=== PATIENT | female | born 1950 | race Caucasian/White ===

== ENCOUNTER → 2016-09-14 | Outpatient (CLI) | payer MEDICARE, OTHER ==
--- NOTE | 2016-09-14 15:10 | MR ---
EXAMINATION TYPE: MR angio neck wo/w con DATE OF EXAM: 09/14/2016 2:10 PM COMPARISON: 12/31/2014 HISTORY: Carotid stenosis, Visual disturbance, BP fluctuation Three-dimensional [id number] cervical carotid MRA was performed with multiple intensity projectio n images submitted and source data reviewed at the workstation. Right carotid system: There is mild plaque seen about the common carotid artery. Mild plaque is also seen at the origin and proximal aspect of the right internal carotid artery. Stenosis is estimated at approximately 50%. Unchanged from prior study. Right external carotid artery right vertebral art gayathri are patent. Left carotid system: Mild plaque involving the left common carotid artery. Minimal plaque origin le ft ICA. No hemodynamically significant stenosis is appreciated. External carotid artery and the lef t vertebral artery are patent. Mild atheromatous change left external carotid artery. IMPRESSION: 1. Stable 50% stenosis origin right ICA. 2. No significant stenosis left ICA.
== END | disposition home or self-care (01) ==
LOC: RADMRIMAIN 12:52
PROVIDERS: ATTEND Family Medicine
DX: I65.21 Occlusion and stenosis of right carotid artery (principal)
CPT/HCPCS: 70549; A9577

== ENCOUNTER 2017-02-27 01:55 | Emergency (ER) | payer MEDICARE, OTHER ==
[2017-02-27 02:10] VITALS: RESP 20; TEMP 98.5
[2017-02-27] MEDS ORDERED: LEVALBUTEROL NEB 1.25 MG/3 ML AMP INHALATION STA (02:27)
[2017-02-27] MEDS ORDERED: IPRATROPIUM 0.5 MG/2.5 ML NEBU INHALATION STA (02:27)
--- NOTE | 2017-02-27 02:30 | ED ---
General Adult HPI - General Chief complaint: Shortness of Breath Stated complaint: SOB Time Seen by Provider: 02/27/17 02:21 Source: patient, RN notes reviewed Mode of arrival: wheelchair Limitations: no limitations - History of Present Illness Initial comments: Patient is a pleasant 66-year-old female presenting to the emergency Department with cough and difficulty breathing. Onset of symptoms was just a couple of days ago. Patient tried to call her doctor yesterday however he was not in the office. Patient complains of thick yellow-green sputum. Symptoms have worsened since yesterday. Patient is unclear if she is having fevers or not. No chest pain. No leg pain or leg swelling. Symptoms are similar to previous COPD however she is concerned she could be developing pneumonia. - Related Data Home Medications Medication Instructions Recorded Confirmed Hydrochlorothiazide [Hydrodiuril] 25 mg PO DAILY 03/23/14 06/04/16 Levothyroxine Sodium [Synthroid] 75 mcg PO Q48H 03/23/14 06/04/16 Levothyroxine Sodium [Synthroid] 150 mcg PO Q48H 03/23/14 06/04/16 Lisinopril [Prinivil] 20 mg PO BID 03/23/14 06/04/16 Mometasone Furoate [Asmanex] 1 puff INHALATION BID 03/23/14 06/04/16 traMADol HCL [Ultram] 75 - 100 mg PO Q6HR PRN 03/23/14 06/04/16 ALPRAZolam [Xanax] 0.25 mg PO BID PRN 08/05/15 06/04/16 Metoprolol Tartrate [Lopressor] 25 mg PO BID 09/17/15 06/04/16 Aspirin 650 mg PO DAILY PRN 11/29/15 06/04/16 Cholecalciferol [Vitamin D3] 4,000 unit PO DAILY 11/29/15 06/04/16 Pantoprazole Sodium 40 mg PO DAILY 11/29/15 06/04/16 amLODIPine BESYLATE [Norvasc] 5 mg PO BID 11/29/15 06/04/16 Mometasone Furoate [Asmanex] 1 puff INHALATION BID 12/07/15 06/04/16 Previous Rx's Medication Instructions Recorded Ciprofloxacin HCl [Cipro] 500 mg PO Q12HR #14 tablet 12/07/15 Doxycycline Monohydrate [Monodox] 100 mg PO Q12HR #14 cap 06/04/16 predniSONE 50 mg PO DAILY #5 tab 06/04/16 Azithromycin [Zithromax Z-pack] 250 mg PO DIRECTED #6 tab 02/27/17 predniSONE 20 mg PO BID #8 tab 02/27/17 Allergies Allergy/AdvReac Type Severity Reaction Status Date / Time adhesive tape Allergy Severe bruises Verified 02/27/17 02:10 albuterol Allergy Rapid Verified 02/27/17 02:10 Heart Rate clindamycin Allergy Rash/Hives Verified 02/27/17 02:10 Iodinated Contrast- Oral and Allergy Rash/Hives Verified 02/27/17 02:10 IV Dye diphenhydramine HCl AdvReac Unknown KEEPS HER Verified 02/27/17 02:10 [From Benadryl] AWAKE. bandaid Allergy Severe bruise Uncoded 02/27/17 02:10 Review of Systems ROS Statement: Those systems with pertinent positive or pertinent negative responses have been documented in the HPI. ROS Other: All systems not noted in ROS Statement are negative. Constitutional: Denies: weakness Eyes: Denies: eye pain ENT: Denies: ear pain Respiratory: Reports: cough, dyspnea Cardiovascular: Denies: chest pain Endocrine: Denies: fatigue Gastrointestinal: Denies: abdominal pain Genitourinary: Denies: dysuria Musculoskeletal: Denies: back pain Skin: Denies: rash Neurological: Denies: weakness Past Medical History Past Medical History: COPD, GERD/Reflux, Hypertension, Osteoarthritis (OA), Thyroid Disorder Additional Past Medical History / Comment(s): Osteopenia, carotid stenosis, back pain, hypothyroid., STATES BRUISE ON FACE FROM TEETH EXTRACTION., PTS MOTHER LIVES WITH HER (90 YRS OLD). History of Any Multi-Drug Resistant Organisms: None Reported Past Surgical History: No Surgical Hx Reported Additional Past Anesthesia/Blood Transfusion Reaction / Comment(s): PT HAS NEVER RECEIVED ANESTHESIA Past Psychological History: Anxiety, Panic Disorder Smoking Status: Heavy tobacco smoker Past Alcohol Use History: None Reported Past Drug Use History: None Reported - Past Family History Mother Family Medical History: Thyroid Disorder Additional Family Medical History / Comment(s): hypothyroid Father Additional Family Medical History / Comment(s): unknown cardiac issues Brother(s) Additional Family Medical History / Comment(s): Chrons General Exam Limitations: no limitations General appearance: alert, in no apparent distress Head exam: Present: atraumatic Eye exam: Present: normal appearance, PERRL ENT exam: Present: normal oropharynx Neck exam: Present: normal inspection Respiratory exam: Present: wheezes Cardiovascular Exam: Present: regular rate, normal rhythm GI/Abdominal exam: Present: soft. Absent: tenderness Extremities exam: Present: normal inspection. Absent: pedal edema, calf tenderness Neurological exam: Present: alert Psychiatric exam: Present: normal affect, normal mood Skin exam: Present: normal color Course Vital Signs 02/27/17 02/27/17 02/27/17 02:02 02:57 03:07 Temperature 98.5 F Pulse Rate 93 92 92 Respiratory 20 Rate Blood Pressure 180/79 O2 Sat by Pulse 95 Oximetry Medical Decision Making - Medical Decision Making Patient reevaluated and improved. Patient requesting discharge. Patient requests antibiotics and steroids. Patient updated on results and need for close follow-up. - Radiology Data Radiology results: image reviewed (Chest x-ray shows chronic interstitial changes without acute process.) Disposition Clinical Impression: Acute bronchitis Disposition: HOME SELF-CARE Instructions: Acute Bronchitis (ED) Additional Instructions: Please follow-up to primary care physician in the next day or 2 for recheck. Return for fevers, difficult to breathing, pain, worsening symptoms or other concerns. Prescriptions: Azithromycin [Zithromax Z-pack] 250 mg PO DIRECTED #6 tab predniSONE 20 mg PO BID #8 tab Referrals: Martin Coe MD [Primary Care Provider] - 1-2 days Time of Disposition: 03:09
[2017-02-27] MEDS ORDERED: LEVALBUTEROL NEB (CONC) 1.25 MG/0.5 ML AMP INHALATION STA ×2 (02:49→02:54)
--- NOTE | 2017-02-27 03:02 | XR ---
EXAM: XR Chest, 2 Views CLINICAL HISTORY: Cough TECHNIQUE: Frontal and lateral views of the chest. COMPARISON: No relevant prior studies available. FINDINGS: Lungs: Coarsening of interstitial markings is again seen, likely representing chronic interstitial lung changes. Flattening of both hemidiaphragms is noted consistent with COPD. Pleural space: Unremarkable. No pneumothorax. Heart: Unremarkable. No cardiomegaly. Mediastinum: Unremarkable. Bones/joints: Unchanged osseous structures. Osteopenia suggested. IMPRESSION: Chronic interstitial lung changes with evidence of COPD. No radiographic evidence of acute cardiopulmonary process.
[2017-02-27] MEDS ORDERED: predniSONE 20 MG TAB PO STA (03:10)
[2017-02-27] MEDS ORDERED: AZITHROMYCIN 500 MG TAB PO STA (03:10)
[2017-02-27 03:25] VITALS: BP 123/60; PULSE 84
== END 2017-02-27 03:25 | disposition home or self-care (01) ==
LOC: EC 01:55
DX: J20.9 Acute bronchitis, unspecified (principal); I10 Essential (primary) hypertension; J44.9 Chronic obstructive pulmonary disease, unspecified; K21.9 Gastro-esophageal reflux disease without esophagitis; E03.9 Hypothyroidism, unspecified; F17.200 Nicotine dependence, unspecified, uncomplicated; Z79.51 Long term (current) use of inhaled steroids; Z79.899 Other long term (current) drug therapy; Z88.1 Allergy status to other antibiotic agents; Z88.8 Allergy status to other drugs, medicaments and biological substances; Z91.041 Radiographic dye allergy status; Z91.048 Other nonmedicinal substance allergy status
CPT/HCPCS: 99285; 94640; 71020; J7512

== ENCOUNTER → 2017-12-11 | Outpatient (CLI) | payer MEDICARE, OTHER ==
--- NOTE | 2017-12-11 10:19 | BD ---
EXAMINATION TYPE: Axial Bone Density DATE OF EXAM: 12/11/2017 CLINICAL HISTORY: Height: 60 inches Weight: 159 FRAX RISK QUESTIONS: Alcohol (3 or more units per day): no Family History (Parent hip fracture): no Glucocorticoids (More than 3mos): Arnuity about one year & Asmanex before that (Ex: prednisone, prednisolone, methylprednisolone, dexamethasone, and hydrocortisone). History of Fracture in Adulthood: no Secondary Osteoporosis: 1. Type 1 Diabetes: no 2. Hyperthyroidism: NO 3. Menopause before 45: NO 4. Malnutrition: NO 5. Chronic liver disease: no Rheumatoid Arthritis: no Current Tobacco Use: yes RISK FACTORS HISTORY OF: Family History of Osteoporosis: yes, mother Active: yes Diet low in dairy products/other sources of calcium: no Postmenopausal woman: YES Take estrogen and/or progesterone medications: no Lost more than 2 inches in height since high school: no Frequent falls: no Poor Health: "pretty lousy" Hyperparathyroidism: no Adrenal Insufficiency: no MEDICATIONS: Prednisone or other steroids: yes, inhaler How Long: several years Thyroid Medications: YES Which medication: Levothyroxine How Long: OVER 5 YEARS Osteoporosis Medications: no Additional Medications: Vitamin D3 , blood pressure meds, diaretic, statin, tranadol Additional History: carotid stenosis EXAM MEASUREMENTS: Bone mineral densitometry was performed using the [employer] System. Bone mineral density as measured about the Lumbar spine is: ----- L1-L4(G/cm2): 0.871 T Score Values are as follows: ----- L2: -2.8 ----- L3: -2.7 ----- L4: -2.7 ----- L1-L4: -2.5 Bone mineral density has: Decreased -8.3% since study of: 10/29/2014 Bone mineral density about the R hip (g/cm2): 0.702 Bone mineral density about the L hip (g/cm2): 0.680 T Score values are as follows: -----R Neck: -2.4 -----L Neck: -2.6 -----R Total: -1.8 -----L Total: -2.0 Bone mineral density has: Decreased -10.2% since study of: 10/29/2014 IMPRESSION: 1. Osteoporosis lumbar spine. 2. Osteopenia bilateral femora. NOTE: T-SCORE=SD OF THE YOUNG ADULT MEAN.
--- NOTE | 2017-12-12 08:56 | MM ---
Reason for exam: screening (asymptomatic). Last mammogram was performed 2 years and 1 month ago. History: Patient is postmenopausal. Took unspecified hormones for 2 years beginning at age 55. Physical Findings: A clinical breast exam by your physician is recommended on an annual basis and results should be correlated with mammographic findings. MG Screening Mammo w CAD Bilateral CC and MLO view(s) were taken. Prior study comparison: November 24, 2015, bilateral MG screening mammo w CAD. October 29, 2014, bilateral MG screening mammo w CAD. There are scattered fibroglandular densities. There is no discrete abnormality. No significant changes when compared with prior studies. ASSESSMENT: Negative, BI-RAD 1 RECOMMENDATION: Routine screening mammogram of both breasts in 1 year.
== END | disposition home or self-care (01) ==
LOC: RADMAMWWP 08:48
PROVIDERS: ATTEND Family Medicine
DX: Z12.31 Encounter for screening mammogram for malignant neoplasm of breast (principal); M81.0 Age-related osteoporosis without current pathological fracture; M85.851 Other specified disorders of bone density and structure, right thigh; M85.852 Other specified disorders of bone density and structure, left thigh; Z78.0 Asymptomatic menopausal state
CPT/HCPCS: 77067; 77080

== ENCOUNTER → 2018-09-18 | Outpatient (CLI) | payer MEDICARE, OTHER ==
[2018-09-18 18:28] LABS: ALT 14 U/L (8-44); AST 20 U/L (13-35); Albumin/Globulin Ratio 2.44 (1.60-3.17); Alkaline Phosphatase 80 U/L (41-126); Bilirubin, Conjugated <0.20 mg/dL (0.20-0.40); Calcium 9.9 mg/dL (8.7-10.3); Carbon Dioxide 23.5 mmol/L (21.6-31.8); Chloride 111 mmol/L (96-109); Globulin 1.8 g/dL (1.6-3.3); Glucose 89 mg/dL (70-110); Potassium 4.5 mmol/L (3.5-5.5); Sodium 142 mmol/L (135-145); Total Bilirubin 0.3 mg/dL (0.2-1.2); Total Protein 6.2 g/dL (6.2-8.2)
== END | disposition home or self-care (01) ==
LOC: LABWHC1 08:31
PROVIDERS: ATTEND Nurse Practitioner Women's Health
DX: R94.4 Abnormal results of kidney function studies (principal)
CPT/HCPCS: 36415; 80048; 80076

== ENCOUNTER → 2018-10-18 | Outpatient (CLI) | payer MEDICARE, OTHER ==
[2018-10-18 23:42] LABS: Hemoglobin A1C 6.5 % (4.0-6.0)
== END ==
LOC: LABWHC1 14:43
PROVIDERS: ATTEND Family Medicine
DX: Z00.00 Encounter for general adult medical examination without abnormal findings (principal); E11.9 Type 2 diabetes mellitus without complications; I10 Essential (primary) hypertension; Z79.899 Other long term (current) drug therapy
CPT/HCPCS: 36415; 83036; 86803

== ENCOUNTER → 2018-11-20 | Outpatient (CLI) | payer MEDICARE, OTHER ==
[2018-11-20 18:40] LABS: Rheumatoid Factor 7 IU/mL (0-15)
[2018-11-20 18:59] LABS: C Reactive Protein <0.4 mg/dL (0.0-0.8); Uric Acid 4.6 mg/dL (2.9-7.7)
== END | disposition home or self-care (01) ==
LOC: LABWHC1 12:24
PROVIDERS: ATTEND Family Medicine
DX: J44.9 Chronic obstructive pulmonary disease, unspecified (principal); E11.9 Type 2 diabetes mellitus without complications; E78.5 Hyperlipidemia, unspecified; I10 Essential (primary) hypertension; E03.9 Hypothyroidism, unspecified; R94.4 Abnormal results of kidney function studies
CPT/HCPCS: 36415; 84550; 85652; 86038; 86140; 86431; 86780

== ENCOUNTER → 2019-03-04 | Outpatient (CLI) | payer MEDICARE, OTHER ==
[2019-03-04 11:10] LABS: Anisocytosis Slight; Basophils # (A) 0.1 k/uL (0-0.2); Basophils % (A) 1 %; Eosinophils # (A) 0.2 k/uL (0-0.7); Eosinophils % (A) 2 %; HCT 41.6 % (34.0-46.0); HGB 13.5 gm/dL (11.4-16.0); Lymphocytes # (A) 2.4 k/uL (1.0-4.8); Lymphocytes % (A) 29 %; MCH 27.6 pg (25.0-35.0); MCHC 32.4 g/dL (31.0-37.0); MCV 85.1 fL (80.0-100.0); Mean Platelet Volume 7.1; Monocytes # (A) 0.5 k/uL (0-1.0); Monocytes % (A) 6 %; Neutrophils # (A) 4.9 k/uL (1.3-7.7); Neutrophils % (A) 60 %; Platelet Count 287 k/uL (150-450); RBC 4.89 m/uL (3.80-5.40); RDW 16.6 % (11.5-15.5); WBC 8.2 k/uL (3.8-10.6)
[2019-03-04 17:38] LABS: African American GFR (CKD) 76.1 (60.0-200.0); Albumin 4.5 g/dL (3.80-4.90); Albumin/Globulin Ratio 2.37 (1.60-3.17); BUN/Creat Ratio 24.44 Ratio (12.00-20.00); Calcium 10.1 mg/dL (8.7-10.3); Chol/HDL Ratio 2.38; Globulin 1.9 g/dL (1.6-3.3); LDL Cholesterol,Calculated 61.8 mg/dL (0.0-131.0); Total Bilirubin 0.3 mg/dL (0.2-1.2); Total Protein 6.4 g/dL (6.2-8.2); VLDL Calculation 15.2 mg/dL (5.00-40.00)
[2019-03-04 20:36] LABS: Hemoglobin A1C 6.2 % (4.0-6.0)
== END | disposition home or self-care (01) ==
LOC: LABWHC1 09:40
PROVIDERS: ATTEND Family Medicine
DX: I10 Essential (primary) hypertension (principal); E11.9 Type 2 diabetes mellitus without complications; F41.1 Generalized anxiety disorder; E78.49 Other hyperlipidemia
CPT/HCPCS: 36415; 80053; 80061; 83036; 84443; 85025

== ENCOUNTER 2019-06-07 10:18 | Emergency (ER) | payer MEDICARE, OTHER ==
[2019-06-07 10:44] VITALS: RESP 16
--- NOTE | 2019-06-07 11:01 | ED ---
SOB HPI - General Chief Complaint: Shortness of Breath Stated Complaint: STAR Time Seen by Provider: 06/07/19 10:25 Source: patient Mode of arrival: ambulatory Limitations: no limitations - History of Present Illness Initial Comments: Patient is a 68-year-old female, past medical history of COPD, presenting to emergency Department with complaints of shortness of breath and cough that started this morning. Patient noticed mild symptoms yesterday but they increased today. Patient is also producing yellow phlegm mixed with small amount of blood. Patient states she has shortness of breath when walking around her house. Patient states she has tried her inhalers at home with only minimal relief. Patient states that she knows her diagnosis is pneumonia and just wants updated medication. Patient states she has amoxicillin and steroids at home. Patient is refusing breathing treatment already. Patient denies fever, chills, chest pain, nausea, vomiting. Patient has no other complaints at this time. Upon arrival to the ER, her BP is slightly elevated at 176/83, 93% on room air, rest of vitals normal. - Related Data Home Medications Medication Instructions Recorded Confirmed Levothyroxine Sodium [Synthroid] 75 mcg PO Q48H 03/23/14 06/07/19 Levothyroxine Sodium [Synthroid] 150 mcg PO Q48H 03/23/14 06/07/19 traMADol HCL [Ultram] 75 - 100 mg PO Q6HR PRN 03/23/14 06/07/19 ALPRAZolam [Xanax] 0.25 mg PO BID PRN 08/05/15 06/07/19 Metoprolol Tartrate [Lopressor] 25 mg PO BID 09/17/15 06/07/19 Aspirin 325 mg PO BID 11/29/15 06/07/19 Pantoprazole Sodium 40 mg PO DAILY 11/29/15 06/07/19 amLODIPine BESYLATE [Norvasc] 5 mg PO BID 11/29/15 06/07/19 metFORMIN HCL ER [Glucophage Xr] 1,000 mg PO DAILY 04/22/19 06/07/19 Atorvastatin [Lipitor] 40 mg PO HS 06/07/19 06/07/19 Calcium Carbonate [Calcium] 600 mg PO DAILY 06/07/19 06/07/19 Cyanocobalamin (Vitamin B-12) 1,000 mcg PO DAILY 06/07/19 06/07/19 [Vitamin B-12] Fluticasone Furoate [Arnuity 1 puff INHALATION RT-DAILY 06/07/19 06/07/19 Ellipta] L.acidoph,Paracasei, B.lactis 1 cap PO DAILY 06/07/19 06/07/19 [Probiotic] Lisinopril [Zestril] 20 mg PO BID 06/07/19 06/07/19 Previous Rx's Medication Instructions Recorded Azithromycin [Zithromax Z-pack] 0 mg PO DIRECTED #1 pack 06/07/19 predniSONE 20 mg PO BID 5 Days #10 tab 06/07/19 Allergies Allergy/AdvReac Type Severity Reaction Status Date / Time adhesive tape Allergy Severe bruises Verified 06/07/19 11:12 albuterol Allergy Rapid Verified 06/07/19 11:12 Heart Rate clindamycin Allergy Rash/Hives Verified 06/07/19 11:12 Iodinated Contrast Media Allergy Rash/Hives Verified 06/07/19 11:12 diphenhydramine HCl AdvReac Unknown KEEPS HER Verified 06/07/19 11:12 [From Benadryl] AWAKE. bandaid Allergy Severe bruise Uncoded 06/07/19 10:24 Review of Systems ROS Statement: Those systems with pertinent positive or pertinent negative responses have been documented in the HPI. ROS Other: All systems not noted in ROS Statement are negative. Past Medical History Past Medical History: COPD, Diabetes Mellitus, GERD/Reflux, Hypertension, Osteoarthritis (OA), Thyroid Disorder Additional Past Medical History / Comment(s): Osteopenia, carotid stenosis, back pain, hypothyroid., STATES BRUISE ON FACE FROM TEETH EXTRACTION., PTS MOTHER LIVES WITH HER (90 YRS OLD). History of Any Multi-Drug Resistant Organisms: None Reported Past Surgical History: No Surgical Hx Reported Additional Past Anesthesia/Blood Transfusion Reaction / Comment(s): PT HAS NEVER RECEIVED ANESTHESIA Past Psychological History: Anxiety, Panic Disorder Smoking Status: Heavy tobacco smoker Past Alcohol Use History: None Reported Past Drug Use History: None Reported - Past Family History Mother Family Medical History: Thyroid Disorder Additional Family Medical History / Comment(s): hypothyroid Father Additional Family Medical History / Comment(s): unknown cardiac issues Brother(s) Additional Family Medical History / Comment(s): Chrons General Exam - General Exam Comments Initial Comments: GENERAL: Well-appearing, well-nourished and in no acute distress. HEAD: Atraumatic, normocephalic. EYES: Pupils equal round and reactive to light, extraocular movements intact, sclera anicteric, conjunctiva are normal. ENT: TMs normal, nares patent, oropharynx clear without exudates. Moist mucous membranes. NECK: Normal range of motion, supple without lymphadenopathy or JVD. LUNGS: Mild scattered wheezes throughout, no rales or rhonchi. HEART: Regular rate and rhythm without murmurs, rubs or gallops. ABDOMEN: Soft, nontender, normoactive bowel sounds. No guarding, no rebound. No masses appreciated. : Deferred EXTREMITIES: Normal range of motion, no pitting or edema. No clubbing or cyanosis. NEUROLOGICAL: Normal speech, normal gait. SKIN: Warm, Dry, normal turgor, no rashes or lesions noted. Limitations: no limitations Course Vital Signs 06/07/19 06/07/19 06/07/19 10:22 10:41 11:33 Temperature 97.6 F 98.1 F 98 F Pulse Rate 79 78 81 Respiratory 22 16 16 Rate Blood Pressure 176/83 155/86 135/84 O2 Sat by Pulse 93 L 97 95 Oximetry Medical Decision Making - Medical Decision Making Patient is a 68-year-old female presenting with a cough and shortness of breath since this morning. Patient has history of COPD. Patient refusing breathing treatment. Chest x-ray shows no acute abnormalities. Patient is only requesting updated antibiotic and steroids as the ones she has at home is . Patient is refusing all other lab workup. Patient will be given prescription for azithromycin as well as steroids and will follow up with PCP on Sunday. Patient stable for discharge at this time and she is in agreement with this plan of care. Return parameters were discussed with the patient she verbalized understanding. Case discussed with Dr. Martin. Disposition Clinical Impression: Bronchitis Disposition: HOME SELF-CARE Condition: Stable Instructions (If sedation given, give patient instructions): Acute Bronchitis (ED) Additional Instructions: Please return to the Emergency Department if symptoms worsen or any other concerns. Take antibiotics and steroids as prescribed. Follow-up with PCP as discussed. Prescriptions: predniSONE 20 mg PO BID 5 Days #10 tab Azithromycin [Zithromax Z-pack] 0 mg PO DIRECTED #1 pack Is patient prescribed a controlled substance at d/c from ED?: No Referrals: Zach Ramirez MD [Primary Care Provider] - 1-2 days
--- NOTE | 2019-06-07 11:02 | XR ---
EXAMINATION TYPE: XR chest 2V DATE OF EXAM: 06/07/2019 HISTORY: cough, hx copd. REFERENCE: Previous study dated 02/27/2017. FINDINGS: Lung volumes are prominent. The lungs are clear. Pleural spaces are clear. Heart size upper limits of normal. IMPRESSION: PLEASE CORRELATE FOR COPD.
[2019-06-07 11:34] VITALS: BP 135/84; PULSE 81; TEMP 98
== END 2019-06-07 11:34 | disposition home or self-care (01) ==
LOC: EC 10:18
DX: J40 Bronchitis, not specified as acute or chronic (principal); J44.9 Chronic obstructive pulmonary disease, unspecified; E11.9 Type 2 diabetes mellitus without complications; K21.9 Gastro-esophageal reflux disease without esophagitis; I10 Essential (primary) hypertension; M19.90 Unspecified osteoarthritis, unspecified site; E03.9 Hypothyroidism, unspecified; F17.200 Nicotine dependence, unspecified, uncomplicated; Z88.1 Allergy status to other antibiotic agents; Z88.8 Allergy status to other drugs, medicaments and biological substances; Z91.041 Radiographic dye allergy status; Z91.048 Other nonmedicinal substance allergy status; Z79.51 Long term (current) use of inhaled steroids; Z79.82 Long term (current) use of aspirin; Z79.84 Long term (current) use of oral hypoglycemic drugs; Z79.890 Hormone replacement therapy; Z79.899 Other long term (current) drug therapy; Z53.20 Procedure and treatment not carried out because of patient's decision for unspecified reasons
CPT/HCPCS: 71046; 99284

== ENCOUNTER → 2019-07-03 | Outpatient (CLI) | payer MEDICARE, OTHER ==
--- NOTE | 2019-07-04 07:28 | US ---
EXAMINATION TYPE: US carotid duplex BILAT DATE OF EXAM: 07/03/2019 COMPARISON: NONE CLINICAL HISTORY: I65.29. stenosis, no h/o stroke EXAM MEASUREMENTS: RIGHT: Peak Systolic Velocity (PSV) cm/sec ----- Right CCA: 58.6 ----- Right ICA: 386 ----- Right ECA: 121 ICA/CCA ratio: 6.6 RIGHT: End Diastole cm/sec ----- Right CCA: 37.5 ----- Right ICA: 53.6 ----- Right ECA: 17.6 LEFT: Peak Systolic Velocity (PSV) cm/sec ----- Left CCA: 88.8 ----- Left ICA: 96.6 ----- Left ECA: 106 ICA/CCA ratio: 1.0 LEFT: End Diastole cm/sec ----- Left CCA: 23.3 ----- Left ICA: 30.3 ----- Left ECA: 16.9 VERTEBRALS (direction of flow): Right Vertebral: Antegrade Left Vertebral: Antegrade Rhythm: Normal Increased velocities seen at proximal right ICA with significant stenosis IMPRESSION: 1. Stenosis of greater than 70% within the right internal carotid artery. CTA neck is recommended for more accurate assessment of degree of stenosis. 2. No hemodynamically significant stenosis seen in the left internal carotid artery, common carotid a rtery or external carotid artery. Criteria for Assigning % of Stenosis / Diameter reduction (Estimation based on the indirect measurements of the internal carotid artery velocities (ICA PSV). 1. Normal (no stenosis)=ICA PSV < 125 cm/s: ratio < 2.0: ICA EDV<40 cm/s. 2. Less than 50% stenosis=ICA PSV < 125 cm/s: ratio < 2.0: ICA EDV<40 cm/s. 3. 50 to 69% stenosis=ICA PSV of 125 to 230 cm/s: ration 2.0 ? 4.0: ICA EDV 40-100 cm/s. 4. Greater than 70% stenosis to near occlusion= ICA PSV > 230 cm/s: ratio > 4.0: ICA EDV > 100 cm/s. 5. Near occlusion= ICA PSV velocities may be low or undetectable: variable ratio and ICA EDV. 6. Total occlusion=unable to detect flow.
== END | disposition home or self-care (01) ==
LOC: RADUSWWP 15:02
PROVIDERS: ATTEND Family Medicine
DX: I65.21 Occlusion and stenosis of right carotid artery (principal); Z88.1 Allergy status to other antibiotic agents; Z91.041 Radiographic dye allergy status
CPT/HCPCS: 93880

== ENCOUNTER 2019-07-19 11:24 | Emergency (ER) | payer MEDICARE, OTHER ==
[2019-07-19 11:28] VITALS: RESP 20; TEMP 98.2
[2019-07-19] MEDS ORDERED: IPRATROPIUM 0.5 MG/2.5 ML NEBU INHALATION STA (11:44)
[2019-07-19] MEDS ORDERED: methylPREDNISolone SOD SUCCI 125 MG/2 ML VIAL IV STA (11:44)
[2019-07-19 12:16] LABS: Anisocytosis Slight; Basophils # (A) 0.1 k/uL (0-0.2); Basophils % (A) 2 %; Eosinophils % (A) 0 %; HCT 44.3 % (34.0-46.0); HGB 14.2 gm/dL (11.4-16.0); Lymphocytes # (A) 1.4 k/uL (1.0-4.8); Lymphocytes % (A) 17 %; MCH 27.3 pg (25.0-35.0); MCV 85.2 fL (80.0-100.0); Mean Platelet Volume 8.2; Monocytes # (A) 0.6 k/uL (0-1.0); Monocytes % (A) 7 %; Neutrophils # (A) 5.8 k/uL (1.3-7.7); Neutrophils % (A) 72 %; Platelet Count 227 k/uL (150-450); RDW 16.1 % (11.5-15.5)
[2019-07-19 12:19] LABS: ALT 32 U/L (4-34); AST 40 U/L (14-36); African American GFR (CKD) >90 (>60 ml/min/1.73 sqM); Albumin 4.4 g/dL (3.5-5.0); Alkaline Phosphatase 107 U/L (38-126); Anion Gap 9 mmol/L; Blood Urea Nitrogen 18 mg/dL (7-17); Calcium 10.2 mg/dL (8.4-10.2); Carbon Dioxide 23 mmol/L (22-30); Chloride 109 mmol/L (98-107); Glucose 109 mg/dL (74-99); Magnesium 1.8 mg/dL (1.6-2.3); Non-African American GFR(CKD) 80 (>60 ml/min/1.73 sqM); Sodium 141 mmol/L (137-145); Total Bilirubin 0.3 mg/dL (0.2-1.3); Total Protein 7.4 g/dL (6.3-8.2)
--- NOTE | 2019-07-19 12:22 | ED ---
General Adult HPI - General Chief complaint: Shortness of Breath Stated complaint: Sob Time Seen by Provider: 07/19/19 11:38 Source: patient, RN notes reviewed, old records reviewed Mode of arrival: ambulatory Limitations: no limitations - History of Present Illness Initial comments: 60-year-old female with history of COPD, current smoker presenting for evaluation of severe cough and moderate dyspnea. Patient's symptoms have been present for the past 24 hours. She had an episode of bronchitis approximately 5 weeks ago and states this is similar. Cough is predominantly dry with occasional sputum production. She denies fever. Denies central chest pain. Denies lower extremity pain or swelling. Denies fever or chills. She is ALLERGIC to albuterol and has been using her Xopenex inhaler more frequently. She is also on 50 mg of oral steroids which was prescribed by her primary care physician. - Related Data Home Medications Medication Instructions Recorded Confirmed Levothyroxine Sodium [Synthroid] 75 mcg PO Q48H 03/23/14 06/07/19 Levothyroxine Sodium [Synthroid] 150 mcg PO Q48H 03/23/14 06/07/19 traMADol HCL [Ultram] 75 - 100 mg PO Q6HR PRN 03/23/14 06/07/19 ALPRAZolam [Xanax] 0.25 mg PO BID PRN 08/05/15 06/07/19 Metoprolol Tartrate [Lopressor] 25 mg PO BID 09/17/15 06/07/19 Aspirin 325 mg PO BID 11/29/15 06/07/19 Pantoprazole Sodium 40 mg PO DAILY 11/29/15 06/07/19 amLODIPine BESYLATE [Norvasc] 5 mg PO BID 11/29/15 06/07/19 metFORMIN HCL ER [Glucophage Xr] 1,000 mg PO DAILY 04/22/19 06/07/19 Atorvastatin [Lipitor] 40 mg PO HS 06/07/19 06/07/19 Calcium Carbonate [Calcium] 600 mg PO DAILY 06/07/19 06/07/19 Cyanocobalamin (Vitamin B-12) 1,000 mcg PO DAILY 06/07/19 06/07/19 [Vitamin B-12] Fluticasone Furoate [Arnuity 1 puff INHALATION RT-DAILY 06/07/19 06/07/19 Ellipta] L.acidoph,Paracasei, B.lactis 1 cap PO DAILY 06/07/19 06/07/19 [Probiotic] Lisinopril [Zestril] 20 mg PO BID 06/07/19 06/07/19 Previous Rx's Medication Instructions Recorded Azithromycin [Zithromax Z-pack] 0 mg PO DIRECTED #1 pack 06/07/19 predniSONE [Deltasone] 20 mg PO BID 5 Days #10 tab 06/07/19 Oseltamivir [Tamiflu] 75 mg PO Q12HR #10 cap 07/19/19 Allergies Allergy/AdvReac Type Severity Reaction Status Date / Time adhesive tape Allergy Severe bruises Verified 06/07/19 11:12 albuterol Allergy Rapid Verified 06/07/19 11:12 Heart Rate clindamycin Allergy Rash/Hives Verified 06/07/19 11:12 Iodinated Contrast Media Allergy Rash/Hives Verified 06/07/19 11:12 diphenhydramine HCl AdvReac Unknown KEEPS HER Verified 06/07/19 11:12 [From Benadryl] AWAKE. bandaid Allergy Severe bruise Uncoded 06/07/19 10:24 Review of Systems ROS Statement: Those systems with pertinent positive or pertinent negative responses have been documented in the HPI. ROS Other: All systems not noted in ROS Statement are negative. Past Medical History Past Medical History: COPD, Diabetes Mellitus, GERD/Reflux, Hypertension, Osteoarthritis (OA), Thyroid Disorder Additional Past Medical History / Comment(s): Osteopenia, carotid stenosis, back pain, hypothyroid., STATES BRUISE ON FACE FROM TEETH EXTRACTION., PTS MOTHER LIVES WITH HER (90 YRS OLD). History of Any Multi-Drug Resistant Organisms: None Reported Past Surgical History: No Surgical Hx Reported Additional Past Anesthesia/Blood Transfusion Reaction / Comment(s): PT HAS NEVER RECEIVED ANESTHESIA Past Psychological History: Anxiety, Panic Disorder Smoking Status: Current every day smoker Past Alcohol Use History: None Reported Past Drug Use History: None Reported - Past Family History Mother Family Medical History: Thyroid Disorder Additional Family Medical History / Comment(s): hypothyroid Father Additional Family Medical History / Comment(s): unknown cardiac issues Brother(s) Additional Family Medical History / Comment(s): Chrons General Exam Limitations: no limitations General appearance: alert, in no apparent distress Head exam: Present: atraumatic, normocephalic Eye exam: Present: normal appearance, PERRL ENT exam: Present: normal exam Neck exam: Present: normal inspection. Absent: tenderness, meningismus Respiratory exam: Present: respiratory distress, wheezes, accessory muscle use, decreased breath sounds Cardiovascular Exam: Present: regular rate, normal rhythm GI/Abdominal exam: Present: soft. Absent: distended, tenderness Extremities exam: Present: normal inspection, normal capillary refill. Absent: pedal edema Back exam: Present: normal inspection Neurological exam: Present: alert, oriented X3 Psychiatric exam: Present: normal affect, normal mood Skin exam: Present: warm, dry, intact. Absent: cyanosis, diaphoretic Course Vital Signs 07/19/19 07/19/19 07/19/19 11:26 11:28 11:59 Temperature 98.2 F Pulse Rate 79 74 Respiratory 20 20 Rate Blood Pressure 167/64 O2 Sat by Pulse 96 Oximetry 07/19/19 07/19/19 07/19/19 12:11 12:28 13:00 Temperature Pulse Rate 74 74 70 Respiratory 20 20 Rate Blood Pressure 137/78 140/69 O2 Sat by Pulse 95 95 Oximetry EKG Findings - EKG Comments: EKG Findings:: EKG: Sinus rhythm with frequent PVC, rate of 81, VA interval 146, QRS duration 82, QTC 457, no ST segment elevation Medical Decision Making - Medical Decision Making 68 -year-old female presenting with cough and dyspnea. Patient is a current smoker. She has history of COPD, currently on 50 mg of prednisone prescribed by her primary care physician. She is on Xopenex as she has an ALLERGY to albuterol. Chest x-rays negative for focal pneumonia. She has normal CBC, normal CMP, and is influenza A positive. She is given an initial dose of Tamiflu in the emergency department. She's given Atrovent as this institution does not carry Xopenex. She can use her rescue inhaler as needed. She is eager for discharge. She will be present with worsening or changing symptoms. - Lab Data Result diagrams: 07/19/19 11:53 07/19/19 11:53 Lab Results 07/19/19 07/19/19 07/19/19 Range/Units 11:53 11:53 11:53 WBC 8.0 (3.8-10.6) k/uL RBC 5.20 (3.80-5.40) m/uL Hgb 14.2 (11.4-16.0) gm/dL Hct 44.3 (34.0-46.0) % MCV 85.2 (80.0-100.0) fL MCH 27.3 (25.0-35.0) pg MCHC 32.0 (31.0-37.0) g/dL RDW 16.1 H (11.5-15.5) % Plt Count 227 (150-450) k/uL Neutrophils % 72 % Lymphocytes % 17 % Monocytes % 7 % Eosinophils % 0 % Basophils % 2 % Neutrophils # 5.8 (1.3-7.7) k/uL Lymphocytes # 1.4 (1.0-4.8) k/uL Monocytes # 0.6 (0-1.0) k/uL Eosinophils # 0.0 (0-0.7) k/uL Basophils # 0.1 (0-0.2) k/uL Anisocytosis Slight Sodium 141 (137-145) mmol/L Potassium 4.0 (3.5-5.1) mmol/L Chloride 109 H (98-107) mmol/L Carbon Dioxide 23 (22-30) mmol/L Anion Gap 9 mmol/L BUN 18 H (7-17) mg/dL Creatinine 0.77 (0.52-1.04) mg/dL Est GFR (CKD-EPI)AfAm >90 (>60 ml/min/1.73 sqM) Est GFR (CKD-EPI)NonAf 80 (>60 ml/min/1.73 sqM) Glucose 109 H (74-99) mg/dL Plasma Lactic Acid Calderon 1.6 (0.7-2.0) mmol/L Calcium 10.2 (8.4-10.2) mg/dL Magnesium 1.8 (1.6-2.3) mg/dL Total Bilirubin 0.3 (0.2-1.3) mg/dL AST 40 H (14-36) U/L ALT 32 (4-34) U/L Alkaline Phosphatase 107 (38-126) U/L Total Protein 7.4 (6.3-8.2) g/dL Albumin 4.4 (3.5-5.0) g/dL Influenza Type A RNA (Not Detectd) Influenza Type B (PCR) (Not Detectd) 07/19/19 Range/Units 12:03 WBC (3.8-10.6) k/uL RBC (3.80-5.40) m/uL Hgb (11.4-16.0) gm/dL Hct (34.0-46.0) % MCV (80.0-100.0) fL MCH (25.0-35.0) pg MCHC (31.0-37.0) g/dL RDW (11.5-15.5) % Plt Count (150-450) k/uL Neutrophils % % Lymphocytes % % Monocytes % % Eosinophils % % Basophils % % Neutrophils # (1.3-7.7) k/uL Lymphocytes # (1.0-4.8) k/uL Monocytes # (0-1.0) k/uL Eosinophils # (0-0.7) k/uL Basophils # (0-0.2) k/uL Anisocytosis Sodium (137-145) mmol/L Potassium (3.5-5.1) mmol/L Chloride (98-107) mmol/L Carbon Dioxide (22-30) mmol/L Anion Gap mmol/L BUN (7-17) mg/dL Creatinine (0.52-1.04) mg/dL Est GFR (CKD-EPI)AfAm (>60 ml/min/1.73 sqM) Est GFR (CKD-EPI)NonAf (>60 ml/min/1.73 sqM) Glucose (74-99) mg/dL Plasma Lactic Acid Calderon (0.7-2.0) mmol/L Calcium (8.4-10.2) mg/dL Magnesium (1.6-2.3) mg/dL Total Bilirubin (0.2-1.3) mg/dL AST (14-36) U/L ALT (4-34) U/L Alkaline Phosphatase (38-126) U/L Total Protein (6.3-8.2) g/dL Albumin (3.5-5.0) g/dL Influenza Type A RNA Not Detected (Not Detectd) Influenza Type B (PCR) Detected H (Not Detectd) Disposition Clinical Impression: Acute exacerbation of chronic obstructive pulmonary disease, Influenza Disposition: HOME SELF-CARE Condition: Fair Instructions (If sedation given, give patient instructions): COPD (Chronic Obstructive Pulmonary Disease) (ED), Influenza (ED) Prescriptions: Oseltamivir [Tamiflu] 75 mg PO Q12HR #10 cap Is patient prescribed a controlled substance at d/c from ED?: No Referrals: Zach Ramirez MD [Primary Care Provider] - 1-2 days Time of Disposition: 14:07
--- NOTE | 2019-07-19 12:35 | XR ---
EXAMINATION TYPE: XR chest 2V DATE OF EXAM: 07/19/2019 HISTORY: difficulty breathing. REFERENCE: Previous study dated 06/07/2019. FINDINGS: The lungs are overinflated. Heart size upper limits of normal. Lungs and cells are clear. P leural spaces are clear. IMPRESSION: COPD.
[2019-07-19] MEDS ORDERED: OSELTAMIVIR 75 MG CAP PO STA (13:08)
[2019-07-19 14:18] VITALS: BP 130/83; PULSE 66
== END 2019-07-19 14:19 | disposition home or self-care (01) ==
LOC: EC 11:24
DX: J44.1 Chronic obstructive pulmonary disease with (acute) exacerbation (principal); J11.1 Influenza due to unidentified influenza virus with other respiratory manifestations; F41.9 Anxiety disorder, unspecified; F41.0 Panic disorder [episodic paroxysmal anxiety]; E11.9 Type 2 diabetes mellitus without complications; K21.9 Gastro-esophageal reflux disease without esophagitis; I10 Essential (primary) hypertension; M19.90 Unspecified osteoarthritis, unspecified site; E03.9 Hypothyroidism, unspecified; F17.200 Nicotine dependence, unspecified, uncomplicated; Z79.52 Long term (current) use of systemic steroids; Z79.82 Long term (current) use of aspirin; Z79.890 Hormone replacement therapy; Z79.84 Long term (current) use of oral hypoglycemic drugs; Z79.51 Long term (current) use of inhaled steroids; Z79.899 Other long term (current) drug therapy; Z88.8 Allergy status to other drugs, medicaments and biological substances; Z91.048 Other nonmedicinal substance allergy status; Z88.1 Allergy status to other antibiotic agents; Z91.041 Radiographic dye allergy status
CPT/HCPCS: 36415; 94640; 93005; 80053; 83605; 83735; 85025; 87040; 87502; 71046; 96374; 99285; J2930

== ENCOUNTER 2019-07-26 22:53 | Observation (INO) | payer MEDICARE, OTHER ==
--- NOTE | 2019-07-26 22:57 | ED ---
General Adult HPI - General Stated complaint: Head pain Time Seen by Provider: 07/26/19 22:55 Source: EMS Mode of arrival: EMS Limitations: no limitations - History of Present Illness Initial comments: Gabriela is a 69-year-old female who presents to the emergency department today for evaluation of right groin pain. Patient was evaluated early in the month and diagnosed with influenza she return to the ER with worsening short of breath and chest pain, she is found to have elevated troponin she underwent a cardiac catheterization through the right groin. Catheterization was clear of any atherosclerotic plaque and was determined she likely had some myocarditis secondary to influenza. Patient was subsequently discharged home. Patient return to the ER today via ambulance for evaluation of pain and swelling in her right groin. - Related Data Home Medications Medication Instructions Recorded Confirmed Levothyroxine Sodium [Synthroid] 75 mcg PO Q48H 03/23/14 07/21/19 Levothyroxine Sodium [Synthroid] 150 mcg PO Q48H 03/23/14 07/21/19 traMADol HCL [Ultram] 50 mg PO Q8H PRN 03/23/14 07/21/19 Metoprolol Tartrate [Lopressor] 25 mg PO BID 09/17/15 07/21/19 Pantoprazole Sodium 40 mg PO DAILY 11/29/15 07/21/19 Atorvastatin [Lipitor] 40 mg PO HS 06/07/19 07/21/19 Calcium Carbonate [Calcium] 600 mg PO DAILY 06/07/19 07/21/19 Cyanocobalamin (Vitamin B-12) 1,000 mcg PO DAILY 06/07/19 07/21/19 [Vitamin B-12] Fluticasone Furoate [Arnuity 1 puff INHALATION RT-DAILY 06/07/19 07/21/19 Ellipta] L.acidoph,Paracasei, B.lactis 1 cap PO DAILY 06/07/19 07/21/19 [Probiotic] Lisinopril [Zestril] 20 mg PO BID 06/07/19 07/21/19 Diclofenac Sodium [Voltaren] 75 mg PO BID 07/21/19 07/21/19 Levalbuterol Tartrate 2 puff INHALATION QID 07/21/19 07/21/19 [Levalbuterol Tartrate 45 MCG Hfa] Levalbuterol Tartrate 2 puff INHALATION QID PRN 07/21/19 07/21/19 [Levalbuterol Tartrate 45 MCG Hfa] Previous Rx's Medication Instructions Recorded Aspirin 81 mg PO DAILY #30 chew 07/25/19 Nicotine 21Mg/24Hr Patch [Habitrol] 1 patch TRANSDERM DAILY #30 patch 07/25/19 Sennosides [Senokot] 8.6 mg PO BID tab 07/25/19 Spironolactone [Aldactone] 25 mg PO DAILY #30 tab 07/25/19 metFORMIN HCL ER [Glucophage Xr] 500 mg PO BID #0 07/25/19 Allergies Allergy/AdvReac Type Severity Reaction Status Date / Time clindamycin Allergy Rash/Hives Verified 07/26/19 22:54 Iodinated Contrast Media Allergy Rash/Hives Verified 07/26/19 22:54 adhesive tape AdvReac Severe bruises Verified 07/26/19 22:54 diphenhydramine HCl AdvReac Unknown KEEPS HER Verified 07/26/19 22:54 [From Benadryl] AWAKE. albuterol AdvReac Rapid Verified 07/26/19 22:54 Heart Rate bandaid AdvReac Severe bruise Uncoded 07/26/19 22:54 Review of Systems ROS Statement: Those systems with pertinent positive or pertinent negative responses have been documented in the HPI. ROS Other: All systems not noted in ROS Statement are negative. Past Medical History Past Medical History: COPD, Diabetes Mellitus, GERD/Reflux, Hyperlipidemia, Hypertension, Pneumonia, Thyroid Disorder, Vascular Disorder Additional Past Medical History / Comment(s): NIDDM type II, bronchitis, R side caratid stenosis, osteoporosis, scoliosis, chronic pain bilateral hips/knees/ankles and rivs, hypothyroid, History of Any Multi-Drug Resistant Organisms: None Reported Past Surgical History: No Surgical Hx Reported Additional Past Anesthesia/Blood Transfusion Reaction / Comment(s): PT HAS NEVER RECEIVED ANESTHESIA Past Psychological History: Anxiety, Panic Disorder Smoking Status: Current every day smoker Past Alcohol Use History: None Reported Past Drug Use History: None Reported - Past Family History Mother Family Medical History: Thyroid Disorder Additional Family Medical History / Comment(s): hypothyroid Father Family Medical History: Myocardial Infarction ([place]) Additional Family Medical History / Comment(s): Father of a [place] before age 50 yrs. Brother(s) Additional Family Medical History / Comment(s): Chrons General Exam - General Exam Comments Initial Comments: Physical Exam GENERAL: Patient is well-developed and well-nourished. Patient is nontoxic and well-hydrated and is in no distress. HENT: Normocephalic, Atraumatic. EYES: PERRL, EOMI PULMONARY: Unlabored respirations. CARDIOVASCULAR: RRR Warm and well perfused extremities ABDOMEN: Non-distended SKIN: Bruising of bilateral upper extremities consistent with IV access and attempted arterial access for catheterization Hematoma in the right groin, no palpable thrill : Deferred NEUROLOGIC: Alert and oriented Normal speech Normal gait MUSCULOSKELETAL: Moving all extremities with no apparent injury PSYCHIATRIC: No SI/HI Limitations: no limitations Course Vital Signs 07/26/19 07/27/19 22:55 02:57 Temperature 98 F Pulse Rate 52 L 80 Respiratory 16 18 Rate Blood Pressure 165/56 150/68 O2 Sat by Pulse 96 98 Oximetry Medical Decision Making - Medical Decision Making She was seen and evaluated history is obtained from the patient and review of medical record 69-year-old female underwent cardiac catheterization through the right groin earlier in the week and now has painful swelling in the groin, concern for pseudoaneurysm therefore ultrasound was ordered and did result with a possible pseudoaneurysm with no signs of AV flow. Patient care was discussed with marine service station attendant Dr. Sims who perform the cath and recommends patient be placed in observation a medicine they will evaluate in the morning. Patient care was discussed patient's primary care physician Dr. Rubio who is familiar with patient and agrees with plan. - Lab Data Result diagrams: 07/27/19 02:06 07/27/19 02:06 Disposition Clinical Impression: Pseudoaneurysm following procedure Disposition: ADMITTED IP TO THIS HOSP Condition: Stable Is patient prescribed a controlled substance at d/c from ED?: No
--- NOTE | 2019-07-26 23:49 | US ---
EXAMINATION TYPE: US lower ext pseudo artery RT DATE OF EXAM: 07/26/2019 COMPARISON: NONE CLINICAL HISTORY: pseudoaneurysm. S/P heart cath yesterday, right groin pain EXAM PERFORMED: Grayscale and color Doppler duplex imaging performed of the groin, post cardiac cece ter to assess for pseudoaneurysm. SIDE PERFORMED: Right Color and Waveform Doppler performed to assess for the presence of pseudoaneurysm; Is there ultrasound evidence of a pseudoaneurysm: Yes, anterior to right POKER MACHINE ATTENDANT at puncture site shows a 3mm wide "stalk" with to/fro blood flow and small, possible pseudo= 1.5 x 0.8 cm anterior to stalk, very minimal flow within pseudo Is there evidence of AV shunting: No Is there a fluid collection present: No There is a pseudoaneurysm demonstrated anterior to the femoral artery that measures 15 x 8 mm. IMPRESSION:
[2019-07-27] MEDS ORDERED: NALOXONE 0.4 MG/ML 1 ML VIAL IV PRN (00:12)
[2019-07-27] MEDS ORDERED: LEVALBUTEROL TARTRATE INHALATION PRN (00:13)
[2019-07-27] MEDS ORDERED: SODIUM CHLORIDE 0.9% 1,000 ML IV SCH (00:15)
[2019-07-27] MEDS ORDERED: traMADol 50 MG TAB PO PRN (00:30)
[2019-07-27 02:24] LABS: Basophils # (A) 0.1 k/uL (0-0.2); Basophils % (A) 1 %; Eosinophils # (A) 0.1 k/uL (0-0.7); Eosinophils % (A) 0 %; HCT 40.6 % (34.0-46.0); HGB 13.2 gm/dL (11.4-16.0); Lymphocytes # (A) 2.9 k/uL (1.0-4.8); Lymphocytes % (A) 19 %; MCH 27.1 pg (25.0-35.0); MCHC 32.5 g/dL (31.0-37.0); MCV 83.5 fL (80.0-100.0); Mean Platelet Volume 7.7; Monocytes # (A) 0.6 k/uL (0-1.0); Monocytes % (A) 4 %; Neutrophils # (A) 11.6 k/uL (1.3-7.7); Neutrophils % (A) 75 %; Platelet Count 272 k/uL (150-450); RBC 4.86 m/uL (3.80-5.40); RDW 15.6 % (11.5-15.5); WBC 15.4 k/uL (3.8-10.6)
[2019-07-27 02:39] LABS: Albumin 3.8 g/dL (3.5-5.0); Calcium 9.8 mg/dL (8.4-10.2); Potassium 4.4 mmol/L (3.5-5.1); Total Bilirubin 0.5 mg/dL (0.2-1.3); Total Protein 6.4 g/dL (6.3-8.2)
[2019-07-27 02:43] LABS: Prothrombin Time 10.5 sec (9.0-12.0)
[2019-07-27 03:01] VITALS: RESP 18
[2019-07-27 03:30] LABS: Partial Thromboplastin Time 21.5 sec (22.0-30.0)
[2019-07-27 06:45] VITALS: PULSE 65; TEMP 97.1
[2019-07-27 07:45] VITALS: BP 132/59
[2019-07-27 08:21] LABS: Glucose,Whole Blood 105 mg/dL (75-99)
[2019-07-27] MEDS ORDERED: PANTOPRAZOLE 40 MG TABLET PO SCH (09:00)
[2019-07-27] MEDS ORDERED: LISINOPRIL 20 MG TAB PO SCH (09:00)
[2019-07-27] MEDS ORDERED: SPIRONOLACTONE 25 MG TAB PO SCH (09:00)
[2019-07-27] MEDS ORDERED: ASPIRIN 81 MG PO SCH (09:00)
[2019-07-27] MEDS ORDERED: metFORMIN 500 MG TAB PO SCH (09:00)
[2019-07-27] MEDS ORDERED: NICOTINE 21MG/24HR PATCH TRANSDERM SCH (09:00)
--- NOTE | 2019-07-27 09:46 | P.HPIM ---
History of Present Illness H&P Date: 07/27/19 Chief Complaint: Pseudoaneurysm This 69-year-old white female recently admitted for TAKESUBO syndrome and influenza B. She underwent cardiac catheterization 2 days ago and was found to have essentially normal coronary arteries. At home yesterday she reported some pain in the right groin. She had some bruising. She came emergency room was found to have pseudoaneurysm onto the femoral artery on Doppler ultrasound. This morning she has no complaints. She denies any chest pains compression, shortness breath no nausea vomiting. She denies any palpable mass to the right groin. Review of Systems All systems: negative Past Medical History Past Medical History: Heart Failure (TAKESUBO syndrome), COPD, Diabetes Mellitus, GERD/Reflux, Hyperlipidemia, Hypertension, Pneumonia, Thyroid Disor edmundo, Vascular Disorder Additional Past Medical History / Comment(s): NIDDM type II, bronchitis, R side caratid stenosis, osteoporosis, scoliosis, chronic pain bilateral hips/k nees/ankles and rivs, hypothyroid, History of Any Multi-Drug Resistant Organisms: None Reported Past Surgical History: No Surgical Hx Reported Additional Past Anesthesia/Blood Transfusion Reaction / Comment(s): PT HAS NEVER RECEIVED ANESTHESIA Past Psychological History: Anxiety, Panic Disorder Smoking Status: Current every day smoker Past Alcohol Use History: None Reported Past Drug Use History: None Reported - Past Family History Mother Family Medical History: Thyroid Disorder Additional Family Medical History / Comment(s): hypothyroid Father Family Medical History: Myocardial Infarction ([place]) Additional Family Medical History / Comment(s): Father of a [place] before age 50 yrs. Brother(s) Additional Family Medical History / Comment(s): Chrons Medications and Allergies Home Medications Medication Instructions Recorded Confirmed Type Levothyroxine Sodium [Synthroid] 75 mcg PO Q48H 03/23/14 07/27/19 History Levothyroxine Sodium [Synthroid] 150 mcg PO Q48H 03/23/14 07/27/19 History traMADol HCL [Ultram] 50 mg PO Q8H PRN 03/23/14 07/27/19 History Metoprolol Tartrate [Lopressor] 25 mg PO BID 09/17/15 07/27/19 History Pantoprazole Sodium 40 mg PO DAILY 11/29/15 07/27/19 History Atorvastatin [Lipitor] 40 mg PO HS 06/07/19 07/27/19 History Calcium Carbonate [Calcium] 600 mg PO DAILY 06/07/19 07/27/19 History Cyanocobalamin (Vitamin B-12) 1,000 mcg PO DAILY 06/07/19 07/27/19 History [Vitamin B-12] Fluticasone Furoate [Arnuity 1 puff INHALATION RT-DAILY 06/07/19 07/27/19 History Ellipta] L.acidoph,Paracasei, B.lactis 1 cap PO DAILY 06/07/19 07/27/19 History [Probiotic] Lisinopril [Zestril] 20 mg PO BID 06/07/19 07/27/19 History Diclofenac Sodium [Voltaren] 75 mg PO DAILY 07/21/19 07/27/19 History Levalbuterol Tartrate 2 puff INHALATION RT-QID PRN 07/21/19 07/27/19 History [Levalbuterol Tartrate 45 MCG Hfa] Nicotine 21Mg/24Hr Patch [Habitrol] 1 patch TRANSDERM DAILY #30 patch 07/25/19 07/27/19 Rx Spironolactone [Aldactone] 25 mg PO DAILY #30 tab 07/25/19 07/27/19 Rx Aspirin 325 mg PO DAILY 07/27/19 07/27/19 History metFORMIN HCL ER [Glucophage Xr] 1,000 mg PO DAILY 07/27/19 07/27/19 History Allergies Allergy/AdvReac Type Severity Reaction Status Date / Time clindamycin Allergy Rash/Hives Verified 07/26/19 22:54 Iodinated Contrast Media Allergy Rash/Hives Verified 07/26/19 22:54 adhesive tape AdvReac Severe bruises Verified 07/26/19 22:54 diphenhydramine HCl AdvReac Unknown KEEPS HER Verified 07/26/19 22:54 [From Benadryl] AWAKE. albuterol AdvReac Rapid Verified 07/26/19 22:54 Heart Rate bandaid AdvReac Severe bruise Uncoded 07/26/19 22:54 Physical Exam Vitals: Vital Signs Temp Pulse Resp BP BP Pulse Ox 07/27/19 06:44 97.1 F L 65 18 132/83 97 07/27/19 04:00 16 132/59 97 07/27/19 02:57 80 18 150/68 98 07/26/19 22:55 98 F 52 L 16 165/56 96 Intake and Output 07/26/19 07/27/19 07/27/19 22:59 06:59 14:59 Other: Weight 58.967 kg 58.967 kg GENERAL: Well-appearing, well-nourished and in no acute distress, 69-year-old white female looks stated age.. HEAD: Atraumatic, normocephalic. EYES: Pupils equal round and reactive to light, extraocular movements intact, sclera anicteric, conjunctiva are normal. ENT:nares patent, oropharynx clear without exudates. Moist mucous membranes. NECK: Normal range of motion, supple without lymphadenopathy or JVD, no thyromegaly LUNGS: Breath sounds coarse to auscultation bilaterally and equal. No wheezes rales or rhonchi. HEART: Regular rate and rhythm without murmurs, rubs or gallops.S1S2 Normal ABDOMEN: Soft, nontender, normoactive bowel sounds. No guarding, no rebound. No masses appreciated. EXTREMITIES: Normal range of motion, no pitting or edema. No clubbing or cyanosis. The right groin exam was deferred to vascular surgery NEUROLOGICAL: Cranial nerves II through XII grossly intact. Normal speech, normal gait. PSYCH: Normal mood, normal affect. SKIN: Warm, Dry, normal turgor, no rashes or lesions noted. Results CBC & Chem 7: 07/27/19 02:06 07/27/19 02:06 Labs: Abnormal Lab Results - Last 24 Hours (Table) 07/27/19 07/27/19 07/27/19 Range/Units 02:06 02:06 02:06 WBC 15.4 H (3.8-10.6) k/uL RDW 15.6 H (11.5-15.5) % Neutrophils # 11.6 H (1.3-7.7) k/uL APTT 21.5 L (22.0-30.0) sec Chloride 108 H (98-107) mmol/L BUN 26 H (7-17) mg/dL Creatinine 1.07 H (0.52-1.04) mg/dL POC Glucose (mg/dL) (75-99) mg/dL 07/27/19 Range/Units 08:20 WBC (3.8-10.6) k/uL RDW (11.5-15.5) % Neutrophils # (1.3-7.7) k/uL APTT (22.0-30.0) sec Chloride (98-107) mmol/L BUN (7-17) mg/dL Creatinine (0.52-1.04) mg/dL POC Glucose (mg/dL) 105 H (75-99) mg/dL Thrombosis Risk Factor Assmnt - DVT/VTE Prophylaxis DVT/VTE Prophylaxis: Low risk, early ambulation encouraged - Choose All That Apply Each Risk Factor Represents 2 Points: Age 61-74 years Thrombosis Risk Factor Assessment Total Risk Factor Score: 2 Thrombosis Risk Factor Assessment Level: Low Risk Assessment and Plan (1) COPD (chronic obstructive pulmonary disease) Current Visit: Yes Status: Acute Code(s): J44.9 - CHRONIC OBSTRUCTIVE PULMONARY DISEASE, UNSPECIFIED SNOMED Code(s): 71181689 (2) Diabetes Current Visit: Yes Status: Acute Code(s): E11.9 - TYPE 2 DIABETES MELLITUS WITHOUT COMPLICATIONS SNOMED Code(s): 55345978 (3) Congestive heart failure with cardiomyopathy Current Visit: Yes Status: Acute Code(s): I50.9 - HEART FAILURE, UNSPECIFIED; I42.9 - CARDIOMYOPATHY, UNSPECIFIED SNOMED Code(s): 04284587 (4) Pseudoaneurysm following procedure Current Visit: Yes Status: Acute Code(s): T81.718A - COMPLICATION OF ARTERY FOLLOWING A PROCEDURE, NEC, INIT; I72.9 - ANEURYSM OF UNSPECIFIED SITE SNOMED Code(s): 34447361 (5) Elevated troponin Current Visit: No Status: Acute Code(s): R79.89 - OTHER SPECIFIED ABNORMAL FINDINGS OF BLOOD CHEMISTRY SNOMED Code(s): 961678169 Plan: She'll need observation be seen by vascular surgery and cardiology. Most likely she'll go home today
--- NOTE | 2019-07-27 09:50 | P.DS ---
Providers Date of admission: 07/27/19 00:14 Expected date of discharge: 07/27/19 Attending physician: Zach Ramirez Consults: 07/27/19 00:13 Consult Physician Urgent Consulting Provider: Leo Sims Consult Reason/Comments: post cath pseudoaneurysm Do you want consulting provider notified?: Already Contacted 07/27/19 07:49 Consult Physician Routine Consulting Provider: Moose Montes De Oca Consult Reason/Comments: pseudoaneurysm Do you want consulting provider notified?: Yes Primary care physician: Zach Ramirez - Discharge Diagnosis(es) (1) COPD (chronic obstructive pulmonary disease) Current Visit: Yes Status: Acute (2) Diabetes Current Visit: Yes Status: Acute (3) Congestive heart failure with cardiomyopathy Current Visit: Yes Status: Acute (4) Pseudoaneurysm following procedure Current Visit: Yes Status: Acute (5) Elevated troponin Current Visit: No Status: Acute Hospital Course: This 69-year-old white female recently admitted for TAKESUBO syndrome and influenza B. She underwent cardiac catheterization 2 days ago and was found to have essentially normal coronary arteries. At home yesterday she reported some pain in the right groin. She had some bruising. She came emergency room was found to have pseudoaneurysm onto the femoral artery on Doppler ultrasound. This morning she has no complaints. She denies any chest pains compression, shortness breath no nausea vomiting. She denies any palpable mass to the right groin. Patient was seen by cardiology and Dr. Montes De Oca of vascular surgery. They're planning on repeating an ultrasound tomorrow and Dr. Montes De Oca's office. The patient go home and relax with no strenuous activity. She will follow-up as directed. Patient has no complaints or issues other than the right thigh pain for her hospital observation stay. Patient Condition at Discharge: Stable Plan - Discharge Summary Discharge Rx Participant: No New Discharge Prescriptions: Continue traMADol HCL [Ultram] 50 mg PO Q8H PRN PRN Reason: Pain Levothyroxine Sodium [Synthroid] 150 mcg PO Q48H Levothyroxine Sodium [Synthroid] 75 mcg PO Q48H Metoprolol Tartrate [Lopressor] 25 mg PO BID Pantoprazole Sodium 40 mg PO DAILY Lisinopril [Zestril] 20 mg PO BID L.acidoph,Paracasei, B.lactis [Probiotic] 1 cap PO DAILY Fluticasone Furoate [Arnuity Ellipta] 1 puff INHALATION RT-DAILY Calcium Carbonate [Calcium] 600 mg PO DAILY Atorvastatin [Lipitor] 40 mg PO HS Cyanocobalamin (Vitamin B-12) [Vitamin B-12] 1,000 mcg PO DAILY Diclofenac Sodium [Voltaren] 75 mg PO DAILY Levalbuterol Tartrate [Levalbuterol Tartrate 45 MCG Hfa] 2 puff INHALATION RT-QID PRN PRN Reason: Shortness Of Breath Or Wheezing Spironolactone [Aldactone] 25 mg PO DAILY #30 tab Nicotine 21Mg/24Hr Patch [Habitrol] 1 patch TRANSDERM DAILY #30 patch metFORMIN HCL ER [Glucophage Xr] 1,000 mg PO DAILY Aspirin 325 mg PO DAILY Discharge Medication List Levothyroxine Sodium [Synthroid] 75 mcg PO Q48H 03/23/14 [History] Levothyroxine Sodium [Synthroid] 150 mcg PO Q48H 03/23/14 [History] traMADol HCL [Ultram] 50 mg PO Q8H PRN 03/23/14 [History] Metoprolol Tartrate [Lopressor] 25 mg PO BID 09/17/15 [History] Pantoprazole Sodium 40 mg PO DAILY 11/29/15 [History] Atorvastatin [Lipitor] 40 mg PO HS 06/07/19 [History] Calcium Carbonate [Calcium] 600 mg PO DAILY 06/07/19 [History] Cyanocobalamin (Vitamin B-12) [Vitamin B-12] 1,000 mcg PO DAILY 06/07/19 [History] Fluticasone Furoate [Arnuity Ellipta] 1 puff INHALATION RT-DAILY 06/07/19 [History] L.acidoph,Paracasei, B.lactis [Probiotic] 1 cap PO DAILY 06/07/19 [History] Lisinopril [Zestril] 20 mg PO BID 06/07/19 [History] Diclofenac Sodium [Voltaren] 75 mg PO DAILY 07/21/19 [History] Levalbuterol Tartrate [Levalbuterol Tartrate 45 MCG Hfa] 2 puff INHALATION RT- QID PRN 07/21/19 [History] Nicotine 21Mg/24Hr Patch [Habitrol] 1 patch TRANSDERM DAILY #30 patch 07/25/19 [Rx] Spironolactone [Aldactone] 25 mg PO DAILY #30 tab 07/25/19 [Rx] Aspirin 325 mg PO DAILY 07/27/19 [History] metFORMIN HCL ER [Glucophage Xr] 1,000 mg PO DAILY 07/27/19 [History] Follow up Appointment(s)/Referral(s): Zach Ramirez MD [Primary Care Provider] - 1 Week Moose Montes De Oca MD [STAFF PHYSICIAN] - 07/28/19 11:00 am Leo Sims MD [STAFF PHYSICIAN] - 1 Week Discharge Disposition: HOME SELF-CARE
--- NOTE | 2019-07-27 10:54 | CONS ---
ANGIE Ochoa is a 69-year-old lady with recent history of influenza infection with cardiomyopathy and severe LV systolic dysfunction, who underwent a cardiac catheterization to rule out significant CAD. Her cardiac catheterization did not reveal significant obstructive CAD and she did not require any intervention. She had the procedure done on Sunday morning, went home Sunday evening. She came in last night complaining of pain and discomfort in the right groin. She states that she was doing fine after she went home, ambulated without any issues and initially felt a pulsatile discomfort in the groin and then the pain got worse. She came to the ER where she underwent a vascular duplex that showed a possible pseudoaneurysm with very minimal flow into the into the pseudoaneurysm. It measures 1.5 cm x 0.8 cm. There is no AV fistula and it says there is no fluid collection either. This morning patient states that the right groin discomfort has improved. On my exam, I see a small soft hematoma. There are no pulsatile masses and I do not hear any bruit and I am unsure if the patient truly has a pseudoaneurysm or has only a small hematoma and very likely this will close on its own given how little flow there is into the pseudoaneurysm. I will ask the vascular surgeon for their opinion and decide on whether to close this small pseudoaneurysm or her go home and follow her in the outpatient setting. PAST MEDICAL HISTORY: Past medical history significant for recent flu-like illness, diabetes, hypothyroidism. MEDICATIONS: Medications at home include Glucophage, Voltaren, Lopressor Zestril, Synthroid, Lipitor. ALLERGIES: MULTIPLE ALLERGIES INCLUDING IODINE, BENADRYL, ALBUTEROL, AND CLINDAMYCIN. FAMILY HISTORY: Negative for premature coronary artery disease. SOCIAL HISTORY: Negative for smoking, EtOH abuse or drug abuse. REVIEW OF SYSTEMS: HEENT is unremarkable. Cardiac as described above. Respiratory as described above. GI negative. Genitourinary: Negative. ALLERGY/IMMUNOLOGY: None. SKIN negative. MUSCULOSKELETAL significant for arthritis. PSYCHOSOCIAL negative. ENDOCRINE: Negative. CONSTITUTIONAL: Negative. ONCOLOGICAL negative. HAT LINER negative. Rest of the system review is not relevant. EXAM: Comfortable at rest. Vital signs are stable. Afebrile. There is no jugular venous distention. Carotid upstroke is normal. There is no bruit. Chest exam reveals good air entry bilaterally. Heart exam reveals first and second heart sounds. No gallop. No murmur. Abdomen is soft, nontender. Exam of extremities did not reveal any edema. Peripheral pulses are felt. Right groin is soft. There is a small hematoma felt with mild tenderness. I do not see much ecchymosis and there are no pulsatile masses and no bruit. ASSESSMENT: Status post catheterization with right groin discomfort and possible pseudoaneurysm. I am going to have a vascular surgeon evaluate the patient and decide on further course of action. MMODL / IJN: [id number] /
--- NOTE | 2019-07-27 13:36 | CONS ---
CONSULTATION 69-year-old white female admitted to [facility]. The patient had a heart catheterization done on Sunday. She came for rule out pseudoaneurysm of the right groin. The patient had an ultrasound which showed 1.5 x 0.8, possible pseudoaneurysm. MEDICAL HISTORY: History of hypertension, diabetes. Procedure: Patient had a heart catheterization done. PHYSICAL EXAMINATION: Patient was seen in her room, lying comfortably in bed. NECK: Supple. Trachea central. Chest is auscultation. ABDOMEN: Soft femorals are palpable bilaterally. No evidence of any tenderness. No bruit appreciated. Ultrasound reviewed. There is a possibility of the 1.5 x 0.2 cm pseudoaneurysm. The patient is very comfortable and nontender. No bruit appreciated. Discussed with the patient and Dr. Sims. We will watch her very closely. We will repeat ultrasound tomorrow. The patient is going home today. Advised not to lift any heavy things. Patient is stable from a vascular point of view. Thank you for the consultation. MMODL / IJN: [id number] /
[2019-07-27] MEDS ORDERED: ATORVASTATIN 40 MG TAB PO SCH (21:00)
== END 2019-07-27 10:56 | disposition home or self-care (01) ==
LOC: EC 22:53 → 1SOBS 07-27 00:14
PROVIDERS: ADMIT Family Medicine; ATTEND Family Medicine
DX: T81.718A Complication of other artery following a procedure, not elsewhere classified, initial encounter (principal); I72.4 Aneurysm of artery of lower extremity; Y84.0 Cardiac catheterization as the cause of abnormal reaction of the patient, or of later complication, without mention of misadventure at the time of the procedure; E03.9 Hypothyroidism, unspecified; E11.9 Type 2 diabetes mellitus without complications; E78.5 Hyperlipidemia, unspecified; F17.200 Nicotine dependence, unspecified, uncomplicated; F41.0 Panic disorder [episodic paroxysmal anxiety]; Z86.19 Personal history of other infectious and parasitic diseases; M41.9 Scoliosis, unspecified; M81.0 Age-related osteoporosis without current pathological fracture; Z79.82 Long term (current) use of aspirin; Z79.84 Long term (current) use of oral hypoglycemic drugs; Z79.890 Hormone replacement therapy; Z79.899 Other long term (current) drug therapy; Z82.49 Family history of ischemic heart disease and other diseases of the circulatory system; Z88.1 Allergy status to other antibiotic agents; Z88.8 Allergy status to other drugs, medicaments and biological substances; Z87.01 Personal history of pneumonia (recurrent); M25.552 Pain in left hip; M25.551 Pain in right hip; M25.562 Pain in left knee; M25.561 Pain in right knee; M25.572 Pain in left ankle and joints of left foot; M25.571 Pain in right ankle and joints of right foot; G89.29 Other chronic pain; Z91.041 Radiographic dye allergy status; J44.9 Chronic obstructive pulmonary disease, unspecified; Z91.048 Other nonmedicinal substance allergy status; I51.81 Takotsubo syndrome
CPT/HCPCS: 99285; 80053; 85025; 85610; 85730; 93975; 93926; G0378; S4990

== ENCOUNTER → 2019-07-30 | Outpatient (CLI) | payer MEDICARE, OTHER ==
[2019-07-30 14:09] LABS: Basophils # (A) 0.1 k/uL (0-0.2); Basophils % (A) 1 %; Eosinophils # (A) 0.1 k/uL (0-0.7); Eosinophils % (A) 1 %; HCT 37.5 % (34.0-46.0); Lymphocytes # (A) 2.7 k/uL (1.0-4.8); Lymphocytes % (A) 21 %; MCH 27.6 pg (25.0-35.0); MCV 86.5 fL (80.0-100.0); Mean Platelet Volume 7.8; Monocytes # (A) 0.5 k/uL (0-1.0); Monocytes % (A) 4 %; Neutrophils # (A) 9.4 k/uL (1.3-7.7); Neutrophils % (A) 73 %; Platelet Count 281 k/uL (150-450); RBC 4.33 m/uL (3.80-5.40); RDW 15.7 % (11.5-15.5); WBC 12.9 k/uL (3.8-10.6)
[2019-07-30 18:34] LABS: African American GFR (CKD) 59.3 (60.0-200.0); Anion Gap 6.7 mmol/L (4.00-12.00); Calcium 9.3 mg/dL (8.7-10.3); Carbon Dioxide 28.3 mmol/L (21.6-31.8); Non-African American GFR(CKD) 51.2 (60.0-200.0); Potassium 4.4 mmol/L (3.5-5.5)
== END | disposition home or self-care (01) ==
LOC: LABWHC1 13:25
PROVIDERS: ATTEND Nurse Practitioner
DX: J10.1 Influenza due to other identified influenza virus with other respiratory manifestations (principal); I50.23 Acute on chronic systolic (congestive) heart failure; N17.9 Acute kidney failure, unspecified
CPT/HCPCS: 36415; 80048; 85025

== ENCOUNTER → 2020-01-13 | Outpatient (CLI) | payer MEDICARE, OTHER ==
[2020-01-13 11:24] LABS: Anisocytosis Slight; Basophils # (A) 0.1 k/uL (0-0.2); Basophils % (A) 1 %; Eosinophils # (A) 0.1 k/uL (0-0.7); Eosinophils % (A) 2 %; HCT 39.5 % (34.0-46.0); HGB 12.6 gm/dL (11.4-16.0); Hypochromasia Moderate; Lymphocytes # (A) 2.4 k/uL (1.0-4.8); Lymphocytes % (A) 25 %; MCH 26.2 pg (25.0-35.0); MCV 81.9 fL (80.0-100.0); Mean Platelet Volume 7.6; Monocytes # (A) 0.6 k/uL (0-1.0); Monocytes % (A) 6 %; Neutrophils # (A) 6.3 k/uL (1.3-7.7); Neutrophils % (A) 65 %; Platelet Count 263 k/uL (150-450); RBC 4.82 m/uL (3.80-5.40); RDW 17.6 % (11.5-15.5); WBC 9.7 k/uL (3.8-10.6)
[2020-01-13 16:37] LABS: African American GFR (CKD) 75.6 (60.0-200.0); Albumin 4.3 g/dL (3.80-4.90); Albumin/Globulin Ratio 2.26 (1.60-3.17); Anion Gap 7.1 mmol/L (4.00-12.00); Calcium 9.8 mg/dL (8.7-10.3); Carbon Dioxide 22.9 mmol/L (21.6-31.8); Chol/HDL Ratio 2.17; Globulin 1.9 g/dL (1.6-3.3); LDL Cholesterol,Calculated 46.2 mg/dL (0.0-131.0); Non-African American GFR(CKD) 65.2 (60.0-200.0); Potassium 4.7 mmol/L (3.5-5.5); Total Bilirubin 0.6 mg/dL (0.2-1.2); Total Protein 6.2 g/dL (6.2-8.2); VLDL Calculation 15.8 mg/dL (5.00-40.00)
[2020-01-13 16:44] LABS: T4, Free (Free Thyroxine) 1.6 ng/dL (0.80-1.80)
[2020-01-13 19:05] LABS: Hemoglobin A1C 6.5 % (4.0-6.0)
== END | disposition home or self-care (01) ==
LOC: LABWHC1 09:35
PROVIDERS: ATTEND Family Medicine
DX: Z00.00 Encounter for general adult medical examination without abnormal findings (principal); E11.9 Type 2 diabetes mellitus without complications
CPT/HCPCS: 36415; 80053; 80061; 83036; 84439; 84443; 85025

== ENCOUNTER → 2020-02-09 | Outpatient (CLI) | payer MEDICARE, OTHER ==
[2020-02-10 15:05] LABS: T4, Free (Free Thyroxine) 1.4 ng/dL (0.80-1.80)
== END | disposition home or self-care (01) ==
LOC: LABWHC1 09:28
PROVIDERS: ATTEND Family Medicine
DX: E03.9 Hypothyroidism, unspecified (principal); R53.83 Other fatigue
CPT/HCPCS: 36415; 84439; 84443; 84481

== ENCOUNTER → 2020-05-11 | Outpatient (CLI) | payer MEDICARE, OTHER ==
[2020-05-11 18:56] LABS: T4, Free (Free Thyroxine) 1.4 ng/dL (0.80-1.80)
== END | disposition home or self-care (01) ==
LOC: LABWHC1 10:50
PROVIDERS: ATTEND Nurse Practitioner Family
DX: E03.9 Hypothyroidism, unspecified (principal)
CPT/HCPCS: 36415; 84439; 84443; 84481

== ENCOUNTER → 2020-09-07 | Outpatient (CLI) | payer MEDICARE, OTHER ==
[2020-09-07 20:30] LABS: Hemoglobin A1C 5.9 % (4.0-6.0)
[2020-09-07 20:54] LABS: T4, Free (Free Thyroxine) 1.6 ng/dL (0.80-1.80)
== END | disposition home or self-care (01) ==
LOC: LABWHC1 12:15
PROVIDERS: ATTEND Family Medicine
DX: E11.9 Type 2 diabetes mellitus without complications (principal); E03.9 Hypothyroidism, unspecified
CPT/HCPCS: 36415; 83036; 84439; 84443; 84481

== ENCOUNTER → 2020-09-24 | Outpatient (CLI) | payer MEDICARE, OTHER ==
--- NOTE | 2020-09-25 12:35 | CTL ---
EXAMINATION TYPE: CT Low Dose Lung DATE OF EXAM ORDERED: 09/24/2020 HISTORY: Personal history tobacco use. Lung cancer screening CT DLP: 79.[address] CTDI: 2.4 mGy Automated exposure control for dose reduction was used. SCREENING VISIT: Initial COMPARISON: None TECHNIQUE: Low dose computed tomography scan was performed through the chest at 1 mm thick sections a nd reconstructed images in the coronal plane at [address] DIAGNOSTIC QUALITY: Satisfactory FINDINGS: LUNG NODULES: Present, detailed below: There is a 0.3 cm peripheral nodule within the left mid lung. Series 4 image 96. There is an area of thickening or pneumonitis changes in the periphery of the lingula measuring 1.0 c m. Series 4 image 148. Short-term follow-up is recommended. Some additional thickening is more inferi or measuring 0.9 cm within the lingula. LUNGS: COPD: Severity: None Fibrosis: Severity: None Lymph nodes: None Other findings: None RIGHT PLEURAL SPACE: Effusion: None Calcification: None Thickening: None Pneumothorax: None LEFT PLEURAL SPACE: Effusion: None Calcification: None Thickening: None Pneumothorax: None HEART: Heart Size: Normal Coronary calcification: Mild Pericardial effusion: None OTHER FINDINGS: Upper abdomen: Normal Bony thorax: Normal Supraclavicular region: Normal Other: Ascending thoracic aorta at the level the main pulmonary artery measures 3.4 cm. The main pul monary artery at the bifurcation measures 2.9 cm. IMPRESSION: 1. Nonspecific thickening measuring up to 1.0 cm. This is nonspecific and could be related to atelect asis or pneumonitis. Underlying mass is not excluded. PET/CT is recommended for additional evaluation . FOLLOW UP CT CHEST RECOMMENDATION: Yes, PET/CT CT LUNG RAD: Lung-Rad 4A Suspicious
== END | disposition home or self-care (01) ==
LOC: RADCTMAIN 15:39
PROVIDERS: ATTEND Family Medicine
DX: Z87.891 Personal history of nicotine dependence (principal)
CPT/HCPCS: 71271

== ENCOUNTER → 2020-11-12 | Outpatient (CLI) | payer MEDICARE, OTHER ==
--- NOTE | 2020-11-17 12:50 | MM ---
Reason for exam: screening (asymptomatic). Last mammogram was performed 2 years and 11 months ago. History: Patient is postmenopausal. Took unspecified hormones for 2 years beginning at age 55. Physical Findings: A clinical breast exam by your physician is recommended on an annual basis and results should be correlated with mammographic findings. MG 3D Screening Mammo W/Cad Bilateral CC and MLO view(s) were taken. Prior study comparison: December 11, 2017, bilateral MG screening mammo w CAD. November 24, 2015, bilateral MG screening mammo w CAD. There are scattered fibroglandular densities. ASSESSMENT: Benign, BI-RAD 2 RECOMMENDATION: Routine screening mammogram of both breasts in 1 year.
== END | disposition home or self-care (01) ==
LOC: RADMAMWWP 13:51
PROVIDERS: ATTEND Family Medicine
DX: Z12.31 Encounter for screening mammogram for malignant neoplasm of breast (principal); Z78.0 Asymptomatic menopausal state
CPT/HCPCS: 77063; 77067

== ENCOUNTER → 2020-11-26 | Outpatient (CLI) | payer MEDICARE, OTHER ==
--- NOTE | 2020-11-26 16:28 | US ---
EXAMINATION TYPE: US carotid duplex BILAT DATE OF EXAM: 11/26/2020 COMPARISON: 07/03/2019 CLINICAL HISTORY: 70-year-old female J44.9 COPD. TECHNIQUE: Carotid duplex ultrasound examination. Indirect Doppler criteria is utilized. FINDINGS: EXAM MEASUREMENTS: RIGHT: Peak Systolic Velocity (PSV) cm/sec ----- Right CCA: 37.4 ----- Right ICA: 307.0 ----- Right ECA: 99.5 ICA/CCA ratio: 8.2 RIGHT: End Diastole cm/sec ----- Right CCA: 9.6 ----- Right ICA: 71.4 ----- Right ECA: 12.8 LEFT: Peak Systolic Velocity (PSV) cm/sec ----- Left CCA: 67.0 ----- Left ICA: 81.1 ----- Left ECA: 74.7 ICA/CCA ratio: 1.2 LEFT: End Diastole cm/sec ----- Left CCA: 20.7 ----- Left ICA: 26.8 ----- Left ECA: 17.2 VERTEBRALS (direction of flow): Right Vertebral: Antegrade Left Vertebral: Antegrade Rhythm: Normal Dental Hygienist notes: Elevated right ICA velocities with significant stenosis. IMPRESSION: Measurements indicate a severe, greater than 70% stenosis right ICA. Criteria for Assigning % of Stenosis / Diameter reduction (Estimation based on the indirect measurements of the internal carotid artery velocities (ICA PSV). 1. Normal (no stenosis)=ICA PSV < 125 cm/s: ratio < 2.0: ICA EDV<40 cm/s. 2. Less than 50% stenosis=ICA PSV < 125 cm/s: ratio < 2.0: ICA EDV<40 cm/s. 3. 50 to 69% stenosis=ICA PSV of 125 to 230 cm/s: ration 2.0 ? 4.0: ICA EDV 40-100 cm/s. 4. Greater than 70% stenosis to near occlusion= ICA PSV > 230 cm/s: ratio > 4.0: ICA EDV > 100 cm/s. 5. Near occlusion= ICA PSV velocities may be low or undetectable: variable ratio and ICA EDV. 6. Total occlusion=unable to detect flow.
== END | disposition home or self-care (01) ==
LOC: RADUSWWP 10:54
PROVIDERS: ATTEND Family Medicine
DX: I65.21 Occlusion and stenosis of right carotid artery (principal)
CPT/HCPCS: 93880

== ENCOUNTER → 2021-01-24 | Outpatient (CLI) | payer MEDICARE, OTHER ==
[2021-01-24 15:00] LABS: Basophils # (A) 0.04 X 10*3/uL (0.00-0.10); Basophils % (A) 0.6 %; Eosinophils # (A) 0.19 X 10*3/uL (0.04-0.35); Eosinophils % (A) 2.7 %; HCT 40.2 % (37.2-46.3); HGB 12.8 g/dL (12.0-15.0); Lymphocytes % (A) 32.5 %; MCHC 31.8 g/dL (32.0-37.0); Mean Platelet Volume 9.6 fL (9.5-12.2); Monocytes # (A) 0.58 X 10*3/uL (0.20-1.00); Monocytes % (A) 8.2 %; Neutrophils # (A) 3.94 X 10*3/uL (1.80-7.70); Neutrophils % (A) 55.6 %; Platelet Count 253 X 10*3/uL (140-440); RBC 4.57 X 10*6/uL (4.10-5.20); RDW 15.9 % (11.5-14.5); WBC 7.08 X 10*3/uL (4.50-10.00)
[2021-01-24 16:23] LABS: African American GFR (CKD) 75.1 (60.0-200.0); Albumin 4.1 g/dL (3.80-4.90); Albumin/Globulin Ratio 1.78 (1.60-3.17); Anion Gap 6.8 mmol/L (4.00-12.00); Calcium 9.7 mg/dL (8.7-10.3); Carbon Dioxide 26.2 mmol/L (21.6-31.8); Chol/HDL Ratio 2.02; Globulin 2.3 g/dL (1.6-3.3); LDL Cholesterol,Calculated 53.4 mg/dL (0.0-131.0); Non-African American GFR(CKD) 64.8 (60.0-200.0); Potassium 4.4 mmol/L (3.5-5.5); Total Bilirubin 0.3 mg/dL (0.2-1.2); Total Protein 6.4 g/dL (6.2-8.2); VLDL Calculation 13.6 mg/dL (5.00-40.00)
== END | disposition home or self-care (01) ==
LOC: LABWHC1 09:39
PROVIDERS: ATTEND Internal Medicine Cardiovascular Disease
DX: Z00.00 Encounter for general adult medical examination without abnormal findings (principal); E03.9 Hypothyroidism, unspecified; E78.5 Hyperlipidemia, unspecified; E78.2 Mixed hyperlipidemia; K21.9 Gastro-esophageal reflux disease without esophagitis; J44.9 Chronic obstructive pulmonary disease, unspecified; E11.9 Type 2 diabetes mellitus without complications; I10 Essential (primary) hypertension; Z79.899 Other long term (current) drug therapy
CPT/HCPCS: 36415; 80053; 80061; 84443; 85025

== ENCOUNTER → 2021-02-15 | Outpatient (CLI) | payer MEDICARE, OTHER ==
--- NOTE | 2021-02-16 11:25 | CT ---
EXAMINATION TYPE: CT chest w con DATE OF EXAM: 02/15/2021 COMPARISON: 06/08/2016, 09/24/2020 HISTORY: Lung nodule, pt not reporting any issues CT DLP: 368 mGycm, Automated exposure control for dose reduction was used. CONTRAST: Performed injected with 100 mL of Isovue 300. TECHNIQUE: Axial images were obtained at 5 mm thick sections. Reconstructed images are reviewed on [employer] computer in the coronal plane. FINDINGS: Portion of the thyroid visualized is normal. No suspicious lung nodules or focal infiltrates are present. Previously 0.3 cm nodule within the left mid lung is not identified on this exam. Emphysematous changes are present. There is some thickening of the major fissure remains at the left lung base, transverse dimension remains 0.9 cm. No enlarged mediastinal or hilar adenopathy is evident. The ascending aorta diameter at the level o f the main pulmonary artery is 2.9 cm. The main pulmonary artery diameter at the bifurcation is 2.[address] sections are obtained through the upper abdomen. Abdomen is essentially unremarkable. IMPRESSIONS: 1. Some thickening of the major fissure near the left lung base is nonspecific. Atelectasis or fluid and mass are within the differential. Follow-up exam in 6 months is recommended. 2. Emphysematous changes. 3. Suspicious nodules not otherwise identified. Previous nodule on low-dose CT chest not identified.
== END | disposition home or self-care (01) ==
LOC: RADCTMAIN 15:57
PROVIDERS: ATTEND Internal Medicine
DX: J43.9 Emphysema, unspecified (principal)
CPT/HCPCS: 82565; 84520; 71260; 36415; Q9967

== ENCOUNTER → 2021-06-07 | Outpatient (CLI) | payer MEDICARE, OTHER | END | disposition home or self-care (01) | LOC: RADBDWWP 16:42 | PROVIDERS: ATTEND Family Medicine | DX: Z53.9 Procedure and treatment not carried out, unspecified reason (principal) ==

== ENCOUNTER 2021-11-20 16:08 | Emergency (ER) | payer MEDICARE, OTHER ==
[2021-11-20] MEDS ORDERED: KETOROLAC 15 MG/ML 1 ML VIAL IVP STA (16:44)
--- NOTE | 2021-11-20 16:47 | ED ---
Chest Pain HPI - General Chief Complaint: Chest Pain Stated Complaint: L side rib pain/possible pulled muscle Time Seen by Provider: 11/20/21 16:28 Source: patient, RN notes reviewed Mode of arrival: ambulatory Limitations: no limitations - History of Present Illness Initial Comments: 71-year-old female with a history of COPD CHF diabetes hypertension thyroid disorder who states that she was pulling weeds yesterday and felt a pop in the left anterolateral chest wall is had sharp pains in the same area since that time. He gets worse with certain movements and deep breathing well for/10 severity at rest gets this high as 8.5/10 with movement and deep breathing. No nausea vomiting fevers chills sweats cough or other symptoms reported. She does deny palpitations. MD Complaint: chest pain - Related Data Home Medications Medication Instructions Recorded Confirmed Levothyroxine Sodium [Synthroid] 75 mcg PO Q48H 03/23/14 07/27/19 Levothyroxine Sodium [Synthroid] 150 mcg PO Q48H 03/23/14 07/27/19 traMADol HCL [Ultram] 50 mg PO Q8H PRN 03/23/14 07/27/19 Metoprolol Tartrate [Lopressor] 25 mg PO BID 09/17/15 07/27/19 Pantoprazole Sodium 40 mg PO DAILY 11/29/15 07/27/19 Atorvastatin [Lipitor] 40 mg PO HS 06/07/19 07/27/19 Calcium Carbonate [Calcium] 600 mg PO DAILY 06/07/19 07/27/19 Cyanocobalamin (Vitamin B-12) 1,000 mcg PO DAILY 06/07/19 07/27/19 [Vitamin B-12] Fluticasone Furoate [Arnuity 1 puff INHALATION RT-DAILY 06/07/19 07/27/19 Ellipta] L.acidoph,Paracasei, B.lactis 1 cap PO DAILY 06/07/19 07/27/19 [Probiotic] lisinopriL [Zestril] 20 mg PO BID 06/07/19 07/27/19 Diclofenac Sodium [Voltaren] 75 mg PO DAILY 07/21/19 07/27/19 Levalbuterol Tartrate 2 puff INHALATION RT-QID PRN 07/21/19 07/27/19 [Levalbuterol Tartrate 45 MCG Hfa] Aspirin 325 mg PO DAILY 07/27/19 07/27/19 metFORMIN HCL ER [Glucophage XR] 1,000 mg PO DAILY 07/27/19 07/27/19 Previous Rx's Medication Instructions Recorded Nicotine 21Mg/24Hr Patch [Habitrol] 1 patch TRANSDERM DAILY #30 patch 07/25/19 Spironolactone [Aldactone] 25 mg PO DAILY #30 tab 07/25/19 Ketorolac [Toradol] 10 mg PO Q6HR #20 tab 11/20/21 Allergies Allergy/AdvReac Type Severity Reaction Status Date / Time clindamycin Allergy Rash/Hives Verified 11/20/21 16:26 Iodinated Contrast Media Allergy Rash/Hives Verified 11/20/21 16:26 adhesive tape AdvReac Severe bruises Verified 11/20/21 16:26 diphenhydramine HCl AdvReac Unknown KEEPS HER Verified 11/20/21 16:26 [From Benadryl] AWAKE. albuterol AdvReac Rapid Verified 11/20/21 16:26 Heart Rate bandaid AdvReac Severe bruise Uncoded 11/20/21 16:26 Review of Systems ROS Statement: Those systems with pertinent positive or pertinent negative responses have been documented in the HPI. ROS Other: All systems not noted in ROS Statement are negative. EKG Findings - EKG Results: EKG: interpreted by KATHIA (Sinus rhythm with PVCs rate 94. Interval 164 QRS 9070 QT and QTC 356/407 this is compared to an EKG dated 07/21/19) Past Medical History Past Medical History: Heart Failure, COPD, Diabetes Mellitus, GERD/Reflux, Hyperlipidemia, Hypertension, Pneumonia, Thyroid Disorder, Vascular Disorder Additional Past Medical History / Comment(s): NIDDM type II, bronchitis, R side caratid stenosis, osteoporosis, scoliosis, chronic pain bilateral hips/knees/ankles and rivs, hypothyroid, History of Any Multi-Drug Resistant Organisms: None Reported Past Surgical History: No Surgical Hx Reported Additional Past Anesthesia/Blood Transfusion Reaction / Comment(s): PT HAS NEVER RECEIVED ANESTHESIA Past Psychological History: Anxiety, Panic Disorder Past Alcohol Use History: None Reported Past Drug Use History: None Reported - Past Family History Mother Family Medical History: Thyroid Disorder Additional Family Medical History / Comment(s): hypothyroid Father Family Medical History: Myocardial Infarction (NE) Additional Family Medical History / Comment(s): Father of a NE before age 50 yrs. Brother(s) Additional Family Medical History / Comment(s): Chrons General Exam - General Exam Comments Initial Comments: This is a well-developed well-nourished awake alert oriented 4 female Limitations: no limitations General appearance: alert, anxious Head exam: Present: atraumatic, normocephalic, normal inspection Eye exam: Present: normal appearance, PERRL, EOMI. Absent: scleral icterus, conjunctival injection, periorbital swelling ENT exam: Present: normal exam, mucous membranes moist Neck exam: Present: normal inspection, full ROM, other (No stridor JVD or bruits). Absent: tenderness, meningismus, lymphadenopathy Respiratory exam: Present: normal lung sounds bilaterally, chest wall tenderness (Tennis palpation over left anterior lateral chest wall on the left costal chondral margin no overt step-off or crepitation.). Absent: respiratory distress, wheezes, rales, rhonchi, stridor Cardiovascular Exam: Present: normal rhythm, bradycardia, normal heart sounds. Absent: systolic murmur, diastolic murmur, rubs, gallop, clicks GI/Abdominal exam: Present: soft, normal bowel sounds. Absent: distended, tenderness, guarding, rebound, rigid Extremities exam: Present: normal inspection, full ROM, normal capillary refill. Absent: tenderness, pedal edema, joint swelling, calf tenderness Back exam: Present: normal inspection Neurological exam: Present: alert, oriented X3, CN II-XII intact Psychiatric exam: Present: normal affect, normal mood Skin exam: Present: warm, dry, intact, normal color. Absent: rash Course Vital Signs 11/20/21 11/20/21 11/20/21 16:22 16:26 17:26 Temperature 98.2 F 97.9 F 98.0 F Pulse Rate 46 L 81 79 Respiratory 16 20 20 Rate Blood Pressure 184/79 155/81 151/83 O2 Sat by Pulse 95 97 96 Oximetry Chest Pain MDM - MDM Patient is feeling much improved after IV Toradol. I did discuss the findings with her the presentation is consistent with costochondral strain. Patient will be discharged on appropriate anti-inflammatories. Imaging reviewed no acute findings. Disposition Clinical Impression: Costochondritis, Chest wall syndrome Disposition: HOME SELF-CARE Condition: Good Instructions (If sedation given, give patient instructions): Costochondritis (ED) Prescriptions: Ketorolac [Toradol] 10 mg PO Q6HR #20 tab Is patient prescribed a controlled substance at d/c from ED?: No Referrals: Zach Ramirez MD [Primary Care Provider] - 1-2 days Decision Date: 11/20/21 Decision Time: 18:26
[2021-11-20 17:39] LABS: Basophils % (A) 0 %; Eosinophils # (A) 0.1 k/uL (0-0.7); Eosinophils % (A) 1 %; HCT 43.8 % (34.0-46.0); HGB 14.2 gm/dL (11.4-16.0); Lymphocytes # (A) 1.8 k/uL (1.0-4.8); Lymphocytes % (A) 19 %; MCH 28.4 pg (25.0-35.0); MCHC 32.5 g/dL (31.0-37.0); MCV 87.4 fL (80.0-100.0); Mean Platelet Volume 7.8; Monocytes # (A) 0.6 k/uL (0-1.0); Monocytes % (A) 6 %; Neutrophils # (A) 6.9 k/uL (1.3-7.7); Neutrophils % (A) 71 %; Platelet Count 286 k/uL (150-450); RBC 5.01 m/uL (3.80-5.40); RDW 15.4 % (11.5-15.5); WBC 9.7 k/uL (3.8-10.6)
[2021-11-20 17:40] LABS: Partial Thromboplastin Time 23.9 sec (22.0-30.0); Prothrombin Time 10.4 sec (9.0-12.0)
[2021-11-20 17:46] LABS: Albumin 4.3 g/dL (3.5-5.0); Calcium 9.8 mg/dL (8.4-10.2); Magnesium 1.6 mg/dL (1.6-2.3); Potassium 4.1 mmol/L (3.5-5.1); Total Bilirubin 0.3 mg/dL (0.2-1.3)
[2021-11-20 17:58] VITALS: RESP 20
--- NOTE | 2021-11-20 17:58 | XR ---
EXAMINATION TYPE: XR chest 2V DATE OF EXAM: 11/20/2021 COMPARISON: 08/24/2021 HISTORY: Rib pain TECHNIQUE: 2 views FINDINGS: Heart is normal. Lungs are clear of consolidation. There is some coarsening of interstitial markings. No pleural effusion. The bones are osteopenic. There is 50% anterior wedging of mid thorac ic vertebra there is probably T7. IMPRESSION: There is some increased pulmonary interstitial density compared to old exam. This could b e mild acute heart failure or mild acute interstitial pneumonia. Thoracic compression fracture withou t change. There is probably some COPD.
--- NOTE | 2021-11-20 17:59 | XR ---
EXAMINATION TYPE: XR ribs LT DATE OF EXAM: 11/20/2021 COMPARISON: NONE HISTORY: Pain TECHNIQUE: 4 views FINDINGS: There is no pleural effusion or pneumothorax. No rib fracture seen. IMPRESSION: No evidence of a left-sided rib fracture.
[2021-11-20 18:34] VITALS: BP 155/81; PULSE 83; TEMP 97.9
== END 2021-11-20 18:40 | disposition home or self-care (01) ==
LOC: EC 16:08
DX: M94.0 Chondrocostal junction syndrome [Tietze] (principal); E03.9 Hypothyroidism, unspecified; E11.9 Type 2 diabetes mellitus without complications; E78.5 Hyperlipidemia, unspecified; I11.0 Hypertensive heart disease with heart failure; I50.9 Heart failure, unspecified; J44.9 Chronic obstructive pulmonary disease, unspecified; K21.9 Gastro-esophageal reflux disease without esophagitis; Z79.82 Long term (current) use of aspirin; Z79.84 Long term (current) use of oral hypoglycemic drugs; Z88.8 Allergy status to other drugs, medicaments and biological substances; Z88.1 Allergy status to other antibiotic agents; Z91.041 Radiographic dye allergy status; Z91.09 Other allergy status, other than to drugs and biological substances; Z79.899 Other long term (current) drug therapy; Z79.51 Long term (current) use of inhaled steroids; Z79.890 Hormone replacement therapy
CPT/HCPCS: 36415; 93005; 80053; 83735; 84484; 85025; 85610; 85730; 71100; 71046; 99285; 96374; J1885

== ENCOUNTER → 2022-01-24 | Outpatient (CLI) | payer MEDICARE, OTHER ==
[2022-01-24 18:22] LABS: Basophils # (A) 0.08 X 10*3/uL (0.00-0.10); Eosinophils # (A) 0.29 X 10*3/uL (0.04-0.35); Eosinophils % (A) 3.5 %; HCT 42.9 % (37.2-46.3); Immature Grans, Automated 0.4 %; Lymphocytes # (A) 3.08 X 10*3/uL (0.90-5.00); MCH 28.8 pg (27.0-32.0); MCHC 32.6 g/dL (32.0-37.0); MCV 88.3 fL (80.0-97.0); Mean Platelet Volume 10.4 fL (9.5-12.2); Monocytes # (A) 0.69 X 10*3/uL (0.20-1.00); Monocytes % (A) 8.3 %; NRBC Per 100 WBC 0 /100 WBCS (0.0-0.0); Neutrophils # (A) 4.16 X 10*3/uL (1.80-7.70); Neutrophils % (A) 49.8 %; Platelet Count 273 X 10*3/uL (140-440); RBC 4.86 X 10*6/uL (4.10-5.20); RDW 16.4 % (11.5-14.5); WBC 8.33 X 10*3/uL (4.50-10.00)
[2022-01-24 19:08] LABS: ALT 14 U/L (8-44); AST 17 U/L (13-35); African American GFR (CKD) 76.8 (60.0-200.0); Albumin 4.2 g/dL (3.8-4.9); Albumin/Globulin Ratio 1.74 (1.60-3.17); Alkaline Phosphatase 113 U/L (41-126); BUN/Creat Ratio 18.22 Ratio (12.00-20.00); Calcium 9.7 mg/dL (8.7-10.3); Chloride 108 mmol/L (96-109); Chol/HDL Ratio 2.09 Ratio; Globulin 2.4 g/dL (1.6-3.3); Glucose 97 mg/dL (70-110); LDL Cholesterol,Calculated 48.4 mg/dL (0.0-131.0); Non-African American GFR(CKD) 66.3 (60.0-200.0); Potassium 4.3 mmol/L (3.5-5.5); Sodium 142 mmol/L (135-145); Total Protein 6.6 g/dL (6.2-8.2)
== END | disposition home or self-care (01) ==
LOC: LABWHC1 11:16
PROVIDERS: ATTEND Family Medicine
DX: I10 Essential (primary) hypertension (principal); E03.9 Hypothyroidism, unspecified; E78.5 Hyperlipidemia, unspecified
CPT/HCPCS: 36415; 80053; 80061; 84443; 85025

== ENCOUNTER 2022-05-09 12:50 | Emergency (ER) | payer MEDICARE, OTHER ==
[2022-05-09 12:55] VITALS: BP 162/98; RESP 18; TEMP 97.6
[2022-05-09] MEDS ORDERED: IPRATROPIUM 0.5 MG/2.5 ML NEBU INHALATION STA (13:10)
--- NOTE | 2022-05-09 13:29 | XR ---
EXAMINATION TYPE: XR chest 2V DATE OF EXAM: 05/09/2022 1:23 PM COMPARISON: Chest radiographs from 11/20/2021 TECHNIQUE: XR chest 2V Frontal and lateral views of the chest. CLINICAL INDICATION:Female, 71 years old with history of Cough, STAR; FINDINGS: Lungs/Pleura: There is flattening of the diaphragm with increased lucency of the lungs. No evidence o f pneumothorax, pleural effusion or focal consolidation. Increased AP diameter. Subtle peripheral int erstitial changes and mild basilar interstitial changes noted. Eventration of the right hemidiaphragm . Pulmonary vascularity: Unremarkable. Heart/mediastinum: Cardiomediastinal silhouette is unremarkable. Atherosclerotic calcifications are seen in the aorta. Musculoskeletal: No acute osseous pathology. Increased thoracic kyphosis. IMPRESSION: 1. Chronic changes without evidence for acute process. 2. COPD changes.
[2022-05-09 13:41] VITALS: PULSE 86
[2022-05-09] MEDS ORDERED: DEXAMETHASONE SOD PHOSPHATE 10 MG/ML 1 ML VIAL IM STA (13:54)
--- NOTE | 2022-05-09 13:57 | ED ---
URI HPI - General Chief Complaint: Upper Respiratory Infection Stated Complaint: congestion Time Seen by Provider: 05/09/22 12:58 Source: patient, RN notes reviewed Mode of arrival: ambulatory Limitations: no limitations - History of Present Illness Initial Comments: This is a 71-year-old female who presents to the emergency department for coughing and shortness of breath. Symptoms started 2 days ago. States that she is producing green phlegm with the cough. She is using her levalbuterol inhaler with no relief. Denies any fevers, chills, or chest pain. Believes that she is getting pneumonia, which she most recently had about one year ago. Denies any sick contacts. She does have COPD and smokes daily. Denies any fevers, chills, sore throat, chest pain, palpitations, abdominal pain, nausea, vomiting, diarrhea, back pain, or headaches. MD Complaint: cough, other (shortness of breath) Onset/Timin -: days(s) - Related Data Home Medications Medication Instructions Recorded Confirmed traMADol HCL [Ultram] 50 mg PO BID@999,199903/23/14 05/09/22 Metoprolol Tartrate [Lopressor] 25 mg PO BID@0700,1900 09/17/15 05/09/22 Pantoprazole Sodium 40 mg PO DAILY@0911/29/15 05/09/22 Atorvastatin [Lipitor] 40 mg PO HS@0 06/07/19 05/09/22 Fluticasone Furoate [Arnuity 1 puff INHALATION RT-DAILY 06/07/19 05/09/22 Ellipta] lisinopriL [Zestril] 20 mg PO DAILY@0706/07/19 05/09/22 Levalbuterol Tartrate 2 puff INHALATION RT-Q4H PRN 07/21/19 05/09/22 [Levalbuterol Tartrate 45 MCG Hfa] Aspirin 325 mg PO BID@999,199907/27/19 05/09/22 metFORMIN HCL ER [Glucophage XR] 1,000 mg PO DAILY@0800 07/27/19 05/09/22 Levothyroxine Sodium [Levo-T] 150 mcg PO Q2D@0705/09/22 05/09/22 Levothyroxine Sodium [Synthroid] 75 mcg PO Q2D@0700 05/09/22 05/09/22 Previous Rx's Medication Instructions Recorded Benzonatate [Tessalon Perles] 100 mg PO TID PRN #20 capsule 05/09/22 Doxycycline [Vibramycin] 100 mg PO BID 7 Days #14 capsule 05/09/22 Ipratropium [place] [Atrovent Hfa] 2 puff INHALATION QID PRN #12.9 gm 05/09/22 predniSONE 50 mg PO DAILY 5 Days #5 tab 05/09/22 Allergies Allergy/AdvReac Type Severity Reaction Status Date / Time azithromycin [From Zithromax] Allergy Rash/Hives Verified 05/09/22 12:56 clindamycin Allergy Rash/Hives Verified 05/09/22 12:56 Iodinated Contrast Media Allergy Rash/Hives Verified 05/09/22 12:56 adhesive tape AdvReac Severe bruises Verified 05/09/22 12:56 diphenhydramine HCl AdvReac Unknown KEEPS HER Verified 05/09/22 12:56 [From Benadryl] AWAKE. albuterol AdvReac Rapid Verified 05/09/22 12:56 Heart Rate bandaid AdvReac Severe bruise Uncoded 05/09/22 12:56 Review of Systems ROS Statement: Those systems with pertinent positive or pertinent negative responses have been documented in the HPI. ROS Other: All systems not noted in ROS Statement are negative. Past Medical History Past Medical History: Heart Failure, COPD, Diabetes Mellitus, GERD/Reflux, Hyperlipidemia, Hypertension, Pneumonia, Thyroid Disorder, Vascular Disorder Additional Past Medical History / Comment(s): NIDDM type II, bronchitis, R side caratid stenosis, osteoporosis, scoliosis, chronic pain bilateral hips/knees/ankles and rivs, hypothyroid, History of Any Multi-Drug Resistant Organisms: None Reported Past Surgical History: No Surgical Hx Reported Additional Past Anesthesia/Blood Transfusion Reaction / Comment(s): PT HAS NEVER RECEIVED ANESTHESIA Past Psychological History: Anxiety, Panic Disorder Smoking Status: Current every day smoker Past Alcohol Use History: None Reported Past Drug Use History: None Reported - Past Family History Mother Family Medical History: Thyroid Disorder Additional Family Medical History / Comment(s): hypothyroid Father Family Medical History: Myocardial Infarction ([place]) Additional Family Medical History / Comment(s): Father of a [place] before age 50 yrs. Brother(s) Additional Family Medical History / Comment(s): Chrons General Exam Limitations: no limitations General appearance: alert, in no apparent distress Head exam: Present: atraumatic, normocephalic, normal inspection Respiratory exam: Present: decreased breath sounds, prolonged expiratory Cardiovascular Exam: Present: regular rate, normal rhythm, normal heart sounds. Absent: systolic murmur, diastolic murmur, rubs, gallop, clicks Neurological exam: Present: alert, oriented X3, CN II-XII intact Psychiatric exam: Present: normal affect, normal mood Skin exam: Present: warm, dry, intact, normal color. Absent: rash Course Vital Signs 05/09/22 05/09/22 05/09/22 12:51 13:30 13:40 Temperature 97.6 F Pulse Rate 87 84 86 Respiratory 18 Rate Blood Pressure 162/98 O2 Sat by Pulse 94 L Oximetry Medical Decision Making - Medical Decision Making This is a 71-year-old female who presents to the emergency department for coughing and shortness of breath. My interpretation of the patient's chest x- ray reveals no localized consolidations or infiltrates. COVID and influenza testing negative. She was given an Atrovent breathing treatment in the emergency department with mild relief. She was also given a dose of IM Decadron. Advised the patient that symptoms are most likely related to a COPD exacerbation or acute bronchitis secondary to a viral infection. Prescription for 5 day course of prednisone, Tessalon Perles, and an Atrovent inhaler provided. She was also given a prescription for doxycycline, which I advised she started taking if symptoms do not improve over the next couple of days. Advised she avoid this initially as this is most likely a viral infection. Return precautions reviewed in depth, the patient is instructed to return to the emergency department with any new, worsening, or concerning symptoms. Patient verbalized understanding. This case was discussed in detail with the attending ED physician. Presentation, findings, and treatment plan discussed in detail as well. - Lab Data Lab Results 05/09/22 05/09/22 Range/Units 13:20 13:20 Coronavirus (PCR) Not Detected (Not Detectd) Influenza Type A RNA Not Detected (Not Detectd) Influenza Type B (PCR) Not Detected (Not Detectd) - Radiology Data Radiology results: report reviewed, image reviewed Disposition Clinical Impression: Bronchitis, COPD exacerbation Disposition: HOME SELF-CARE Condition: Good Instructions (If sedation given, give patient instructions): Acute Bronchitis (ED), COPD (Chronic Obstructive Pulmonary Disease) (ED) Additional Instructions: Return to the emergency department with any new, worsening, or concerning symptoms. Take the antibiotic as prescribed for 7 days, take the prednisone daily for 5 days. The cough medication can be used up to 3 times daily as needed and the Atrovent inhaler can be used up to 4 times daily as needed. Follow up with your primary care provider in 1-2 days. Prescriptions: Ipratropium [place] [Atrovent Hfa] 2 puff INHALATION QID PRN #12.9 gm PRN Reason: Shortness Of Breath predniSONE 50 mg PO DAILY 5 Days #5 tab Benzonatate [Tessalon Perles] 100 mg PO TID PRN #20 capsule PRN Reason: Cough Doxycycline [Vibramycin] 100 mg PO BID 7 Days #14 capsule Is patient prescribed a controlled substance at d/c from ED?: No Referrals: Zach Ramirez MD [Primary Care Provider] - 1-2 days
== END 2022-05-09 15:32 | disposition home or self-care (01) ==
LOC: EC 12:50
DX: J44.1 Chronic obstructive pulmonary disease with (acute) exacerbation (principal); I11.0 Hypertensive heart disease with heart failure; I50.9 Heart failure, unspecified; E11.9 Type 2 diabetes mellitus without complications; E78.5 Hyperlipidemia, unspecified; E07.9 Disorder of thyroid, unspecified; F41.9 Anxiety disorder, unspecified; K21.9 Gastro-esophageal reflux disease without esophagitis; F17.200 Nicotine dependence, unspecified, uncomplicated; Z79.891 Long term (current) use of opiate analgesic; Z79.02 Long term (current) use of antithrombotics/antiplatelets; Z79.899 Other long term (current) drug therapy; Z20.822 Contact with and (suspected) exposure to COVID-19; Z88.1 Allergy status to other antibiotic agents; Z91.041 Radiographic dye allergy status; Z91.048 Other nonmedicinal substance allergy status; Z88.8 Allergy status to other drugs, medicaments and biological substances; Z79.82 Long term (current) use of aspirin; Z79.890 Hormone replacement therapy
CPT/HCPCS: 99283 ×2; 96372 ×2; 94640; 87502; 87635; 71046; J1100

== ENCOUNTER → 2023-03-23 | Outpatient (CLI) | payer MEDICARE, OTHER ==
[2023-03-23 16:02] LABS: Basophils # (A) 0.09 X 10*3/uL (0.00-0.10); Basophils % (A) 1.1 %; Eosinophils # (A) 0.14 X 10*3/uL (0.04-0.35); Eosinophils % (A) 1.8 %; HCT 43.7 % (37.2-46.3); HGB 14.2 d/dL (12.0-15.0); Lymphocytes # (A) 2.41 X 10*3/uL (0.90-5.00); Lymphocytes % (A) 30.4 %; MCH 28.6 pg (27.0-32.0); MCHC 32.5 d/dL (32.0-37.0); MCV 87.9 FL (80.0-97.0); Monocytes % (A) 7.6 %; NRBC Per 100 WBC 0 X 10*3/uL (0.00-0.01); Neutrophils # (A) 4.65 X 10*3/uL (1.80-7.70); Neutrophils % (A) 58.6 %; Platelet Count 261 X 10*3/uL (140-440); RBC 4.97 X 10*6/uL (4.10-5.20); RDW 15.4 % (11.5-14.5); WBC 7.93 X 10*3/uL (4.50-10.00)
[2023-03-23 17:16] LABS: ALT 13 U/L (8-44); AST 18 U/L (13-35); Albumin 4.2 d/dL (3.8-4.9); Albumin/Globulin Ratio 1.91 Ratio (1.60-3.17); Alkaline Phosphatase 100 U/L (41-126); BUN/Creat Ratio 15.89 Ratio (12.00-20.00); Blood Urea Nitrogen 14.3 mg/dL (9.0-27.0); Calcium 9.9 mg/dL (8.7-10.3); Chloride 107 mmol/L (96-109); Chol/HDL Ratio 2.16 Ratio; Globulin 2.2 d/dL (1.6-3.3); Glucose 95 mg/dL (70-110); LDL Cholesterol,Calculated 51.5 mg/dL (0.0-131.0); Potassium 4.9 mmol/L (3.5-5.5); Sodium 142 mmol/L (135-145); Total Bilirubin 0.4 mg/dL (0.3-1.2); Total Protein 6.4 d/dL (6.2-8.2); VLDL Calculation 17.22 mg/dL (5.00-40.00)
== END | disposition home or self-care (01) ==
LOC: LABWHC1 10:59
PROVIDERS: ATTEND Family Medicine
DX: Z12.11 Encounter for screening for malignant neoplasm of colon (principal); I10 Essential (primary) hypertension; E11.59 Type 2 diabetes mellitus with other circulatory complications; E78.2 Mixed hyperlipidemia; E11.69 Type 2 diabetes mellitus with other specified complication
CPT/HCPCS: 36415; 80053; 80061; 82043; 82570; 84443; 85025

== ENCOUNTER → 2023-03-26 | Outpatient (CLI) | payer MEDICARE, OTHER ==
--- NOTE | 2023-03-27 06:52 | BD ---
EXAMINATION TYPE: Axial Bone Density DATE OF EXAM: 03/26/2023 CLINICAL HISTORY: 72 years old Female. ICD-10 CODE: Z13.820 screening for osteoporosis Height: 59 in Weight: 141 lbs FRAX RISK QUESTIONS: Current Tobacco Use: yes RISK FACTORS HISTORY OF: Active: yes Postmenopausal woman: age 48 Lost more than 2 inches in height since high school: yes MEDICATIONS: Thyroid Medications: yes Which medication: Levothyroxine How Lon+ years Additional Medications: blood pressure meds, statins, tramadol EXAM MEASUREMENTS: Bone mineral densitometry was performed using the [employer] System. Bone mineral density as measured about the Lumbar spine is: ----- L1-L4(G/cm2): 0.836 T Score Values are as follows: ----- L1: -2.3 ----- L2: -3.5 ----- L3: -3.1 ----- L4: -2.7 ----- L1-L4: -2.9 Z Score Values are as follows: ----- L1: -0.6 ----- L2: -1.7 ----- L3: -1.4 ----- L4: -0.9 ----- L1-L4: -1.1 Bone mineral density has: Decreased -4.5% since study of: 12/11/2017 Bone mineral density about the R hip (g/cm2): 0.696 Bone mineral density about the L hip (g/cm2): 0.671 T Score values are as follows: -----R Neck: -2.8 -----L Neck: -3.1 -----R Total: -2.5 -----L Total: -2.7 Z Score values are as follows: -----R Neck: -1.0 -----L Neck: -1.3 -----R Total: -0.8 -----L Total: -1.0 Bone mineral density has: Decreased -10.9% since study of: 12/11/17 FRAX%s: The graph provided illustrates a 26.6% chance for a major osteoporotic fx and a 12.3% chance for the hips probability for fx in 10 years time. IMPRESSION: Osteoporosis (T Score less than -2.5). There is increased fracture risk and therapy is usually indicated based on age. Re-Screen 1-2 years. NOTE: T-SCORE=SD OF THE YOUNG ADULT MEAN.
--- NOTE | 2023-03-27 08:16 | MM ---
Reason for Exam: Screening (asymptomatic). Last mammogram was performed 2 year(s) and 5 month(s) ago. Patient History: Menarche at age 13. First Full-Term at age 21. Postmenopausal. Risk Values: Soo 5 year model risk: 1.6%. NCI Lifetime model risk: 4.1%. Prior Study Comparison: 11/24/2015 Bilateral Screening Mammogram, [facility]. 12/11/2017 Bilateral Screening Mammogram, [facility]. 11/12/2020 Bilateral Screening Mammogram, [facility]. Tissue Density: There are scattered fibroglandular densities. Findings: Analyzed By CAD. There is no suspicious group of microcalcifications or new suspicious mass in either breast. Overall Assessment: Negative, BI-RAD 1 Management: Screening Mammogram of both breasts in 1 year. A clinical breast exam by your physician is recommended on an annual basis and results should be correlated with mammographic findings. Note on Soo scores and lifetime risk: 1. A Soo score greater than 3% is considered moderate risk. If this is the case, consider specialist referral to assess eligibility for a risk reducing agent. If overall lifetime risk for the development of breast cancer is 20% or higher, the patient may qualify for future screening with alternating mammogram and breast MRI. Electronically signed and approved by: Paul Chappell D.O.
== END | disposition home or self-care (01) ==
LOC: RADBDWWP 15:15
PROVIDERS: ATTEND Family Medicine
DX: Z12.31 Encounter for screening mammogram for malignant neoplasm of breast (principal); Z13.820 Encounter for screening for osteoporosis; M81.0 Age-related osteoporosis without current pathological fracture; M85.88 Other specified disorders of bone density and structure, other site; Z78.0 Asymptomatic menopausal state
CPT/HCPCS: 77067; 77080

== ENCOUNTER 2023-07-25 18:06 | Inpatient (IN) | payer MEDICARE, OTHER ==
[2023-07-25 18:27] VITALS: TEMP 97.6
[2023-07-25 19:09] LABS: Basophils # (A) 0.1 k/uL (0-0.2); Basophils % (A) 1 %; Eosinophils # (A) 0.1 k/uL (0-0.7); Eosinophils % (A) 1 %; HCT 43.1 % (34.0-46.0); HGB 14.5 gm/dL (11.4-16.0); Lymphocytes # (A) 2.2 k/uL (1.0-4.8); Lymphocytes % (A) 27 %; MCH 29.6 pg (25.0-35.0); MCHC 33.6 g/dL (31.0-37.0); MCV 88.2 fL (80.0-100.0); Mean Platelet Volume 7.8; Monocytes # (A) 0.6 k/uL (0-1.0); Monocytes % (A) 7 %; Neutrophils % (A) 61 %; Platelet Count 246 k/uL (150-450); RBC 4.89 m/uL (3.80-5.40); RDW 15.2 % (11.5-15.5); WBC 8.2 k/uL (3.8-10.6)
[2023-07-25 19:23] LABS: ALT 14 U/L (4-34); AST 22 U/L (14-36); African American GFR (CKD) >90 (>60 ml/min/1.73 sqM); Albumin 4.4 g/dL (3.5-5.0); Alkaline Phosphatase 87 U/L (38-126); Anion Gap 7 mmol/L; Blood Urea Nitrogen 13 mg/dL (7-17); Calcium 9.7 mg/dL (8.4-10.2); Carbon Dioxide 22 mmol/L (22-30); Chloride 112 mmol/L (98-107); Glucose 116 mg/dL (74-99); Magnesium 1.7 mg/dL (1.6-2.3); Non-African American GFR(CKD) 85 (>60 ml/min/1.73 sqM); Potassium 3.9 mmol/L (3.5-5.1); Sodium 141 mmol/L (137-145); Total Bilirubin 0.4 mg/dL (0.2-1.3)
--- NOTE | 2023-07-25 19:41 | XR ---
EXAMINATION TYPE: XR chest 2V DATE OF EXAM: 07/25/2023 7:15 PM CLINICAL INDICATION:Female, 73 years old with history of Chest Pain; COMPARISON: Chest radiographs from 05/09/2022 TECHNIQUE: XR chest 2V Frontal and lateral views of the chest. FINDINGS: Lungs/Pleura: There is flattening of the diaphragm with increased lucency of the lungs. No evidence o f pneumothorax, pleural effusion or focal consolidation. Pulmonary vascularity: Unremarkable. Heart/mediastinum: Cardiomediastinal silhouette is unremarkable. Musculoskeletal: No acute osseous pathology. Other findings: None IMPRESSION: 1. No acute cardiopulmonary disease process. 2. COPD changes.
--- NOTE | 2023-07-25 19:44 | ED ---
Recheck HPI - General Chief Complaint: Chest Pain Stated Complaint: Low heart rate Time Seen by Provider: 07/25/23 19:25 Source: patient, RN notes reviewed, old records reviewed Mode of arrival: ambulatory Limitations: no limitations - History of Present Illness Initial Comments: This is a 73-year-old female presented to the ER from outpatient primary care. Patient was at primary care's office for normal checkup and was found of a low heart rate at this time. Patient is asymptomatic has no complaints of chest pain headache shortness of breath abdominal pain weakness no change in medications recently. MD Complaint: abnormal lab (Low heart rate) -: unknown Returns Today for: other (Low heart rate) Context: planned re-check Associated Symptoms: none Treatments Prior to Arrival: other (0) - Related Data Home Medications Medication Instructions Recorded Confirmed traMADol HCL [Ultram] 50 - 100 mg PO BID 03/23/14 07/25/23 Metoprolol Tartrate [Lopressor] 25 mg PO BID 09/17/15 07/25/23 Pantoprazole Sodium 40 mg PO DAILY 11/29/15 07/25/23 Atorvastatin [Lipitor] 40 mg PO HS 06/07/19 07/25/23 lisinopriL [Zestril] 20 mg PO BID 06/07/19 07/25/23 Levalbuterol Tartrate 2 puff INHALATION RT-Q4H PRN 07/21/19 07/25/23 [Levalbuterol Tartrate 45 MCG Hfa] Aspirin 325 mg PO BID 07/27/19 07/25/23 metFORMIN HCL ER [Glucophage XR] 1,000 mg PO DAILY@0800 07/27/19 07/25/23 Levothyroxine Sodium [Levo-T] 150 mcg PO MOTHSA 05/09/22 07/25/23 Levothyroxine Sodium [Synthroid] 75 mcg PO SUTUWEFR 05/09/22 07/25/23 Calcium Carbonate [Calcium] 600 mg PO BID 07/25/23 07/25/23 Umeclidinium Brm/Vilanterol Tr 1 puff INHALATION RT-DAILY 07/25/23 07/25/23 [Anoro Ellipta 62.5-25 Mcg INH] amLODIPine [Norvasc] 5 mg PO DAILY 07/25/23 07/25/23 traMADol HCL 50 - 100 mg PO DAILY PRN 07/25/23 07/25/23 Previous Rx's Medication Instructions Recorded Nicotine 14Mg/24Hr Patch [Habitrol] 1 patch TRANSDERM DAILY patch 07/26/23 Allergies Allergy/AdvReac Type Severity Reaction Status Date / Time azithromycin [From Zithromax] Allergy Rash/Hives Verified 07/25/23 20:45 clindamycin Allergy Rash/Hives Verified 07/25/23 20:45 Iodinated Contrast Media Allergy Rash/Hives Verified 07/25/23 20:45 adhesive tape AdvReac Severe bruises Verified 07/25/23 20:45 diphenhydramine HCl AdvReac Unknown KEEPS HER Verified 07/25/23 20:45 [From Benadryl] AWAKE. albuterol AdvReac Rapid Verified 07/25/23 20:45 Heart Rate bandaid AdvReac Severe bruise Uncoded 05/09/22 12:56 Review of Systems ROS Statement: Those systems with pertinent positive or pertinent negative responses have been documented in the HPI. ROS Other: All systems not noted in ROS Statement are negative. Past Medical History Past Medical History: Heart Failure, COPD, Diabetes Mellitus, GERD/Reflux, Hyperlipidemia, Hypertension, Pneumonia, Thyroid Disorder, Vascular Disorder Additional Past Medical History / Comment(s): NIDDM type II, bronchitis, R side caratid stenosis, osteoporosis, scoliosis, chronic pain bilateral hips/knees/ankles and rivs, hypothyroid, History of Any Multi-Drug Resistant Organisms: None Reported Past Surgical History: No Surgical Hx Reported Additional Past Anesthesia/Blood Transfusion Reaction / Comment(s): PT HAS NEVER RECEIVED ANESTHESIA Past Psychological History: Anxiety, Panic Disorder Smoking Status: Current every day smoker Past Alcohol Use History: None Reported Past Drug Use History: None Reported - Past Family History Mother Family Medical History: Thyroid Disorder Additional Family Medical History / Comment(s): hypothyroid Father Family Medical History: Myocardial Infarction ([place]) Additional Family Medical History / Comment(s): Father of a [place] before age 50 yrs. Brother(s) Additional Family Medical History / Comment(s): Chrons General Exam Limitations: no limitations General appearance: alert, in no apparent distress Head exam: Present: atraumatic, normocephalic, normal inspection Eye exam: Present: normal appearance, PERRL, EOMI. Absent: scleral icterus, conjunctival injection, periorbital swelling ENT exam: Present: normal exam, mucous membranes moist Neck exam: Present: normal inspection. Absent: tenderness, meningismus, lymphadenopathy Respiratory exam: Present: normal lung sounds bilaterally. Absent: respiratory distress, wheezes, rales, rhonchi, stridor Cardiovascular Exam: Present: normal rhythm, bradycardia, normal heart sounds. Absent: systolic murmur, diastolic murmur, rubs, gallop, clicks GI/Abdominal exam: Present: soft, normal bowel sounds. Absent: distended, tenderness, guarding, rebound, rigid Extremities exam: Present: normal inspection, full ROM, normal capillary refill. Absent: tenderness, pedal edema, joint swelling, calf tenderness Back exam: Present: normal inspection Neurological exam: Present: alert, oriented X3, CN II-XII intact Psychiatric exam: Present: normal affect, normal mood Skin exam: Present: warm, dry, intact, normal color. Absent: rash Course Vital Signs 07/25/23 07/25/23 07/25/23 18:11 19:29 21:00 Temperature 97.6 F Pulse Rate 44 L 90 82 Respiratory 16 18 18 Rate Blood Pressure 158/72 202/75 183/70 O2 Sat by Pulse 98 96 95 Oximetry 07/25/23 07/25/23 07/26/23 21:30 23:00 01:30 Temperature Pulse Rate 96 90 81 Respiratory 18 18 18 Rate Blood Pressure 162/77 163/67 145/91 O2 Sat by Pulse 96 97 98 Oximetry 07/26/23 07/26/23 05:00 10:57 Temperature Pulse Rate 94 78 Respiratory 18 20 Rate Blood Pressure 147/87 134/78 O2 Sat by Pulse 98 94 L Oximetry - Reevaluation(s) Reevaluation #1: 07/25/23 20:12 Medical record is reviewed Reevaluation #2: 07/25/23 20:12 Patient symptoms are unchanged and she remains asymptomatic Reevaluation #3: 07/25/23 20:12 Patient informed of results and questions answered Reevaluation #4: 07/25/23 20:12 Was pt. sent in by a medical professional or institution (, PA, STOCK PARTS FABRICATOR, urgent care, hospital, or care home...) When possible be specific @ -no Did you speak to anyone other than the patient for history (EMS, parent, family, police, friend...)? What history was obtained from this source @ -no Did you review nursing and triage notes (agree or disagree)? Why? @ -agree Are old charts reviewed (outside hosp., previous admission, EMS record, old EKG, old radiological studies, urgent care reports/EKG's, care home records)? Report findings @ -yes Differential Diagnosis (chest pain, altered mental status, abdominal pain women, abdominal pain men, vaginal bleeding, weakness, fever, dyspnea, syncope, headache, dizziness, GI bleed, back pain, seizure, CVA, palpatations, mental health, musculoskeletal)? @ -prior EKG interpreted by me (3pts min.). @ -yes X-rays interpreted by me (1pt min.). @ -yes negative for acute disease CT interpreted by me (1pt min.). @ -no U/S interpreted by me (1pt. min.). @ -no What testing was considered but not performed or refused? (CT, X-rays, U/S, labs)? Why? @ -none What meds were considered but not given or refused? Why? @ -none Did you discuss the management of the patient with other professionals (professionals i.e. , PA, STOCK PARTS FABRICATOR, lab, RT, psych nurse, social welfare clerk, shelf drier operator, teacher, chief lending officer, pillowcase cleaner)? Give summary @ -no Was smoking cessation discussed for >3mins.? @ -no Was critical care preformed (if so, how long)? @ -yes31 Were there social determinants of health that impacted care today? How? (Homelessness, low income, unemployed, alcoholism, drug addiction, transpor tation, low edu. Level, literacy, decrease access to med. care, residential, rehab)? @ -none Was there de-escalation of care discussed even if they declined (Discuss DNR or withdrawal of care, Hospice)? DNR status @ -no What co-morbidities impacted this encounter? (DM, HTN, Smoking, COPD, CAD, Cancer, CVA, ARF, Chemo, Hep., AIDS, mental health diagnosis, sleep apnea, morbid obesity)? @ -none Was patient admitted / discharged? Hospital course, mention meds given and route, prescriptions, significant lab abnormalities, going to OR and other pertinent info. @ - 73 female to ER for evaluation of bradycardia. Patient is having 1 PVC after every normal cardiac cycle. Patient's pulse remains around 40. Patient has and remains without complaint here in the emergency room but will admit for cardiology to see, blood pressure is currently high Admitted Undiagnosed new problem with uncertain prognosis? @ -no Drug Therapy requiring intensive monitoring for toxicity (Heparin, Nitro, Insulin, Cardizem)? @ -no Were any procedures done? @ -no Diagnosis/symptom? @ -Bradycardia hypertension Acute, or Chronic, or Acute on Chronic? @ -Acute Uncomplicated (without systemic symptoms) or Complicated (systemic symptoms)? @ -Complicated Side effects of treatment? @ -no Exacerbation, Progression, or Severe Exacerbation? @ -exacerbation Poses a threat to life or bodily function? How? (Chest pain, [place], [place], pneumonia, PE, COPD, DKA, ARF, appy, cholecystitis, CVA, Diverticulitis, Homicidal, Suicida l, threat to staff... and all critical care pts) @ -yes with extremes of age and bradycardia Reevaluation #5: 07/25/23 20:12 Differential Chest Pain: Stable Angina, Unstable Angina, STEMI, NSTEMI Aortic Dissection, Pneumothorax, Musculoskeletal, Esophageal Spasm GERD, Cholecystitis, Pancreatitis, Zoster, this is not meant to be an all-inclusive list. - Consultations Consultation #1: Spoke with Dr. Baldwni who agrees to admit this patient Medical Decision Making - Medical Decision Making 73 female to ER for evaluation of bradycardia. Patient is having 1 PVC after every normal cardiac cycle. Patient's pulse remains around 40. Patient has and remains without complaint here in the emergency room but will admit for cardiology to see, blood pressure is currently high - Lab Data Result diagrams: 07/26/23 09:07 07/26/23 09:07 Lab Results 07/25/23 07/25/23 07/25/23 Range/Units 18:23 18:23 18:23 WBC 8.2 (3.8-10.6) k/uL RBC 4.89 (3.80-5.40) m/uL Hgb 14.5 (11.4-16.0) gm/dL Hct 43.1 (34.0-46.0) % MCV 88.2 (80.0-100.0) fL MCH 29.6 (25.0-35.0) pg MCHC 33.6 (31.0-37.0) g/dL RDW 15.2 (11.5-15.5) % Plt Count 246 (150-450) k/uL MPV 7.8 Neutrophils % 61 % Lymphocytes % 27 % Monocytes % 7 % Eosinophils % 1 % Basophils % 1 % Neutrophils # 5.0 (1.3-7.7) k/uL Lymphocytes # 2.2 (1.0-4.8) k/uL Monocytes # 0.6 (0-1.0) k/uL Eosinophils # 0.1 (0-0.7) k/uL Basophils # 0.1 (0-0.2) k/uL Sodium 141 (137-145) mmol/L Potassium 3.9 (3.5-5.1) mmol/L Chloride 112 H (98-107) mmol/L Carbon Dioxide 22 (22-30) mmol/L Anion Gap 7 mmol/L BUN 13 (7-17) mg/dL Creatinine 0.71 (0.52-1.04) mg/dL Est GFR (CKD-EPI)AfAm >90 (>60 ml/min/1.73 sqM) Est GFR (CKD-EPI)NonAf 85 (>60 ml/min/1.73 sqM) Glucose 116 H (74-99) mg/dL Calcium 9.7 (8.4-10.2) mg/dL Magnesium 1.7 (1.6-2.3) mg/dL Total Bilirubin 0.4 (0.2-1.3) mg/dL AST 22 (14-36) U/L ALT 14 (4-34) U/L Alkaline Phosphatase 87 (38-126) U/L Troponin I <0.012 (0.000-0.034) ng/mL Total Protein 7.0 (6.3-8.2) g/dL Albumin 4.4 (3.5-5.0) g/dL - EKG Data -: EKG Interpreted by Me (EKG is sinus's 87 UT 147 QRS 90 QTc 423 with PVCs) - Radiology Data Radiology results: report reviewed (Chest x-ray is negative for acute disease), image reviewed Critical Care Time Critical Care Time: Yes Total Critical Care Time: 31 Disposition Clinical Impression: Bradycardia, PVC (premature ventricular contraction), Hypertension Disposition: ADMITTED IP TO THIS HOSP Condition: Serious Is patient prescribed a controlled substance at d/c from ED?: No Time of Disposition: 20:10
[2023-07-25] MEDS ORDERED: NALOXONE 0.4 MG/ML 1 ML VIAL IV PRN (20:06)
[2023-07-25] MEDS ORDERED: ONDANSETRON 4 MG/2 ML VIAL IVP PRN (20:06)
[2023-07-25] MEDS ORDERED: MORPHINE SULFATE 4 MG/ML SYRINGE IV PRN (20:06)
[2023-07-25] MEDS ORDERED: IPRATROPIUM-ALBUTEROL 3 ML NEB INHALATION PRN (20:14)
[2023-07-25] MEDS: MORPHINE SULFATE 4 MG/ML SYRINGE IVP STA (20:49)
[2023-07-25] MEDS: NICOTINE 14MG/24HR PATCH TRANSDERM SCH (20:51)
[2023-07-25] MEDS: methylPREDNISolone SOD SUCCI 125 MG/2 ML VIAL IV STA (20:53)
[2023-07-25] MEDS: hydrALAZINE HCL 20 MG/ML 1 ML VIAL IVP STA (21:12)
[2023-07-26 05:15] LABS: Glucose,Whole Blood 114 mg/dL (70-110)
[2023-07-26] MEDS: PANTOPRAZOLE 40 MG/10 ML VIAL IV SCH (08:19)
--- NOTE | 2023-07-26 09:35 | P.CRDCN ---
History of Present Illness History of present illness: HISTORY OF PRESENT ILLNESS: This is a 73-year-old female with a past medical history significant for mild to moderate nonobstructive coronary artery disease, hypertension, hyperlipidemia, carotid stenosis, nicotine dependence. Patient follows in the office with Dr. Sims. We have been asked to see the patient in consultation for bradycardia. Patient examined at the bedside in the emergency room. Patient states she was at her PCP office yesterday, Dr. Ramirez. She was told that she was bradycardic and was told to decrease her metoprolol dose by half. She was also directed to come to the emergency room for further evaluation. EKG on admission reveals sinus mechanism with bigeminy. Bedside telemetry reveals sinus tachycardia with a heart rate of 100 with frequent PVCs. The patient denies having any dizziness or lightheadedness. She denies any chest pain or pressure. She denies any shortness of breath. Patient's blood pressure was elevated initially with a systolic around 180. However most recent blood pressure is 147/87. The patient reports she has an appointment with Dr. Sims this afternoon and is hoping to be discharged home. DIAGNOSTICS: - EKG reveals sinus mechanism. Bigeminy. No signs of acute ischemia. - Chest xray negative for acute process. COPD. - Laboratory data: WBC 8.2. Hemoglobin 14.5. Platelet count 246. Sodium 141. Potassium 3.9. BUN 13. Creatinine 0.71. Troponin negative x 3. proBNP 405. - Current home cardiac medications include aspirin 325 mg twice a day, Lipitor 40 mg at night, metoprolol tartrate 25 mg twice a day, lisinopril 20 mg twice a day, amlodipine 5 mg daily. - Most recent echocardiogram obtained in June 2022 reveals action fraction 50 to 55%, moderate TR, mild to moderate MR. - Cardiac catheterization history: 2019 revealing mild to moderate nonobstructive coronary artery disease REVIEW OF SYSTEMS: At the time of my exam: CONSTITUTIONAL: Denies fever or chills. HEENT: Denies blurred vision, vision changes, or eye pain. Denies hemoptysis CARDIOVASCULAR: Denies chest pain. Denies orthopnea. Denies PND. Denies palpitations RESPIRATORY: Denies shortness of breath. GASTROINTESTINAL: Denies abdominal pain. Denies nausea or vomiting. HEMATOLOGIC: Denies bleeding disorders. GENITOURINARY: Denies any blood in urine. SKIN: Denies pruitis. Denies rash. PHYSICAL EXAM: VITAL SIGNS: Reviewed. GENERAL: Well-developed in no acute distress. HEENT: Head is normocephalic. Pupils are equal, round. Sclerae anicteric. Mucous membranes of the mouth are moist. Neck supple. No JVD or thyromegaly LUNGS: Respirations even and unlabored. Lungs essentially clear to auscultation bilaterally. HEART: Regular rate and rhythm. S1 and S2 heard. ABDOMEN: Soft. Nondistended. Nontender. EXTREMITIES: Normal range of motion. No clubbing or cyanosis. Peripheral pulses intact. No lower extremity edema NEUROLOGIC: Awake and alert. Oriented x 3. ASSESSMENT: Bradycardia, ruled out, telemetry reveals sinus mechanism with frequent PVCs Hypertension, elevated upon admission, improved Mild to moderate nonobstructive coronary artery disease History of hyperlipidemia Nicotine dependence PLAN: Patient has had no episodes of significant bradycardia. Telemetry reveals sinus mechanism with frequent PVCs. Resume home cardiac medications Patient instructed to continue with her current dose of metoprolol Patient may be discharged home today from a cardiac standpoint. She has an appointment with her primary aquatic biologist, Dr. Sims this afternoon Nurse practitioner note has been reviewed by physician. Signing provider agrees with the documented findings, assessment, and plan of care documented by BOTTOM BLEACHER as a scribe. Past Medical History Past Medical History: Heart Failure, COPD, Diabetes Mellitus, GERD/Reflux, Hyperlipidemia, Hypertension, Pneumonia, Thyroid Disorder, Vascular Disorder Additional Past Medical History / Comment(s): NIDDM type II, bronchitis, R side carotid stenosis, osteoporosis, scoliosis, chronic pain bilateral hip s/knees/ankles, hypothyroid History of Any Multi-Drug Resistant Organisms: None Reported Past Surgical History: Heart Catheterization Additional Past Surgical History / Comment(s): "pulled muscle in ribs" Past Anesthesia/Blood Transfusion Reactions: No Reported Reaction Additional Past Anesthesia/Blood Transfusion Reaction / Comment(s): PT HAS NEVER RECEIVED ANESTHESIA Past Psychological History: Anxiety, Panic Disorder Additional Psychological History / Comment(s): Pt resides with her 96 yr old mother. She assists her mother when needed. She uses no assistive device. She can drive, but does not own a car. She uses the bus system. Smoking Status: Current every day smoker Past Alcohol Use History: None Reported Additional Past Alcohol Use History / Comment(s): Pt started smoking about 1970 and smokes 2 ppd or a little more. Past Drug Use History: None Reported - Past Family History Mother Family Medical History: Thyroid Disorder Additional Family Medical History / Comment(s): hypothyroid Father Family Medical History: Myocardial Infarction ([place]) Additional Family Medical History / Comment(s): Father of a IA before age 50 yrs. Brother(s) Additional Family Medical History / Comment(s): Crohns Medications and Allergies Home Medications Medication Instructions Recorded Confirmed Type traMADol HCL [Ultram] 50 - 100 mg PO BID 03/23/14 07/25/23 History Metoprolol Tartrate [Lopressor] 25 mg PO BID 09/17/15 07/25/23 History Pantoprazole Sodium 40 mg PO DAILY 11/29/15 07/25/23 History Atorvastatin [Lipitor] 40 mg PO HS 06/07/19 07/25/23 History lisinopriL [Zestril] 20 mg PO BID 06/07/19 07/25/23 History Levalbuterol Tartrate 2 puff INHALATION RT-Q4H PRN 07/21/19 07/25/23 History [Levalbuterol Tartrate 45 MCG Hfa] Aspirin 325 mg PO BID 07/27/19 07/25/23 History metFORMIN HCL ER [Glucophage XR] 1,000 mg PO DAILY@0800 07/27/19 07/25/23 History Levothyroxine Sodium [Levo-T] 150 mcg PO MOTHSA 05/09/22 07/25/23 History Levothyroxine Sodium [Synthroid] 75 mcg PO SUTUWEFR 05/09/22 07/25/23 History Calcium Carbonate [Calcium] 600 mg PO BID 07/25/23 07/25/23 History Umeclidinium Brm/Vilanterol Tr 1 puff INHALATION RT-DAILY 07/25/23 07/25/23 History [Anoro Ellipta 62.5-25 Mcg INH] amLODIPine [Norvasc] 5 mg PO DAILY 07/25/23 07/25/23 History traMADol HCL 50 - 100 mg PO DAILY PRN 07/25/23 07/25/23 History Allergies Allergy/AdvReac Type Severity Reaction Status Date / Time azithromycin [From Zithromax] Allergy Rash/Hives Verified 02/07/24 20:45 clindamycin Allergy Rash/Hives Verified 07/25/23 20:45 Iodinated Contrast Media Allergy Rash/Hives Verified 07/25/23 20:45 adhesive tape AdvReac Severe bruises Verified 07/25/23 20:45 diphenhydramine HCl AdvReac Unknown KEEPS HER Verified 07/25/23 20:45 [From Benadryl] AWAKE. albuterol AdvReac Rapid Verified 07/25/23 20:45 Heart Rate bandaid AdvReac Severe bruise Uncoded 05/09/22 12:56 Physical Exam Vitals: Vital Signs Temp Pulse Resp BP Pulse Ox 07/26/23 05:00 94 18 147/87 98 07/26/23 01:30 81 18 145/91 98 07/25/23 23:00 90 18 163/67 97 07/25/23 21:30 96 18 162/77 96 07/25/23 21:00 82 18 183/70 95 07/25/23 19:29 90 18 202/75 96 07/25/23 18:11 97.6 F 44 L 16 158/72 98 Intake and Output 07/25/23 07/26/23 07/26/23 22:59 06:59 14:59 Other: Weight 62.142 kg Results 07/25/23 18:23 07/25/23 18:23 Cardiac Enzymes 07/25/23 07/25/23 07/25/23 Range/Units 18:23 18:23 21:16 AST 22 (14-36) U/L Troponin I <0.012 <0.012 (0.000-0.034) ng/mL 07/26/23 Range/Units 01:01 AST (14-36) U/L Troponin I 0.028 (0.000-0.034) ng/mL CBC 07/25/23 Range/Units 18:23 WBC 8.2 (3.8-10.6) k/uL RBC 4.89 (3.80-5.40) m/uL Hgb 14.5 (11.4-16.0) gm/dL Hct 43.1 (34.0-46.0) % Plt Count 246 (150-450) k/uL Comprehensive Metabolic Panel 07/25/23 Range/Units 18:23 Sodium 141 (137-145) mmol/L Potassium 3.9 (3.5-5.1) mmol/L Chloride 112 H (98-107) mmol/L Carbon Dioxide 22 (22-30) mmol/L BUN 13 (7-17) mg/dL Creatinine 0.71 (0.52-1.04) mg/dL Glucose 116 H (74-99) mg/dL Calcium 9.7 (8.4-10.2) mg/dL AST 22 (14-36) U/L ALT 14 (4-34) U/L Alkaline Phosphatase 87 (38-126) U/L Total Protein 7.0 (6.3-8.2) g/dL Albumin 4.4 (3.5-5.0) g/dL Current Medications Generic Name Dose Route Start Last Admin Trade Name Freq PRN Reason Stop Dose Admin Albuterol/Ipratropium 3 ml 07/25/23 20:14 Ipratropium-Albuterol 3 Ml Neb INHALATION RT-TID PRN Shortness Of Breath Or Wheezing Morphine Sulfate 4 mg 07/25/23 20:06 Morphine Sulfate 4 Mg/Ml Syringe IV Q4HR PRN Severe Pain (Scale 7 to 10) Naloxone HCl 0.2 mg 07/25/23 20:06 Naloxone 0.4 Mg/Ml 1 Ml Vial IV Q2M PRN Opioid Reversal Nicotine 1 patch 07/25/23 20:45 07/26/23 07:34 Nicotine 14mg/24hr Patch TRANSDERM Not Given DAILY VITA Ondansetron HCl 4 mg 07/25/23 20:06 Ondansetron 4 Mg/2 Ml Vial IVP Q8HR PRN Nausea And Vomiting Pantoprazole Sodium 40 mg 07/26/23 09:00 07/26/23 08:19 Pantoprazole 40 Mg/10 Ml Vial IV 40 mg DAILY VITA Administration Intake and Output 07/25/23 07/26/23 07/26/23 22:59 06:59 14:59 Other: Weight 62.142 kg 07/25/23 18:23 07/25/23 18:23
[2023-07-26] MEDS ORDERED: METOPROLOL TARTRATE 25 MG TAB PO SCH (09:45)
[2023-07-26] MEDS ORDERED: lisinopriL 20 MG TAB PO SCH (09:45)
[2023-07-26] MEDS ORDERED: amLODIPine 5 MG TAB PO SCH (09:45)
[2023-07-26 09:51] LABS: Basophils # (A) 0.1 k/uL (0-0.2); Basophils % (A) 1 %; Eosinophils # (A) 0.1 k/uL (0-0.7); Eosinophils % (A) 1 %; HCT 42.8 % (34.0-46.0); HGB 14.6 gm/dL (11.4-16.0); Lymphocytes # (A) 1.9 k/uL (1.0-4.8); Lymphocytes % (A) 22 %; MCH 29.9 pg (25.0-35.0); MCHC 34.2 g/dL (31.0-37.0); MCV 87.4 fL (80.0-100.0); Monocytes # (A) 0.6 k/uL (0-1.0); Monocytes % (A) 7 %; Neutrophils # (A) 5.9 k/uL (1.3-7.7); Neutrophils % (A) 68 %; Platelet Count 268 k/uL (150-450); RDW 15.1 % (11.5-15.5); WBC 8.7 k/uL (3.8-10.6)
[2023-07-26 10:02] LABS: ALT 14 U/L (4-34); AST 24 U/L (14-36); African American GFR (CKD) >90 (>60 ml/min/1.73 sqM); Albumin 4.3 g/dL (3.5-5.0); Alkaline Phosphatase 96 U/L (38-126); Anion Gap 9 mmol/L; Blood Urea Nitrogen 8 mg/dL (7-17); Calcium 10.2 mg/dL (8.4-10.2); Carbon Dioxide 21 mmol/L (22-30); Chloride 112 mmol/L (98-107); Glucose 100 mg/dL (74-99); Magnesium 1.7 mg/dL (1.6-2.3); Non-African American GFR(CKD) >90 (>60 ml/min/1.73 sqM); Phosphorus 3.3 mg/dL (2.5-4.5); Potassium 3.8 mmol/L (3.5-5.1); Sodium 142 mmol/L (137-145); Total Bilirubin 0.6 mg/dL (0.2-1.3)
--- NOTE | 2023-07-26 10:28 | P.HPIM ---
History of Present Illness H&P Date: 07/26/23 Chief Complaint: Sent in from Dr. Ramirez's office related to HTN and bra dycardic This is a 73-year-old female with past medical history significant for COPD, diabetes mellitus, gastroesophageal reflux disease, CAD, hyperlipidemia, hypertension, carotid stenosis ,anxiety, panic disorder , ongoing nicotine dependence, hypothyroidism and multiple other medical issues, sent to the ER by her PCP Dr. Ramirez. Patient states she was at a scheduled CPS visit with Dr. Ramirez, had her vitals done, told she was bradycardic, to decrease her metoprolol dose in half and sent to the ER for further evaluation. troponin negative x 3. proBNP 405. EKG reported sinus with bigeminy. Electrolytes within normal limits. Asymptomatic .denies chest pain, palpitations or shortne ss of breath. Denies lightheadedness, dizziness or focal deficits. Denies syncope. Denies nausea, vomiting, diarrhea or abdominal pain.HR 94, RR 18, BP 147/87, maintaining O2 sat of 98% on room air. Chest x-ray reported no acute cardiopulmonary disease process.afebrile, WBC 8.2. Hemoglobin 14.5, Platelets 246, Sodium 141, Potassium 3.9, BUN 13, Creatinine 0.71. Review of Systems ROS Statement: Those systems with pertinent positive or pertinent negative responses have been documented in the HPI. ROS Other: All systems not noted in ROS Statement are negative. Past Medical History Past Medical History: Heart Failure, COPD, Diabetes Mellitus, GERD/Reflux, Hyperlipidemia, Hypertension, Pneumonia, Thyroid Disorder, Vascular Disorder Additional Past Medical History / Comment(s): NIDDM type II, bronchitis, R side carotid stenosis, osteoporosis, scoliosis, chronic pain bilateral hips/knees/ankles, hypothyroid History of Any Multi-Drug Resistant Organisms: None Reported Past Surgical History: Heart Catheterization Additional Past Surgical History / Comment(s): "pulled muscle in ribs" Past Anesthesia/Blood Transfusion Reactions: No Reported Reaction Additional Past Anesthesia/Blood Transfusion Reaction / Comment(s): PT HAS NEVER RECEIVED ANESTHESIA Past Psychological History: Anxiety, Panic Disorder Additional Psychological History / Comment(s): Pt resides with her 96 yr old mother. She assists her mother when needed. She uses no assistive device. She can drive, but does not own a car. She uses the bus system. Smoking Status: Current every day smoker Past Alcohol Use History: None Reported Additional Past Alcohol Use History / Comment(s): Pt started smoking about 1970 and smokes 2 ppd or a little more. Past Drug Use History: None Reported - Past Family History Mother Family Medical History: Thyroid Disorder Additional Family Medical History / Comment(s): hypothyroid Father Family Medical History: Myocardial Infarction ([place]) Additional Family Medical History / Comment(s): Father of a [place] before age 50 yrs. Brother(s) Additional Family Medical History / Comment(s): Crohns Medications and Allergies Home Medications Medication Instructions Recorded Confirmed Type traMADol HCL [Ultram] 50 - 100 mg PO BID 03/23/14 07/25/23 History Metoprolol Tartrate [Lopressor] 25 mg PO BID 09/17/15 07/25/23 History Pantoprazole Sodium 40 mg PO DAILY 11/29/15 07/25/23 History Atorvastatin [Lipitor] 40 mg PO HS 06/07/19 07/25/23 History lisinopriL [Zestril] 20 mg PO BID 06/07/19 07/25/23 History Levalbuterol Tartrate 2 puff INHALATION RT-Q4H PRN 07/21/19 07/25/23 History [Levalbuterol Tartrate 45 MCG Hfa] Aspirin 325 mg PO BID 07/27/19 07/25/23 History metFORMIN HCL ER [Glucophage XR] 1,000 mg PO DAILY@0800 07/27/19 07/25/23 H istory Levothyroxine Sodium [Levo-T] 150 mcg PO MOTHSA 05/09/22 07/25/23 History Levothyroxine Sodium [Synthroid] 75 mcg PO SUTUWEFR 05/09/22 07/25/23 History Calcium Carbonate [Calcium] 600 mg PO BID 07/25/23 07/25/23 History Umeclidinium Brm/Vilanterol Tr 1 puff INHALATION RT-DAILY 07/25/23 07/25/23 History [Anoro Ellipta 62.5-25 Mcg INH] amLODIPine [Norvasc] 5 mg PO DAILY 07/25/23 07/25/23 History traMADol HCL 50 - 100 mg PO DAILY PRN 07/25/23 07/25/23 History Nicotine 14Mg/24Hr Patch [Habitrol] 1 patch TRANSDERM DAILY patch 07/26/23 Rx Allergies Allergy/AdvReac Type Severity Reaction Status Date / Time azithromycin [From Zithromax] Allergy Rash/Hives Verified 07/25/23 20:45 clindamycin Allergy Rash/Hives Verified 07/25/23 20:45 Iodinated Contrast Media Allergy Rash/Hives Verified 07/25/23 20:45 adhesive tape AdvReac Severe bruises Verified 07/25/23 20:45 diphenhydramine HCl AdvReac Unknown KEEPS HER Verified 07/25/23 20:45 [From Benadryl] AWAKE. albuterol AdvReac Rapid Verified 07/25/23 20:45 Heart Rate bandaid AdvReac Severe bruise Uncoded 05/09/22 12:56 Physical Exam Vitals: Vital Signs Temp Pulse Resp BP Pulse Ox 07/26/23 05:00 94 18 147/87 98 07/26/23 01:30 81 18 145/91 98 07/25/23 23:00 90 18 163/67 97 07/25/23 21:30 96 18 162/77 96 07/25/23 21:00 82 18 183/70 95 07/25/23 19:29 90 18 202/75 96 07/25/23 18:11 97.6 F 44 L 16 158/72 98 Intake and Output 07/25/23 07/26/23 07/26/23 22:59 06:59 14:59 Other: Weight 62.142 kg PHYSICAL EXAM: VITAL SIGNS: As above GENERAL: Alert and oriented x 3 ,sitting up on stretcher, conversing fluently, without accessory muscle use, respiratory effort unlabored, no acute distress HEENT: Normocephalic ,conjunctivae normal. Sclerae anicteric. MMM. NECK: Supple, no JVD. No LNs CARDIOVASCULAR: S1, S2 regular. No murmur RESPIRATION: Unlabored, kyphosis .Essentially CTA,breath sounds diminished in t he bases. No rhonchi or crackles. ABDOMEN: Soft, nontender . No guarding. no masses palpable. No ascites, No hepatosplenomegaly.Bowel sounds heard. LEGS: No edema. no swelling, no calf tenderness. NERVOUS SYSTEM: Cranial N 2-12 grossly normal. Moves all 4 limbs. No focal deficits. Strength and sensation grossly intact. Skin warm and dry, no rash. Results CBC & Chem 7: 07/26/23 09:07 07/25/23 18:23 Labs: Abnormal Lab Results - Last 24 Hours (Table) 07/25/23 07/26/23 Range/Units 18:23 05:13 Chloride 112 H (98-107) mmol/L Glucose 116 H (74-99) mg/dL POC Glucose (mg/dL) 114 H (70-110) mg/dL Assessment and Plan Assessment: Bradycardia ruled out, telemetry reporting sinus rhythm with bigeminy, frequent PVCs COPD Diabetes mellitus Anxiety, panic disorder Gastroesophageal reflux disease Hypertension Hyperlipidemia Hypothyroidism Nicotine dependence, smoking cessation reinforced Plan: Continue on current medication regimen, monitoring and symptomatic treatment. Evaluated by cardiology with recommendations to continue current dose of metoprolol. Notified by cardiology that patient is cleared for discharge and that she has an appointment this afternoon with Dr. Sims, Cardiology. Patient will be discharged home today in a stable condition with guarded prognosis. Discharge Medication List traMADol HCL [Ultram] 50 - 100 mg PO BID 03/23/14 [History] Metoprolol Tartrate [Lopressor] 25 mg PO BID 09/17/15 [History] Pantoprazole Sodium 40 mg PO DAILY 11/29/15 [History] Atorvastatin [Lipitor] 40 mg PO HS 06/07/19 [History] lisinopriL [Zestril] 20 mg PO BID 06/07/19 [History] Levalbuterol Tartrate [Levalbuterol Tartrate 45 MCG Hfa] 2 puff INHALATION RT- Q4H PRN 07/21/19 [History] Aspirin 325 mg PO BID 07/27/19 [History] metFORMIN HCL ER [Glucophage XR] 1,000 mg PO DAILY@0800 07/27/19 [History] Levothyroxine Sodium [Levo-T] 150 mcg PO MOTHSA 05/09/22 [History] Levothyroxine Sodium [Synthroid] 75 mcg PO SUTUWEFR 05/09/22 [History] Calcium Carbonate [Calcium] 600 mg PO BID 07/25/23 [History] Umeclidinium Brm/Vilanterol Tr [Anoro Ellipta 62.5-25 Mcg INH] 1 puff INHALATION RT-DAILY 07/25/23 [History] amLODIPine [Norvasc] 5 mg PO DAILY 07/25/23 [History] traMADol HCL 50 - 100 mg PO DAILY PRN 07/25/23 [History] Nicotine 14Mg/24Hr Patch [Habitrol] 1 patch TRANSDERM DAILY patch 07/26/23 [Rx] The impression and plan of care has been dictated as directed. : I performed a history and examination of this patient, discussed the same with the dictator. I agree with the dictator's note ,documented as a scribe. Any additional findings or plans will be noted.
[2023-07-26 11:01] VITALS: BP 134/78; PULSE 78; RESP 20
[2023-07-26] MEDS ORDERED: ATORVASTATIN 40 MG TAB PO SCH (21:00)
== END 2023-07-26 10:57 | disposition home or self-care (01) | DRG 310 ==
LOC: EC 18:06 → 3SCARD 20:22
PROVIDERS: ADMIT Family Medicine; ATTEND Family Medicine
DX: I49.3 Ventricular premature depolarization (principal); I11.0 Hypertensive heart disease with heart failure; J44.9 Chronic obstructive pulmonary disease, unspecified; E11.9 Type 2 diabetes mellitus without complications; E03.9 Hypothyroidism, unspecified; I08.1 Rheumatic disorders of both mitral and tricuspid valves; E78.5 Hyperlipidemia, unspecified; I25.10 Atherosclerotic heart disease of native coronary artery without angina pectoris; K21.9 Gastro-esophageal reflux disease without esophagitis; F17.210 Nicotine dependence, cigarettes, uncomplicated; M81.0 Age-related osteoporosis without current pathological fracture; F41.0 Panic disorder [episodic paroxysmal anxiety]; G89.29 Other chronic pain; Z82.49 Family history of ischemic heart disease and other diseases of the circulatory system; Z79.82 Long term (current) use of aspirin; Z79.84 Long term (current) use of oral hypoglycemic drugs; Z79.890 Hormone replacement therapy; Z79.899 Other long term (current) drug therapy; Z88.1 Allergy status to other antibiotic agents; Z91.041 Radiographic dye allergy status; Z91.048 Other nonmedicinal substance allergy status; Z88.8 Allergy status to other drugs, medicaments and biological substances; I50.9 Heart failure, unspecified
CPT/HCPCS: 36415; 71046; 80053; 83735; 83880; 84100; 84484; 85025; 93005; 96374; 96375; 99291

== ENCOUNTER 2023-08-02 21:26 | Emergency (ER) | payer MEDICARE, OTHER ==
--- NOTE | 2023-08-02 21:50 | ED ---
General Adult HPI - General Stated complaint: Weakness, diarrhea, SOB Time Seen by Provider: 08/02/23 21:49 Source: patient Mode of arrival: wheelchair - History of Present Illness Initial comments: 73-year-old female with history of COPD, diabetes, heart failure, hypertension, hyperlipidemia, current pack per day smoker presenting with chief complaint of shortness of breath. Patient states that she has been having cough and shortness of breath for several days. She admits to some chest wall and abd ominal wall soreness with coughing. She was brought in by EMS today. She denies chest pain, nausea, vomiting, palpitations, numbness, tingling, weakness. She was placed on oxygen by EMS. She does not wear oxygen at home. - Related Data Home Medications Medication Instructions Recorded Confirmed traMADol HCL [Ultram] 50 - 100 mg PO BID 03/23/14 07/25/23 Metoprolol Tartrate [Lopressor] 25 mg PO BID 09/17/15 07/25/23 Pantoprazole Sodium 40 mg PO DAILY 11/29/15 07/25/23 Atorvastatin [Lipitor] 40 mg PO HS 06/07/19 07/25/23 lisinopriL [Zestril] 20 mg PO BID 06/07/19 07/25/23 Levalbuterol Tartrate 2 puff INHALATION RT-Q4H PRN 07/21/19 07/25/23 [Levalbuterol Tartrate 45 MCG Hfa] Aspirin 325 mg PO BID 07/27/19 07/25/23 metFORMIN HCL ER [Glucophage XR] 1,000 mg PO DAILY@0800 07/27/19 07/25/23 Levothyroxine Sodium [Levo-T] 150 mcg PO MOTHSA 05/09/22 07/25/23 Levothyroxine Sodium [Synthroid] 75 mcg PO SUTUWEFR 05/09/22 07/25/23 Calcium Carbonate [Calcium] 600 mg PO BID 07/25/23 07/25/23 Umeclidinium Brm/Vilanterol Tr 1 puff INHALATION RT-DAILY 07/25/23 07/25/23 [Anoro Ellipta 62.5-25 Mcg INH] amLODIPine [Norvasc] 5 mg PO DAILY 07/25/23 07/25/23 traMADol HCL 50 - 100 mg PO DAILY PRN 07/25/23 07/25/23 Previous Rx's Medication Instructions Recorded Nicotine 14Mg/24Hr Patch [Habitrol] 1 patch TRANSDERM DAILY patch 07/26/23 Levalbuterol Tartrate 2 puff INHALATION RT-Q4H PRN #15 gm 08/03/23 [Levalbuterol Tartrate 45 MCG Hfa] predniSONE [Deltasone] 60 mg PO DAILY 5 Days #15 tab 08/03/23 Allergies Allergy/AdvReac Type Severity Reaction Status Date / Time azithromycin [From Zithromax] Allergy Rash/Hives Verified 08/02/23 22:06 clindamycin Allergy Rash/Hives Verified 08/02/23 22:06 Iodinated Contrast Media Allergy Rash/Hives Verified 08/02/23 22:06 adhesive tape AdvReac Severe bruises Verified 08/02/23 22:06 diphenhydramine HCl AdvReac Unknown KEEPS HER Verified 08/02/23 22:06 [From Benadryl] AWAKE. albuterol AdvReac Rapid Verified 08/02/23 22:06 Heart Rate bandaid AdvReac Severe bruise Uncoded 08/02/23 22:06 Review of Systems ROS Statement: Those systems with pertinent positive or pertinent negative responses have been documented in the HPI. ROS Other: All systems not noted in ROS Statement are negative. Past Medical History Past Medical History: Heart Failure, COPD, Diabetes Mellitus, GERD/Reflux, Hyperlipidemia, Hypertension, Pneumonia, Thyroid Disorder, Vascular Disorder Additional Past Medical History / Comment(s): NIDDM type II, bronchitis, R side caratid stenosis, osteoporosis, scoliosis, chronic pain bilateral hips/knees/ankles and rivs, hypothyroid, History of Any Multi-Drug Resistant Organisms: None Reported Past Surgical History: No Surgical Hx Reported Additional Past Surgical History / Comment(s): "pulled muscle in ribs" Past Anesthesia/Blood Transfusion Reactions: No Reported Reaction Additional Past Anesthesia/Blood Transfusion Reaction / Comment(s): PT HAS NEVER RECEIVED ANESTHESIA Past Psychological History: Anxiety, Panic Disorder Smoking Status: Current every day smoker Past Alcohol Use History: None Reported Past Drug Use History: None Reported - Past Family History Mother Family Medical History: Thyroid Disorder Additional Family Medical History / Comment(s): hypothyroid Father Family Medical History: Myocardial Infarction (MT) Additional Family Medical History / Comment(s): Father of a MT before age 50 yrs. Brother(s) Additional Family Medical History / Comment(s): Chrons General Exam - General Exam Comments Initial Comments: Visual Physical Exam Vital signs reviewed General: Well-appearing, nontoxic, no acute distress. Head: Normocephalic, atraumatic Eyes: PERRLA, EOMI ENT: Airway patent Chest: Nonlabored breathing Skin: No visual rash, normal skin tone Neuro: Alert and oriented 3 Musculoskeletal: No gross abnormalities Limitations: no limitations General appearance: alert, in no apparent distress Head exam: Present: atraumatic, normocephalic, normal inspection Eye exam: Present: normal appearance Neck exam: Present: normal inspection Respiratory exam: Present: wheezes. Absent: respiratory distress, rales, rhonchi, stridor Cardiovascular Exam: Present: regular rate, normal rhythm, normal heart sounds. Absent: systolic murmur, diastolic murmur, rubs, gallop, clicks Neurological exam: Present: alert, oriented X3 Psychiatric exam: Present: normal affect, normal mood Skin exam: Present: warm, dry Course Vital Signs 08/02/23 22:05 Temperature 98 F Pulse Rate 42 L Respiratory 18 Rate Blood Pressure 158/90 O2 Sat by Pulse 95 Oximetry EKG Findings - EKG Comments: EKG Findings:: Sinus rhythm with frequent ventricular premature complexes. Ventricular rate 77. IL interval 147. QRS 97. QT 405. QTc 437. No acute changes from previous EKG Medical Decision Making - Medical Decision Making Was pt. sent in by a medical professional or institution (, PA, PROFESSOR OF ARCHITECTURE, urgent care, hospital, or [facility]...) When possible be specific @ -No Did you speak to anyone other than the patient for history (EMS, parent, family, police, friend...)? What history was obtained from this source @ -No Did you review nursing and triage notes (agree or disagree)? Why? @ -I reviewed and agree with nursing and triage notes Were old charts reviewed (outside hosp., previous admission, EMS record, old EKG, old radiological studies, urgent care reports/EKG's, [facility] records)? Report findings @ -Patient's most recent admission was reviewed, she was admitted for bradycardia, she was evaluated by cardiology and found to have no severe episodes of bradycardia, and she remained asymptomatic throughout her course. She was cleared by cardiology and discharged home Differential Diagnosis (chest pain, altered mental status, abdominal pain women, abdominal pain men, vaginal bleeding, weakness, fever, dyspnea, syncope, headache, dizziness, GI bleed, back pain, seizure, CVA, palpatations, mental health, musculoskeletal)? @ -[facility] Differential Dyspnea: Coronary syndrome, arrhythmia, tamponade, asthma, COPD, pulmonary embolism, pneumonia, pneumothorax, pulmonary effusion, anaphylaxis, diabetic ketoacidosis, flailed chest, pulmonary contusion, diaphragmatic rupture, anemia, neuromuscular this is not meant to be an all-inclusive list. EKG interpreted by me (3pts min.). @ -As above X-rays interpreted by me (1pt min.). @ -Chest x-ray shows no acute findings in the chest CT interpreted by me (1pt min.). @ -None done U/S interpreted by me (1pt. min.). @ -None done What testing was considered but not performed or refused? (CT, X-rays, U/S, labs)? Why? @ -None What meds were considered but not given or refused? Why? @ -DuoNeb breathing treatment was ordered, patient refused multiple times stating that she does not take albuterol because it causes tachycardia Did you discuss the management of the patient with other professionals (professionals i.e. , PA, PROFESSOR OF ARCHITECTURE, lab, RT, psych nurse, social service liaison, renewable energy broker, teacher, juvenile probation officer, family service caseworker)? Give summary @ -No Was smoking cessation discussed for >3mins.? @ -I counseled the patient for smoking cessation for greater than 3 minutes Was critical care preformed (if so, how long)? @ -No Were there social determinants of health that impacted care today? How? (Homelessness, low income, unemployed, alcoholism, drug addiction, tr ansportation, low edu. Level, literacy, decrease access to med. care, senior living, rehab)? @ -No Was there de-escalation of care discussed even if they declined (Discuss DNR or withdrawal of care, Hospice)? DNR status @ -No What co-morbidities impacted this encounter? (DM, HTN, Smoking, COPD, CAD, Cancer, CVA, ARF, Chemo, Hep., AIDS, mental health diagnosis, sleep apnea, morbid obesity)? @ -COPD, smoking Was patient admitted / discharged? Hospital course, mention meds given and route, prescriptions, significant lab abnormalities, going to OR and other pertinent info. @ -73-year-old female presented chief complaint of shortness of breath. Patient has history of COPD and is an everyday smoker. She was started on oxygen via nasal cannula by EMS. Workup is initiated by triage. Lab work shows no leukocytosis or anemia. BUN 28 glucose 102 AST 44. Negative troponin. Patient is positive for influenza A. Negative for influenza B, RSV, and COVID. Chest x-ray shows no acute process. EKG shows sinus rhythm with frequent ventricular premature complexes, this shows no acute changes from previous EKG. Solu-Medrol 125 mg and DuoNeb breathing treatment ordered. Patient refuses DuoNeb on multiple occasions stating that she will not take albuterol and will only take her levalbuterol inhaler due to previous episode of tachycardia. Patient was recently admitted to our facility for bradycardia and discharged on 07/26. She was evaluated by cardiology and instructed to continue her regular medications and follow-up with her PCP and manager family, cleared for discharge by cardiology. I offered the patient admission, she declined. Her oxygen is staying above 90% on room air. She is educated on supportive management of influenza, and prescribed a course of prednisone and refill on her lev albuterol inhaler. Discharged home. Follow-up with PCP. Report back to ER with any new or worsening symptoms. Discussed return parameters and answered all questions. Patient conveyed verbal understanding and agreed to the plan. I discussed this case in detail with my attending Dr. Linder Undiagnosed new problem with uncertain prognosis? @ -No Drug Therapy requiring intensive monitoring for toxicity (Heparin, Nitro, Insulin, Cardizem)? @ -No Were any procedures done? @ -No Diagnosis/symptom? @ -Influenza A, COPD exacerbation Acute, or Chronic, or Acute on Chronic? @ -Acute Uncomplicated (without systemic symptoms) or Complicated (systemic symptoms)? @ -Complicated Side effects of treatment? @ -No Exacerbation, Progression, or Severe Exacerbation? - Lab Data Result diagrams: 08/03/23 00:07 08/03/23 00:07 Lab Results 08/03/23 08/03/23 08/03/23 Range/Units 00:07 00:07 00:07 WBC 9.9 (3.8-10.6) k/uL RBC 5.07 (3.80-5.40) m/uL Hgb 14.5 (11.4-16.0) gm/dL Hct 44.2 (34.0-46.0) % MCV 87.2 (80.0-100.0) fL MCH 28.5 (25.0-35.0) pg MCHC 32.7 (31.0-37.0) g/dL RDW 14.7 (11.5-15.5) % Plt Count 238 (150-450) k/uL MPV 8.2 Neutrophils % 72 % Lymphocytes % 17 % Monocytes % 6 % Eosinophils % 0 % Basophils % 1 % Neutrophils # 7.2 (1.3-7.7) k/uL Lymphocytes # 1.7 (1.0-4.8) k/uL Monocytes # 0.6 (0-1.0) k/uL Eosinophils # 0.0 (0-0.7) k/uL Basophils # 0.1 (0-0.2) k/uL PT 10.5 (10.0-12.5) sec INR 0.9 (<1.2) APTT 23.3 (22.0-30.0) sec Sodium 138 (137-145) mmol/L Potassium 4.1 (3.5-5.1) mmol/L Chloride 106 (98-107) mmol/L Carbon Dioxide 22 (22-30) mmol/L Anion Gap 10 mmol/L BUN 28 H (7-17) mg/dL Creatinine 0.99 (0.52-1.04) mg/dL Est GFR (CKD-EPI)AfAm 66 (>60 ml/min/1.73 sqM) Est GFR (CKD-EPI)NonAf 57 (>60 ml/min/1.73 sqM) Glucose 102 H (74-99) mg/dL Calcium 9.4 (8.4-10.2) mg/dL Total Bilirubin 0.5 (0.2-1.3) mg/dL AST 44 H (14-36) U/L ALT 21 (4-34) U/L Alkaline Phosphatase 97 (38-126) U/L Troponin I (0.000-0.034) ng/mL Total Protein 6.4 (6.3-8.2) g/dL Albumin 3.6 (3.5-5.0) g/dL Amylase 53 (30-110) U/L Lipase 90 (23-300) U/L Influenza Type A (PCR) (Not Detectd) Influenza Type B (PCR) (Not Detectd) RSV (PCR) (Not Detectd) SARS-CoV-2 (PCR) (Not Detectd) 08/03/23 08/03/23 Range/Units 00:07 00:07 WBC (3.8-10.6) k/uL RBC (3.80-5.40) m/uL Hgb (11.4-16.0) gm/dL Hct (34.0-46.0) % MCV (80.0-100.0) fL MCH (25.0-35.0) pg MCHC (31.0-37.0) g/dL RDW (11.5-15.5) % Plt Count (150-450) k/uL MPV Neutrophils % % Lymphocytes % % Monocytes % % Eosinophils % % Basophils % % Neutrophils # (1.3-7.7) k/uL Lymphocytes # (1.0-4.8) k/uL Monocytes # (0-1.0) k/uL Eosinophils # (0-0.7) k/uL Basophils # (0-0.2) k/uL PT (10.0-12.5) sec INR (<1.2) APTT (22.0-30.0) sec Sodium (137-145) mmol/L Potassium (3.5-5.1) mmol/L Chloride (98-107) mmol/L Carbon Dioxide (22-30) mmol/L Anion Gap mmol/L BUN (7-17) mg/dL Creatinine (0.52-1.04) mg/dL Est GFR (CKD-EPI)AfAm (>60 ml/min/1.73 sqM) Est GFR (CKD-EPI)NonAf (>60 ml/min/1.73 sqM) Glucose (74-99) mg/dL Calcium (8.4-10.2) mg/dL Total Bilirubin (0.2-1.3) mg/dL AST (14-36) U/L ALT (4-34) U/L Alkaline Phosphatase (38-126) U/L Troponin I <0.012 (0.000-0.034) ng/mL Total Protein (6.3-8.2) g/dL Albumin (3.5-5.0) g/dL Amylase (30-110) U/L Lipase (23-300) U/L Influenza Type A (PCR) Detected A (Not Detectd) Influenza Type B (PCR) Not Detected (Not Detectd) RSV (PCR) Not Detected (Not Detectd) SARS-CoV-2 (PCR) Not Detected (Not Detectd) Disposition Clinical Impression: Influenza, COPD exacerbation Disposition: HOME SELF-CARE Condition: Fair Instructions (If sedation given, give patient instructions): Influenza (ED), COPD (Chronic Obstructive Pulmonary Disease) (ED) Additional Instructions: Follow-up with PCP. Report back to ER with any new or worsening symptoms. Take medication as prescribed. Prescriptions: predniSONE [Deltasone] 60 mg PO DAILY 5 Days #15 tab Levalbuterol Tartrate [Levalbuterol Tartrate 45 MCG Hfa] 2 puff INHALATION RT- Q4H PRN #15 gm PRN Reason: Shortness Of Breath Is patient prescribed a controlled substance at d/c from ED?: No Referrals: Zach Ramirez MD [Primary Care Provider] - 1-2 days Time of Disposition: 03:13
[2023-08-02 22:36] VITALS: BP 158/90; PULSE 42; RESP 18; TEMP 98
--- NOTE | 2023-08-02 22:56 | XR ---
EXAM: XR Chest, 2 Views CLINICAL HISTORY: ITS.REASON XR Reason: altered mental status TECHNIQUE: Frontal and lateral views of the chest. COMPARISON: No relevant prior studies available. FINDINGS: Lungs: Findings suggestive of emphysema and chronic obstructive pulmonary disease. No consolidation. Pleural space: Unremarkable. No pleural effusion or pneumothorax. Heart: Unremarkable. No cardiomegaly or pulmonary vascular congestion. Bones/joints: Osteopenia. Increased thoracic kyphosis. No acute osseous findings. IMPRESSION: No acute findings in the chest.
[2023-08-03 00:45] LABS: Basophils # (A) 0.1 k/uL (0-0.2); Basophils % (A) 1 %; Eosinophils % (A) 0 %; HCT 44.2 % (34.0-46.0); HGB 14.5 gm/dL (11.4-16.0); Lymphocytes # (A) 1.7 k/uL (1.0-4.8); Lymphocytes % (A) 17 %; MCH 28.5 pg (25.0-35.0); MCHC 32.7 g/dL (31.0-37.0); MCV 87.2 fL (80.0-100.0); Mean Platelet Volume 8.2; Monocytes # (A) 0.6 k/uL (0-1.0); Monocytes % (A) 6 %; Neutrophils # (A) 7.2 k/uL (1.3-7.7); Neutrophils % (A) 72 %; Platelet Count 238 k/uL (150-450); RBC 5.07 m/uL (3.80-5.40); RDW 14.7 % (11.5-15.5); WBC 9.9 k/uL (3.8-10.6)
[2023-08-03 00:52] LABS: INR 0.9 (<1.2); Partial Thromboplastin Time 23.3 sec (22.0-30.0); Prothrombin Time 10.5 sec (10.0-12.5)
[2023-08-03 00:55] LABS: ALT 21 U/L (4-34); AST 44 U/L (14-36); African American GFR (CKD) 66 (>60 ml/min/1.73 sqM); Albumin 3.6 g/dL (3.5-5.0); Alkaline Phosphatase 97 U/L (38-126); Amylase 53 U/L (30-110); Anion Gap 10 mmol/L; Blood Urea Nitrogen 28 mg/dL (7-17); Calcium 9.4 mg/dL (8.4-10.2); Carbon Dioxide 22 mmol/L (22-30); Chloride 106 mmol/L (98-107); Glucose 102 mg/dL (74-99); Lipase 90 U/L (23-300); Non-African American GFR(CKD) 57 (>60 ml/min/1.73 sqM); Potassium 4.1 mmol/L (3.5-5.1); Sodium 138 mmol/L (137-145); Total Bilirubin 0.5 mg/dL (0.2-1.3); Total Protein 6.4 g/dL (6.3-8.2)
[2023-08-03] MEDS: IPRATROPIUM-ALBUTEROL 3 ML NEB INHALATION STA (01:48)
[2023-08-03] MEDS: methylPREDNISolone SOD SUCCI 125 MG/2 ML VIAL IM ONE (04:13)
== END 2023-08-03 04:18 | disposition home or self-care (01) ==
LOC: EC 21:26
DX: J10.1 Influenza due to other identified influenza virus with other respiratory manifestations (principal); J44.1 Chronic obstructive pulmonary disease with (acute) exacerbation; E03.9 Hypothyroidism, unspecified; E11.9 Type 2 diabetes mellitus without complications; E78.5 Hyperlipidemia, unspecified; I11.0 Hypertensive heart disease with heart failure; I50.9 Heart failure, unspecified; K21.9 Gastro-esophageal reflux disease without esophagitis; F41.9 Anxiety disorder, unspecified; F17.200 Nicotine dependence, unspecified, uncomplicated; Z79.84 Long term (current) use of oral hypoglycemic drugs; Z79.82 Long term (current) use of aspirin; Z79.899 Other long term (current) drug therapy; Z88.1 Allergy status to other antibiotic agents; Z88.8 Allergy status to other drugs, medicaments and biological substances; Z91.041 Radiographic dye allergy status; Z20.822 Contact with and (suspected) exposure to COVID-19
CPT/HCPCS: 99285; 96372; 36415; 93005; 80053; 82150; 83690; 84484; 85025; 85610; 85730; 87636; 71046; J2930

== ENCOUNTER 2023-08-04 19:48 | Observation (INO) | payer MEDICARE, OTHER ==
--- NOTE | 2023-08-04 20:13 | ED ---
General Adult HPI - General Chief complaint: Upper Respiratory Infection Stated complaint: SOB Time Seen by Provider: 08/04/23 19:56 Source: patient, EMS, RN notes reviewed Mode of arrival: EMS Limitations: no limitations - History of Present Illness Initial comments: 73-year-old female presents to the emergency department via EMS for evaluation of cough, diarrhea, shortness of breath. Patient states that she is had diarrhea since she has been discharged from the hospital around 25 July. She reports that she was here 2 days ago and was diagnosed with influenza. She states that she contacted her primary care provider and was told to start Wong iflu. She has not taken this yet. Past medical history includes COPD, diabetes, hypertension. She reports that she has been using her levalbuterol inhaler every 4 hours. She states that she cannot have albuterol because it causes her to become tachycardic. She denies fever, chills. She admits to 1 episode of vomiting. She denies any abdominal pain. She is currently on oral prednisone and tamiflu. - Related Data Home Medications Medication Instructions Recorded Confirmed traMADol HCL [Ultram] 50 - 100 mg PO BID 03/23/14 08/04/23 Metoprolol Tartrate [Lopressor] 25 mg PO BID 09/17/15 08/04/23 Pantoprazole Sodium 40 mg PO DAILY 11/29/15 08/04/23 Atorvastatin [Lipitor] 40 mg PO HS 06/07/19 08/04/23 lisinopriL [Zestril] 20 mg PO BID 06/07/19 08/04/23 Aspirin 325 mg PO BID 07/27/19 08/04/23 metFORMIN HCL ER [Glucophage XR] 1,000 mg PO DAILY@0800 07/27/19 08/04/23 Levothyroxine Sodium [Levo-T] 150 mcg PO MOTHSA 05/09/22 08/04/23 Levothyroxine Sodium [Synthroid] 75 mcg PO SUTUWEFR 05/09/22 08/04/23 Calcium Carbonate [Calcium] 600 mg PO BID 07/25/23 08/04/23 Umeclidinium Brm/Vilanterol Tr 1 puff INHALATION RT-DAILY 07/25/23 08/04/23 [Anoro Ellipta 62.5-25 Mcg INH] amLODIPine [Norvasc] 5 mg PO DAILY 07/25/23 08/04/23 traMADol HCL 50 - 100 mg PO DAILY PRN 07/25/23 08/04/23 Previous Rx's Medication Instructions Recorded Nicotine 14Mg/24Hr Patch [Habitrol] 1 patch TRANSDERM DAILY patch 07/26/23 Levalbuterol Tartrate 2 puff INHALATION RT-Q4H PRN #15 gm 08/03/23 [Levalbuterol Tartrate 45 MCG Hfa] Loperamide [Imodium] 2 mg PO QID #12 capsule 08/04/23 Oseltamivir 6Mg/ml Oral Susp 30 mg PO Q12HR #7 each 08/06/23 [Tamiflu] predniSONE [Deltasone] 60 mg PO DAILY 5 Days #15 tab 08/06/23 Allergies Allergy/AdvReac Type Severity Reaction Status Date / Time azithromycin [From Zithromax] Allergy Rash/Hives Verified 08/04/23 21:58 clindamycin Allergy Rash/Hives Verified 08/04/23 21:58 Iodinated Contrast Media Allergy Rash/Hives Verified 08/04/23 21:58 adhesive tape AdvReac Severe bruises Verified 08/04/23 21:58 diphenhydramine HCl AdvReac Unknown KEEPS HER Verified 08/04/23 21:58 [From Benadryl] AWAKE. albuterol AdvReac Rapid Verified 08/04/23 21:58 Heart Rate, uses Levalbuterol bandaid AdvReac Severe bruise Uncoded 08/02/23 22:06 Review of Systems ROS Statement: Those systems with pertinent positive or pertinent negative responses have been documented in the HPI. ROS Other: All systems not noted in ROS Statement are negative. Past Medical History Past Medical History: Heart Failure, COPD, Diabetes Mellitus, GERD/Reflux, Hyperlipidemia, Hypertension, Pneumonia, Thyroid Disorder, Vascular Disorder Additional Past Medical History / Comment(s): NIDDM type II, bronchitis, R side caratid stenosis, osteoporosis, scoliosis, chronic pain bilateral hips/kne es/ankles and rivs, hypothyroid, History of Any Multi-Drug Resistant Organisms: None Reported Past Surgical History: No Surgical Hx Reported Additional Past Surgical History / Comment(s): "pulled muscle in ribs" Past Anesthesia/Blood Transfusion Reactions: No Reported Reaction Additional Past Anesthesia/Blood Transfusion Reaction / Comment(s): PT HAS NEVER RECEIVED ANESTHESIA Past Psychological History: Anxiety, Panic Disorder Smoking Status: Current every day smoker Past Alcohol Use History: None Reported Past Drug Use History: None Reported - Past Family History Mother Family Medical History: Thyroid Disorder Additional Family Medical History / Comment(s): hypothyroid Father Family Medical History: Myocardial Infarction ([place]) Additional Family Medical History / Comment(s): Father of a [place] before age 50 yrs. Brother(s) Additional Family Medical History / Comment(s): Chrons General Exam Limitations: no limitations General appearance: alert, in no apparent distress Head exam: Present: atraumatic, normocephalic, normal inspection Eye exam: Present: normal appearance, PERRL, EOMI. Absent: scleral icterus, conjunctival injection, periorbital swelling ENT exam: Present: normal exam, mucous membranes moist Neck exam: Present: normal inspection. Absent: tenderness, meningismus, lymphadenopathy Respiratory exam: Present: wheezes. Absent: respiratory distress, rales, rhonchi, stridor, chest wall tenderness, accessory muscle use Cardiovascular Exam: Present: regular rate, normal rhythm, normal heart sounds. Absent: systolic murmur, diastolic murmur, rubs, gallop, clicks GI/Abdominal exam: Present: soft, hyperactive bowel sounds. Absent: distended, tenderness, guarding, rebound, rigid Extremities exam: Present: normal inspection, full ROM, normal capillary refill. Absent: tenderness, pedal edema, joint swelling, calf tenderness Back exam: Present: normal inspection Neurological exam: Present: alert, oriented X3 Psychiatric exam: Present: normal affect, normal mood Skin exam: Present: warm, dry, intact, normal color. Absent: rash Course Vital Signs 08/04/23 08/04/23 08/05/23 19:49 21:14 00:49 Temperature 97.6 F 97.6 F Pulse Rate 68 68 Pulse Rate [ 71 Pulse Oximetery ] Respiratory 18 18 16 Rate Blood Pressure 135/85 114/69 Blood Pressure 139/82 [Left Arm] O2 Sat by Pulse 95 95 93 L Oximetry Medical Decision Making - Medical Decision Making Was pt. sent in by a medical professional or institution (, PA, PERFORMANCE IMPROVEMENT MANAGER, urgent care, hospital, or group home...) When possible be specific @ -No Did you speak to anyone other than the patient for history (EMS, parent, family, police, friend...)? What history was obtained from this source @ -EMS Did you review nursing and triage notes (agree or disagree)? Why? @ -I reviewed and agree with nursing and triage notes Were old charts reviewed (outside hosp., previous admission, EMS record, old EKG, old radiological studies, urgent care reports/EKG's, group home records)? Report findings @ -No old charts were reviewed Differential Diagnosis (chest pain, altered mental status, abdominal pain women, abdominal pain men, vaginal bleeding, weakness, fever, dyspnea, syncope, headache, dizziness, GI bleed, back pain, seizure, CVA, palpatations, mental health, musculoskeletal)? @ -COVID, influenza, RSV, pneumonia, viral gastroenteritis, Cdiff, this list is not inclusive EKG interpreted by me (3pts min.). @ -None X-rays interpreted by me (1pt min.). @ -Chest x-ray shows no acute infiltrate CT interpreted by me (1pt min.). @ -None done U/S interpreted by me (1pt. min.). @ -None done What testing was considered but not performed or refused? (CT, X-rays, U/S, labs)? Why? @ -None What meds were considered but not given or refused? Why? @ -None Did you discuss the management of the patient with other professionals (professionals i.e. , PA, PERFORMANCE IMPROVEMENT MANAGER, lab, RT, psych nurse, social media senior associate, manager interventional, te acher, coastal/harbor defense officer, renal case manager)? Give summary @ -Management discussed with patient's primary care provider, Dr. Ramirez, recommended ipratropium breathing treatment and another dose of Solu-Medrol. Patient is taking her oral prednisone and has taken 2 doses since she has been here. Therefore the Solu-Medrol was given. Recommends attempted discharge if improvement otherwise will accept the admission. Was smoking cessation discussed for >3mins.? @ -No Was critical care preformed (if so, how long)? @ -No Were there social determinants of health that impacted care today? How? (Homeles sness, low income, unemployed, alcoholism, drug addiction, transportation, low edu. Level, literacy, decrease access to med. care, usp, rehab)? @ -No Was there de-escalation of care discussed even if they declined (Discuss DNR or withdrawal of care, Hospice)? DNR status @ -No What co-morbidities impacted this encounter? (DM, HTN, Smoking, COPD, CAD, Cancer, CVA, ARF, Chemo, Hep., AIDS, mental health diagnosis, sleep apnea, morbid obesity)? @ -None Was patient admitted / discharged? Hospital course, mention meds given and route, prescriptions, significant lab abnormalities, going to OR and other pertinent info. @ -Presented to the emergency department for evaluation of diarrhea. Patient was diagnosed with influenza A. She has been taking prednisone and Tamiflu. She reports continued diarrhea. She also admits to mild shortness of breath. Patient given dose of Imodium. Laboratory studies obtained which remain unchanged from 2 days ago. Influenza A positive. Negative for COVID, RSV, influenza B. Patient also given 500 cc of normal saline. Case was discussed with Dr. Ramirez recommended trying ipratropium and levalbuterol nebulized. We do not have levalbuterol. Patient refused ipratropium nebulized solution because she states it is not time for her nebulizer. She did not receive the Solu-Medrol as she took 3 of her prednisone's. Patient does not feel comfortable for discharge as she is generally weak and feels that she cannot walk herself to the bathroom. She reports that she has not been eating or drinking well and continues to have diarrhea. Patient will be admitted for observation. Patient stable at time of admission. Case discussed with Dr. Benitez Undiagnosed new problem with uncertain prognosis? @ -No Drug Therapy requiring intensive monitoring for toxicity (Heparin, Nitro, Insulin, Cardizem)? @ -No Were any procedures done? @ -No Diagnosis/symptom? @ -Influenza A, diarrhea Acute, or Chronic, or Acute on Chronic? @ -Acute Uncomplicated (without systemic symptoms) or Complicated (systemic symptoms)? @ -Uncomplicated Side effects of treatment? @ -No Exacerbation, Progression, or Severe Exacerbation? @ -No Poses a threat to life or bodily function? How? (Chest pain, [place], [place], pneumonia, PE, COPD, DKA, ARF, appy, cholecystitis, CVA, Diverticulitis, Homicidal, Suicidal, threat to staff... and all critical care pts) @ -No - Lab Data Result diagrams: 08/06/23 06:19 08/06/23 06:19 Lab Results 08/04/23 08/04/23 08/04/23 Range/Units 20:11 20:25 20:25 WBC 12.3 H (3.8-10.6) k/uL RBC 5.00 (3.80-5.40) m/uL Hgb 14.6 (11.4-16.0) gm/dL Hct 42.8 (34.0-46.0) % MCV 85.5 (80.0-100.0) fL MCH 29.2 (25.0-35.0) pg MCHC 34.1 (31.0-37.0) g/dL RDW 14.4 (11.5-15.5) % Plt Count 339 (150-450) k/uL MPV 7.5 Neutrophils % 89 % Lymphocytes % 6 % Monocytes % 4 % Eosinophils % 0 % Basophils % 0 % Neutrophils # 11.0 H (1.3-7.7) k/uL Lymphocytes # 0.7 L (1.0-4.8) k/uL Monocytes # 0.5 (0-1.0) k/uL Eosinophils # 0.0 (0-0.7) k/uL Basophils # 0.0 (0-0.2) k/uL Sodium 139 (137-145) mmol/L Potassium 4.1 (3.5-5.1) mmol/L Chloride 108 H (98-107) mmol/L Carbon Dioxide 22 (22-30) mmol/L Anion Gap 9 mmol/L BUN 33 H (7-17) mg/dL Creatinine 0.99 (0.52-1.04) mg/dL Est GFR (CKD-EPI)AfAm 66 (>60 ml/min/1.73 sqM) Est GFR (CKD-EPI)NonAf 57 (>60 ml/min/1.73 sqM) Glucose 126 H (74-99) mg/dL Calcium 9.8 (8.4-10.2) mg/dL Total Bilirubin 0.4 (0.2-1.3) mg/dL AST 34 (14-36) U/L ALT 23 (4-34) U/L Alkaline Phosphatase 91 (38-126) U/L Total Protein 6.4 (6.3-8.2) g/dL Albumin 3.7 (3.5-5.0) g/dL Urine Color Urine Appearance (Clear) Urine pH (5.0-8.0) Ur Specific [place] (1.001-1.035) Urine Protein (Negative) Urine Glucose (UA) (Negative) Urine Ketones (Negative) Urine Blood (Negative) Urine Nitrite (Negative) Urine Bilirubin (Negative) Urine Urobilinogen (<2.0) mg/dL Ur Leukocyte Esterase (Negative) Urine RBC (0-5) /hpf Urine WBC (0-5) /hpf Ur Squamous Epith Cells (0-4) /hpf Urine Bacteria (None) /hpf Hyaline Casts (0-2) /lpf Urine Mucus (None) /hpf Influenza Type A (PCR) Detected A (Not Detectd) Influenza Type B (PCR) Not Detected (Not Detectd) RSV (PCR) Not Detected (Not Detectd) SARS-CoV-2 (PCR) Not Detected (Not Detectd) 08/04/23 Range/Units 21:06 WBC (3.8-10.6) k/uL RBC (3.80-5.40) m/uL Hgb (11.4-16.0) gm/dL Hct (34.0-46.0) % MCV (80.0-100.0) fL MCH (25.0-35.0) pg MCHC (31.0-37.0) g/dL RDW (11.5-15.5) % Plt Count (150-450) k/uL MPV Neutrophils % % Lymphocytes % % Monocytes % % Eosinophils % % Basophils % % Neutrophils # (1.3-7.7) k/uL Lymphocytes # (1.0-4.8) k/uL Monocytes # (0-1.0) k/uL Eosinophils # (0-0.7) k/uL Basophils # (0-0.2) k/uL Sodium (137-145) mmol/L Potassium (3.5-5.1) mmol/L Chloride (98-107) mmol/L Carbon Dioxide (22-30) mmol/L Anion Gap mmol/L BUN (7-17) mg/dL Creatinine (0.52-1.04) mg/dL Est GFR (CKD-EPI)AfAm (>60 ml/min/1.73 sqM) Est GFR (CKD-EPI)NonAf (>60 ml/min/1.73 sqM) Glucose (74-99) mg/dL Calcium (8.4-10.2) mg/dL Total Bilirubin (0.2-1.3) mg/dL AST (14-36) U/L ALT (4-34) U/L Alkaline Phosphatase (38-126) U/L Total Protein (6.3-8.2) g/dL Albumin (3.5-5.0) g/dL Urine Color Yellow Urine Appearance Clear (Clear) Urine pH 5.5 (5.0-8.0) Ur Specific [place] 1.020 (1.001-1.035) Urine Protein Trace H (Negative) Urine Glucose (UA) Negative (Negative) Urine Ketones Trace H (Negative) Urine Blood Trace H (Negative) Urine Nitrite Negative (Negative) Urine Bilirubin Negative (Negative) Urine Urobilinogen <2.0 (<2.0) mg/dL Ur Leukocyte Esterase Negative (Negative) Urine RBC <1 (0-5) /hpf Urine WBC 1 (0-5) /hpf Ur Squamous Epith Cells 2 (0-4) /hpf Urine Bacteria Rare H (None) /hpf Hyaline Casts 39 H (0-2) /lpf Urine Mucus Rare H (None) /hpf Influenza Type A (PCR) (Not Detectd) Influenza Type B (PCR) (Not Detectd) RSV (PCR) (Not Detectd) SARS-CoV-2 (PCR) (Not Detectd) Disposition Clinical Impression: Influenza A, Diarrhea, Generalized weakness Disposition: ADMITTED IP TO THIS HOSP Condition: Stable Is patient prescribed a controlled substance at d/c from ED?: No
[2023-08-04] MEDS: LOPERAMIDE 2 MG CAP PO STA (20:18)
[2023-08-04] MEDS: SODIUM CHLORIDE 0.9% 500 ML 500 ML IV ONE (20:25)
[2023-08-04 20:34] LABS: Basophils % (A) 0 %; Eosinophils % (A) 0 %; HCT 42.8 % (34.0-46.0); HGB 14.6 gm/dL (11.4-16.0); Lymphocytes # (A) 0.7 k/uL (1.0-4.8); Lymphocytes % (A) 6 %; MCH 29.2 pg (25.0-35.0); MCHC 34.1 g/dL (31.0-37.0); MCV 85.5 fL (80.0-100.0); Mean Platelet Volume 7.5; Monocytes # (A) 0.5 k/uL (0-1.0); Monocytes % (A) 4 %; Neutrophils % (A) 89 %; Platelet Count 339 k/uL (150-450); RDW 14.4 % (11.5-15.5); WBC 12.3 k/uL (3.8-10.6)
[2023-08-04 20:42] LABS: ALT 23 U/L (4-34); AST 34 U/L (14-36); African American GFR (CKD) 66 (>60 ml/min/1.73 sqM); Albumin 3.7 g/dL (3.5-5.0); Alkaline Phosphatase 91 U/L (38-126); Anion Gap 9 mmol/L; Blood Urea Nitrogen 33 mg/dL (7-17); Calcium 9.8 mg/dL (8.4-10.2); Carbon Dioxide 22 mmol/L (22-30); Chloride 108 mmol/L (98-107); Glucose 126 mg/dL (74-99); Non-African American GFR(CKD) 57 (>60 ml/min/1.73 sqM); Potassium 4.1 mmol/L (3.5-5.1); Sodium 139 mmol/L (137-145); Total Bilirubin 0.4 mg/dL (0.2-1.3); Total Protein 6.4 g/dL (6.3-8.2)
--- NOTE | 2023-08-04 20:52 | XR ---
EXAMINATION TYPE: XR chest 2V DATE OF EXAM: 08/04/2023 8:37 PM CLINICAL INDICATION:Female, 73 years old with history of cough; COMPARISON: Chest radiographs from 08/02/2023. TECHNIQUE: XR chest 2V Frontal and lateral views of the chest. FINDINGS: Lungs/Pleura: There is flattening of the diaphragm with increased lucency of the lungs. No evidence o f pneumothorax, pleural effusion or focal consolidation. Pulmonary vascularity: Unremarkable. Heart/mediastinum: Cardiomediastinal silhouette is unremarkable. Musculoskeletal: No acute osseous pathology. Other findings: None IMPRESSION: 1. No acute cardiopulmonary disease process. 2. COPD changes.
[2023-08-04] MEDS: NICOTINE 14MG/24HR PATCH TRANSDERM STA (21:16)
[2023-08-04 21:57] LABS: Appearance,Urine Clear (Clear); Bacteria,Urine Rare /hpf; Bilirubin,Urine Negative (Negative); Blood,Urine Trace (Negative); Color,Urine Yellow; Glucose,Urine (UA) Negative (Negative); Hyaline Casts,Urine 39 /lpf (0-2); Ketones,Urine Trace (Negative); Leukocyte Esterase,Urine Negative (Negative); Mucus,Urine Rare /hpf; Nitrite,Urine Negative (Negative); PH, Urine 5.5 (5.0-8.0); Protein,Urine Trace (Negative); RBC,Urine <1 /hpf (0-5); Squamous Epithelial Cell,Urine 2 /hpf (0-4); Urobilinogen,Urine <2.0 mg/dL (<2.0); WBC,Urine 1 /hpf (0-5)
[2023-08-04] MEDS ORDERED: NALOXONE 0.4 MG/ML 1 ML VIAL IV PRN (22:49)
[2023-08-04] MEDS: methylPREDNISolone SOD SUCCI 125 MG/2 ML VIAL IV STA (22:54)
[2023-08-04] MEDS: IPRATROPIUM 0.5 MG/2.5 ML NEBU INHALATION STA (23:19)
[2023-08-05] MEDS: SODIUM CHLORIDE 0.9% 1,000 ML IV SCH (01:54)
[2023-08-05] MEDS: ZINC OXIDE PASTE (Z-GUARD) 1 APPLIC TOPICAL ONE (01:55)
[2023-08-05 06:11] LABS: Glucose,Whole Blood 154 mg/dL (70-110)
[2023-08-05 09:25] LABS: Basophils % (A) 0 %; Eosinophils % (A) 0 %; HCT 42.7 % (34.0-46.0); HGB 14.5 gm/dL (11.4-16.0); Lymphocytes # (A) 0.8 k/uL (1.0-4.8); Lymphocytes % (A) 6 %; MCH 28.9 pg (25.0-35.0); MCHC 33.9 g/dL (31.0-37.0); MCV 85.2 fL (80.0-100.0); Mean Platelet Volume 7.8; Monocytes # (A) 0.6 k/uL (0-1.0); Monocytes % (A) 4 %; Neutrophils # (A) 11.6 k/uL (1.3-7.7); Neutrophils % (A) 88 %; Platelet Count 362 k/uL (150-450); RBC 5.01 m/uL (3.80-5.40); RDW 14.6 % (11.5-15.5); WBC 13.1 k/uL (3.8-10.6)
[2023-08-05 09:37] LABS: ALT 22 U/L (4-34); AST 32 U/L (14-36); African American GFR (CKD) 70 (>60 ml/min/1.73 sqM); Albumin 3.6 g/dL (3.5-5.0); Albumin/Globulin Ratio 1.3; Alkaline Phosphatase 82 U/L (38-126); Anion Gap 7 mmol/L; Blood Urea Nitrogen 30 mg/dL (7-17); Calcium 9.7 mg/dL (8.4-10.2); Carbon Dioxide 24 mmol/L (22-30); Chloride 108 mmol/L (98-107); Globulin 2.7 g/dL; Glucose 131 mg/dL (74-99); Non-African American GFR(CKD) 61 (>60 ml/min/1.73 sqM); Potassium 4.2 mmol/L (3.5-5.1); Sodium 139 mmol/L (137-145); Total Bilirubin 0.5 mg/dL (0.2-1.3); Total Protein 6.3 g/dL (6.3-8.2)
[2023-08-05] MEDS ORDERED: LEVALBUTEROL TARTRATE INHALATION PRN (10:46)
--- NOTE | 2023-08-05 11:11 | P.HPIM ---
History of Present Illness H&P Date: 08/05/23 Chief Complaint: influenza, cough, diarhea This is a pleasant 73-year-old female well-known to me. She has type 2 diabetes, hypothyroidism, hypertension, and artery disease and is a smoker. She has known COPD as well. She was in the emergency room after having some bradyca rdia. I'd seen her in the office at her heart rate was in the upper 30s. She seen and evaluated. She did not follow up with her cigarette examiner as of yet. After this though she became ill. She is back emergency room and diagnosed with influenza. She has not started on Tamiflu but was given some prednisone at that time. He reports after returning home she has significant diarrhea and urinary incontinence and significant coughing proximal systems. She has Xopenex and an oral for her COPD. She been back in the emergency room twice for this significant symptoms along with weakness. She presented again last night it was felt that observation stay was warranted at this time. Overnight her vitals were stable. She remains on room air. She continues to have proximal his symptoms of coughing along with urinary fecal incontinence from these episodes. Of note she has not had of fecal incontinence episode in the past 8 hours. He overall feels slightly better today. Review of Systems All systems: negative Past Medical History Past Medical History: Heart Failure, COPD, Diabetes Mellitus, GERD/Reflux, Hyper lipidemia, Hypertension, Pneumonia, Thyroid Disorder, Vascular Disorder Additional Past Medical History / Comment(s): NIDDM type II, bronchitis, R side caratid stenosis, osteoporosis, scoliosis, chronic pain bilateral hips/knees/ankles and rivs, hypothyroid, History of Any Multi-Drug Resistant Organisms: None Reported Past Surgical History: No Surgical Hx Reported Additional Past Surgical History / Comment(s): "pulled muscle in ribs" Past Anesthesia/Blood Transfusion Reactions: No Reported Reaction Additional Past Anesthesia/Blood Transfusion Reaction / Comment(s): PT HAS NEVER RECEIVED ANESTHESIA Past Psychological History: Anxiety, Panic Disorder Additional Psychological History / Comment(s): Pt resides with her 96 yr old mother. She assists her mother when needed. She uses no assistive device. She can drive, but does not own a car. She uses the bus system. Smoking Status: Current every day smoker Past Alcohol Use History: None Reported Additional Past Alcohol Use History / Comment(s): Pt started smoking about 1969 and smokes 2 ppd or a little more. Past Drug Use History: None Reported - Past Family History Mother Family Medical History: Thyroid Disorder Additional Family Medical History / Comment(s): hypothyroid Father Family Medical History: Myocardial Infarction (MT) Additional Family Medical History / Comment(s): Father of a MT before age 50 yrs. Brother(s) Additional Family Medical History / Comment(s): Chrons Medications and Allergies Home Medications Medication Instructions Recorded Confirmed Type traMADol HCL [Ultram] 50 - 100 mg PO BID 03/23/14 08/04/23 History Metoprolol Tartrate [Lopressor] 25 mg PO BID 09/17/15 08/04/23 History Pantoprazole Sodium 40 mg PO DAILY 11/29/15 08/04/23 History Atorvastatin [Lipitor] 40 mg PO HS 06/07/19 08/04/23 History lisinopriL [Zestril] 20 mg PO BID 06/07/19 08/04/23 History Aspirin 325 mg PO BID 07/27/19 08/04/23 History metFORMIN HCL ER [Glucophage XR] 1,000 mg PO DAILY@0800 07/27/19 08/04/23 History Levothyroxine Sodium [Levo-T] 150 mcg PO MOTHSA 05/09/22 08/04/23 History Levothyroxine Sodium [Synthroid] 75 mcg PO SUTUWEFR 05/09/22 08/04/23 History Calcium Carbonate [Calcium] 600 mg PO BID 07/25/23 08/04/23 History Umeclidinium Brm/Vilanterol Tr 1 puff INHALATION RT-DAILY 07/25/23 08/04/23 History [Anoro Ellipta 62.5-25 Mcg INH] amLODIPine [Norvasc] 5 mg PO DAILY 07/25/23 08/04/23 History traMADol HCL 50 - 100 mg PO DAILY PRN 07/25/23 08/04/23 History Nicotine 14Mg/24Hr Patch [Habitrol] 1 patch TRANSDERM DAILY patch 07/26/23 08/04/23 Rx Levalbuterol Tartrate 2 puff INHALATION RT-Q4H PRN #15 gm 08/03/23 08/04/23 Rx [Levalbuterol Tartrate 45 MCG Hfa] predniSONE [Deltasone] 60 mg PO DAILY 5 Days #15 tab 08/03/23 08/04/23 Rx Loperamide [Imodium] 2 mg PO QID #12 capsule 08/04/23 Rx Allergies Allergy/AdvReac Type Severity Reaction Status Date / Time azithromycin [From Zithromax] Allergy Rash/Hives Verified 08/04/23 21:58 clindamycin Allergy Rash/Hives Verified 08/04/23 21:58 Iodinated Contrast Media Allergy Rash/Hives Verified 08/04/23 21:58 adhesive tape AdvReac Severe bruises Verified 08/04/23 21:58 diphenhydramine HCl AdvReac Unknown KEEPS HER Verified 08/04/23 21:58 [From Benadryl] AWAKE. albuterol AdvReac Rapid Verified 08/04/23 21:58 Heart Rate, uses Levalbuterol bandaid AdvReac Severe bruise Uncoded 08/02/23 22:06 Physical Exam Vitals: Vital Signs Temp Pulse Pulse Resp BP BP Pulse Ox 08/05/23 07:00 97.6 F 71 18 113/63 95 08/05/23 01:56 18 08/05/23 00:49 97.6 F 71 16 139/82 93 L 08/04/23 21:14 68 18 114/69 95 08/04/23 19:49 97.6 F 68 18 135/85 95 Intake and Output 08/04/23 08/05/23 08/05/23 22:59 06:59 14:59 Other: # Voids 2 Weight 58.967 kg 58.967 kg GENERAL: Fatigued elderly female. Currently in no obvious distress. HEAD: Atraumatic, normocephalic. EYES: Pupils equal round and reactive to light, extraocular movements intact, sclera anicteric, conjunctiva are normal. ENT:nares patent, oropharynx clear without exudates. Moist mucous membranes. NECK: Normal range of motion, supple without lymphadenopathy or JVD, no thyromegaly LUNGS: Breath sounds coarse, there is decreased breath sounds consistent with her underlying COPD. At this time, No wheezes rales or rhonchi. HEART: Regular rate and rhythm without murmurs, rubs or gallops.S1S2 Normal ABDOMEN: Soft, nontender, normoactive bowel sounds. No guarding, no rebound. No masses appreciated. EXTREMITIES: Normal range of motion, no pitting or edema. No clubbing or cyanosis. NEUROLOGICAL: Cranial nerves II through XII grossly intact. Normal speech, normal gait. PSYCH: Normal mood, normal affect. SKIN: Warm, Dry, normal turgor, no rashes or lesions noted. Results CBC & Chem 7: 08/05/23 09:07 08/05/23 09:07 Labs: Abnormal Lab Results - Last 24 Hours (Table) 08/04/23 08/04/23 08/04/23 Range/Units 20:11 20:25 20:25 WBC 12.3 H (3.8-10.6) k/uL Neutrophils # 11.0 H (1.3-7.7) k/uL Lymphocytes # 0.7 L (1.0-4.8) k/uL Chloride 108 H (98-107) mmol/L BUN 33 H (7-17) mg/dL Glucose 126 H (74-99) mg/dL POC Glucose (mg/dL) (70-110) mg/dL Urine Protein (Negative) Urine Ketones (Negative) Urine Blood (Negative) Urine Bacteria (None) /hpf Hyaline Casts (0-2) /lpf Urine Mucus (None) /hpf Influenza Type A (PCR) Detected A (Not Detectd) 08/04/23 08/05/23 08/05/23 Range/Units 21:06 06:10 09:07 WBC 13.1 H (3.8-10.6) k/uL Neutrophils # 11.6 H (1.3-7.7) k/uL Lymphocytes # 0.8 L (1.0-4.8) k/uL Chloride (98-107) mmol/L BUN (7-17) mg/dL Glucose (74-99) mg/dL POC Glucose (mg/dL) 154 H (70-110) mg/dL Urine Protein Trace H (Negative) Urine Ketones Trace H (Negative) Urine Blood Trace H (Negative) Urine Bacteria Rare H (None) /hpf Hyaline Casts 39 H (0-2) /lpf Urine Mucus Rare H (None) /hpf Influenza Type A (PCR) (Not Detectd) 08/05/23 Range/Units 09:07 WBC (3.8-10.6) k/uL Neutrophils # (1.3-7.7) k/uL Lymphocytes # (1.0-4.8) k/uL Chloride 108 H (98-107) mmol/L BUN 30 H (7-17) mg/dL Glucose 131 H (74-99) mg/dL POC Glucose (mg/dL) (70-110) mg/dL Urine Protein (Negative) Urine Ketones (Negative) Urine Blood (Negative) Urine Bacteria (None) /hpf Hyaline Casts (0-2) /lpf Urine Mucus (None) /hpf Influenza Type A (PCR) (Not Detectd) Chest x-ray: report reviewed Thrombosis Risk Factor Assmnt - DVT/VTE Prophylaxis DVT/VTE Prophylaxis: Pharmacologic Prophylaxis ordered - Choose All That Apply Any of the Below Risk Factors Present?: Yes Each Factor Represents 1 point: Abnormal pulmonary function (COPD) Other Risk Factors: Yes Each Risk Factor Represents 2 Points: Age 61-74 years Other congenital or acquired thrombophilia - If yes, enter type in comment: No Thrombosis Risk Factor Assessment Total Risk Factor Score: 3 Thrombosis Risk Factor Assessment Level: Moderate Risk Assessment and Plan (1) Influenza A Current Visit: Yes Status: Acute Code(s): J10.1 - FLU DUE TO OTH IDENT INFLUENZA VIRUS W OTH RESP MANIFEST SNOMED Code(s): 458018717 (2) Paroxysmal cough Current Visit: Yes Status: Acute Code(s): R05.8 - OTHER SPECIFIED COUGH SNOMED Code(s): 77816371 (3) Fecal incontinence Current Visit: Yes Status: Acute Code(s): R15.9 - FULL INCONTINENCE OF FECES SNOMED Code(s): 52596242 (4) Urinary incontinence Current Visit: Yes Status: Acute Code(s): R32 - UNSPECIFIED URINARY INCONTIN ENCE SNOMED Code(s): 314007877 (5) Diarrhea Current Visit: Yes Status: Acute Code(s): R19.7 - DIARRHEA, UNSPECIFIED SNOMED Code(s): 70347399 (6) Generalized weakness Current Visit: Yes Status: Acute Code(s): R53.1 - WEAKNESS SNOMED Code(s): 88819295 (7) Bradycardia Current Visit: No Status: Acute Code(s): R00.1 - BRADYCARDIA, UNSPECIFIED SNOMED Code(s): 05735591 (8) COPD exacerbation Current Visit: No Status: Acute Code(s): J44.1 - CHRONIC OBSTRUCTIVE PULMONARY DISEASE W (ACUTE) EXACERBATION SNOMED Code(s): 699897857 (9) Diabetes Current Visit: No Status: Acute Code(s): E11.9 - TYPE 2 DIABETES MELLITUS WITHOUT COMPLICATIONS SNOMED Code(s): 02639580 (10) Hypertension Current Visit: No Status: Acute Code(s): I10 - ESSENTIAL (PRIMARY) HYPERTENSION SNOMED Code(s): 29070919 Plan: I will reorder home medications but hold her metoprolol since been causing significant bradycardia. We will order Tamiflu as her some evidence in older folks who remained sick of benefit. She can use her leave albuterol inhaler. She will continue on Atrovent updrafts. IV Solu-Medrol 60 every 6. Tramadol as needed for pain, Xanax if needed for anxiety and irritation. NovoLog scale, Accu-Cheks before meals and at bedtime. Close monitoring. Repeat labs in a.m. She'll remain in observation.
[2023-08-05] MEDS: IPRATROPIUM 0.5 MG/2.5 ML NEBU INHALATION SCH (11:30)
[2023-08-05 12:19] LABS: Glucose,Whole Blood 115 mg/dL (70-110)
[2023-08-05] MEDS: LEVOTHYROXINE 75 MCG TAB PO SCH (12:55)
[2023-08-05] MEDS: amLODIPine 5 MG TAB PO SCH (12:55)
[2023-08-05] MEDS: CALCIUM CARBONATE 500 MG CHEWABLE PO SCH (12:55)
[2023-08-05] MEDS: lisinopriL 20 MG TAB PO SCH (12:56)
[2023-08-05] MEDS: HEPARIN SODIUM,PORCINE 5,000 UNIT/ML 1 ML VIAL SQ SCH (12:59)
[2023-08-05] MEDS: INSULIN ASPART (NovoLOG) 100 UNIT/ML VIAL SQ SCH (13:00)
[2023-08-05] MEDS: ASPIRIN 325 MG TAB PO SCH (13:03)
[2023-08-05] MEDS: NICOTINE 14MG/24HR PATCH TRANSDERM SCH (13:03)
[2023-08-05] MEDS: LOPERAMIDE 2 MG CAP PO PRN (13:03)
[2023-08-05] MEDS: PANTOPRAZOLE 40 MG TABLET PO SCH (13:03)
[2023-08-05] MEDS: methylPREDNISolone SOD SUCCI 125 MG/2 ML VIAL IV SCH (13:04)
[2023-08-05] MEDS: OSELTAMIVIR 60 MG/10 ML ORAL SYRINGE PO SCH (13:04)
[2023-08-05] MEDS: traMADol 50 MG TAB PO PRN (13:11)
[2023-08-05 17:16] LABS: Glucose,Whole Blood 115 mg/dL (70-110)
[2023-08-05] MEDS: ATORVASTATIN 40 MG TAB PO SCH (20:19)
[2023-08-05 20:25] LABS: Glucose,Whole Blood 170 mg/dL (70-110)
[2023-08-06 05:58] LABS: Glucose,Whole Blood 168 mg/dL (70-110)
[2023-08-06] MEDS: metFORMIN 500 MG TAB PO SCH (06:32)
[2023-08-06] MEDS: LEVOTHYROXINE 75 MCG TAB PO SCH (06:32)
[2023-08-06 11:02] LABS: Basophils # (A) 0.04 X 10*3/uL (0.00-0.10); Basophils % (A) 0.5 %; Eosinophils # (A) 0 X 10*3/uL (0.04-0.35); Eosinophils % (A) 0 %; HCT 38.8 % (37.2-46.3); Lymphocytes % (A) 8.1 %; MCHC 33.5 g/dL (32.0-37.0); MCV 83.6 FL (80.0-97.0); Mean Platelet Volume 9.7 FL (9.5-12.2); Monocytes # (A) 0.46 X 10*3/uL (0.20-1.00); Monocytes % (A) 5.3 %; NRBC Per 100 WBC 0 X 10*3/uL (0.00-0.01); Neutrophils # (A) 7.04 X 10*3/uL (1.80-7.70); Neutrophils % (A) 81.9 %; Platelet Count 333 X 10*3/uL (140-440); RBC 4.64 X 10*6/uL (4.10-5.20); RDW 15.3 % (11.5-14.5)
[2023-08-06 11:10] LABS: Blood Urea Nitrogen 25.9 mg/dL (9.0-27.0); Calcium 9.4 mg/dL (8.7-10.3); Carbon Dioxide 22.3 mmol/L (21.6-31.8); Chloride 108 mmol/L (96-109); Glucose 179 mg/dL (70-110); Magnesium 1.9 mg/dL (1.5-2.4); Potassium 4.3 mmol/L (3.5-5.5); Sodium 141 mmol/L (135-145)
[2023-08-06] MEDS ORDERED: traMADol 50 MG TAB PO PRN (11:25)
[2023-08-06] MEDS: METOPROLOL TARTRATE 25 MG TAB PO SCH (12:02)
[2023-08-06] MEDS: traMADol 50 MG TAB PO PRN (12:02)
[2023-08-06 12:04] LABS: Glucose,Whole Blood 123 mg/dL (70-110)
--- NOTE | 2023-08-06 14:09 | P.DS ---
Providers Date of admission: 08/04/23 23:06 Expected date of discharge: 08/06/23 Attending physician: Zach Ramirez Primary care physician: Zach Ramirez [facility] Course: Final Diagnoses: (1) Influenza A Current Visit: Yes Status: Acute Code(s): J10.1 - FLU DUE TO OTH IDENT INFLUENZA VIRUS W OTH RESP MANIFEST SNOMED Code(s): 015658968 (2) Paroxysmal cough Current Visit: Yes Status: Acute Code(s): R05.8 - OTHER SPECIFIED COUGH SNOMED Code(s): 86699792 (3) Fecal incontinence Current Visit: Yes Status: Acute Code(s): R15.9 - FULL INCONTINENCE OF FECES SNOMED Code(s): 29685375 (4) Urinary incontinence Current Visit: Yes Status: Acute Code(s): R32 - UNSPECIFIED URINARY INCONTINENCE SNOMED Code(s): 219071725 (5) Diarrhea Current Visit: Yes Status: Acute Code(s): R19.7 - DIARRHEA, UNSPECIFIED SNOMED Code(s): 15814063 (6) Generalized weakness Current Visit: Yes Status: Acute Code(s): R53.1 - WEAKNESS SNOMED Code(s): 96977645 (7) Bradycardia Current Visit: No Status: Acute Code(s): R00.1 - BRADYCARDIA, UNSPECIFIED SNOMED Code(s): 47143595 (8) COPD exacerbation Current Visit: No Status: Acute Code(s): J44.1 - CHRONIC OBSTRUCTIVE PULMONARY DISEASE W (ACUTE) EXACERBATION SNOMED Code(s): 665679780 (9) Diabetes Current Visit: No Status: Acute Code(s): E11.9 - TYPE 2 DIABETES MELLITUS WITHOUT COMPLICATIONS SNOMED Code(s): 12050152 (10) Hypertension Current Visit: No Status: Acute Code(s): I10 - ESSENTIAL (PRIMARY) HYPERTE NSION SNOMED Code(s): 35644313 Hospital course:This is a pleasant 73-year-old female well-known to me. She has type 2 diabetes, hypothyroidism, hypertension, and artery disease and is a smoker. She has known COPD as well. She was in the emergency room after having some bradycardia. I'd seen her in the office at her heart rate was in the upper 30s. She seen and evaluated. She did not follow up with her principal technical specialist as of yet. After this though she became ill. She is back emergency room and diagnosed with influenza. She has not started on Tamiflu but was given some prednisone at that time. He reports after returning home she has significant diarrhea and urinary incontinence and significant coughing proximal systems. She has Xopenex and an oral for her COPD. She been back in the emergency room twice for this significant symptoms along with weakness. She presented again last night it was felt that observation stay was warranted at this time. Overnight her vitals were stable. She remains on room air. She continues to have proximal his symptoms of coughing along with urinary fecal incontinence from these episodes. Of note she has not had of fecal incontinence episode in the past 8 hours. He overall feels slightly better today. Maintained on Tamiflu, IV fluid hydration, steroids. Diarrhea has subsided. Denies chest pain, palpitations or shortness of breath. Significant clinical improvement. Patient will be discharged home today in a stable condition with guarded prognosis pending PT/OT evaluation/recommendations, O2 sat on room air after ambulation. Smoking sensation reinforced. The impression and plan of care has been dictated as directed. : I performed a history and examination of this patient, discussed the same with the dictator. I agree with the dictator's note ,documented as a scribe. Any additional findings or plans will be noted. Patient Condition at Discharge: Stable Plan - Discharge Summary New Discharge Prescriptions: New Oseltamivir 6Mg/ml Oral Susp [Tamiflu] 30 mg PO Q12HR #7 each Loperamide [Imodium] 2 mg PO QID #12 capsule Continue traMADol HCL [Ultram] 50 - 100 mg PO BID Metoprolol Tartrate [Lopressor] 25 mg PO BID Pantoprazole Sodium 40 mg PO DAILY lisinopriL [Zestril] 20 mg PO BID Atorvastatin [Lipitor] 40 mg PO HS metFORMIN HCL ER [Glucophage XR] 1,000 mg PO DAILY@0800 Aspirin 325 mg PO BID Levothyroxine Sodium [Synthroid] 75 mcg PO SUTUWEFR amLODIPine [Norvasc] 5 mg PO DAILY Umeclidinium Brm/Vilanterol Tr [Anoro Ellipta 62.5-25 Mcg INH] 1 puff INHALATION RT-DAILY traMADol HCL 50 - 100 mg PO DAILY PRN PRN Reason: Pain Calcium Carbonate [Calcium] 600 mg PO BID Nicotine 14Mg/24Hr Patch [Habitrol] 1 patch TRANSDERM DAILY patch Levalbuterol Tartrate [Levalbuterol Tartrate 45 MCG Hfa] 2 puff INHALATION RT-Q4H PRN #15 gm PRN Reason: Shortness Of Breath Levothyroxine Sodium [Levo-T] 150 mcg PO MOTHSA predniSONE [Deltasone] 60 mg PO DAILY 5 Days #15 tab Discharge Medication List traMADol HCL [Ultram] 50 - 100 mg PO BID 03/23/14 [History] Metoprolol Tartrate [Lopressor] 25 mg PO BID 09/17/15 [History] Pantoprazole Sodium 40 mg PO DAILY 11/29/15 [History] Atorvastatin [Lipitor] 40 mg PO HS 06/07/19 [History] lisinopriL [Zestril] 20 mg PO BID 06/07/19 [History] Aspirin 325 mg PO BID 07/27/19 [History] metFORMIN HCL ER [Glucophage XR] 1,000 mg PO DAILY@0800 07/27/19 [History] Levothyroxine Sodium [Levo-T] 150 mcg PO MOTHSA 05/09/22 [History] Levothyroxine Sodium [Synthroid] 75 mcg PO SUTUWEFR 05/09/22 [History] Calcium Carbonate [Calcium] 600 mg PO BID 07/25/23 [History] Umeclidinium Brm/Vilanterol Tr [Anoro Ellipta 62.5-25 Mcg INH] 1 puff INHALATION RT-DAILY 07/25/23 [History] amLODIPine [Norvasc] 5 mg PO DAILY 07/25/23 [History] traMADol HCL 50 - 100 mg PO DAILY PRN 07/25/23 [History] Nicotine 14Mg/24Hr Patch [Habitrol] 1 patch TRANSDERM DAILY patch 07/26/23 [Rx] Levalbuterol Tartrate [Levalbuterol Tartrate 45 MCG Hfa] 2 puff INHALATION RT- Q4H PRN #15 gm 08/03/23 [Rx] Loperamide [Imodium] 2 mg PO QID #12 capsule 08/04/23 [Rx] Oseltamivir 6Mg/ml Oral Susp [Tamiflu] 30 mg PO Q12HR #7 each 08/06/23 [Rx] predniSONE [Deltasone] 60 mg PO DAILY 5 Days #15 tab 08/06/23 [Rx] Follow up Appointment(s)/Referral(s): [facility] [facility] [NON-STAFF] - As Needed (CALL TO SET UP MEALS ON WHEELS) Zach Ramirez MD [Primary Care Provider] - 3 Days Patient Instructions/Handouts: Influenza (ED) Activity/Diet/Wound Care/Special Instructions: Meals on Wheels, no smoking Discharge/Stand Alone Forms: Who Do I Call?, Community Resources
[2023-08-06 15:16] VITALS: BP 113/73; PULSE 70; RESP 18; TEMP 97.6
[2023-08-06] MEDS: ALPRAZolam 0.25 MG TAB PO PRN (15:53)
[2023-08-07] MEDS ORDERED: FORMOTEROL FUMARATE 20 MCG/2 ML NEBU INHALATION SCH (08:00)
[2023-08-07] MEDS ORDERED: predniSONE 20 MG TAB PO SCH (09:00)
== END 2023-08-06 16:17 | disposition home or self-care (01) ==
LOC: EC 19:48 → 6NMEDSUR 23:06
PROVIDERS: ADMIT Family Medicine; ATTEND Family Medicine
DX: J10.1 Influenza due to other identified influenza virus with other respiratory manifestations (principal); R05.8 Other specified cough; R15.9 Full incontinence of feces; R32 Unspecified urinary incontinence; R19.7 Diarrhea, unspecified; R00.1 Bradycardia, unspecified; J44.1 Chronic obstructive pulmonary disease with (acute) exacerbation; E11.9 Type 2 diabetes mellitus without complications; I10 Essential (primary) hypertension; E03.9 Hypothyroidism, unspecified; F17.210 Nicotine dependence, cigarettes, uncomplicated; Z79.890 Hormone replacement therapy; Z79.82 Long term (current) use of aspirin; Z79.899 Other long term (current) drug therapy; Z79.84 Long term (current) use of oral hypoglycemic drugs
CPT/HCPCS: 96361 ×2; 96365; 96366 ×2; 99285; 36415; 94640 ×4; 97166; 80053 ×2; 80048; 83735; 85025 ×3; 81001; 87636; 71046; G0378 ×3; S4990 ×3; J2930 ×2

== ENCOUNTER → 2024-01-02 | Outpatient (CLI) | payer MEDICARE, OTHER ==
[2024-01-02 20:44] LABS: ALT 16 U/L (8-44); AST 22 U/L (13-35); Albumin 4.6 g/dL (3.8-4.9); Albumin/Globulin Ratio 2.09 Ratio (1.60-3.17); Alkaline Phosphatase 91 U/L (41-126); Blood Urea Nitrogen 20.1 mg/dL (9.0-27.0); Calcium 10.5 mg/dL (8.7-10.3); Carbon Dioxide 22.7 mmol/L (21.6-31.8); Chloride 106 mmol/L (96-109); Globulin 2.2 g/dL (1.6-3.3); Glucose 125 mg/dL (70-110); Potassium 4.7 mmol/L (3.5-5.5); Sodium 143 mmol/L (135-145); Total Bilirubin 0.2 mg/dL (0.3-1.2); Total Protein 6.8 g/dL (6.2-8.2)
== END | disposition home or self-care (01) ==
LOC: LABWHC1 14:05
PROVIDERS: ATTEND Family Medicine
DX: E11.59 Type 2 diabetes mellitus with other circulatory complications (principal); I10 Essential (primary) hypertension; J44.9 Chronic obstructive pulmonary disease, unspecified; E11.69 Type 2 diabetes mellitus with other specified complication; E03.9 Hypothyroidism, unspecified; E78.2 Mixed hyperlipidemia; F17.210 Nicotine dependence, cigarettes, uncomplicated
CPT/HCPCS: 36415; 80053; 82043; 82570; 84443

== ENCOUNTER → 2024-01-02 | Outpatient (CLI) | payer MEDICARE, OTHER ==
--- NOTE | 2024-01-03 12:39 | CTL ---
EXAMINATION TYPE: CT Low Dose Lung DATE OF EXAM ORDERED: 01/02/2024 HISTORY: . Low Dose CT Lung Screening CT DLP: 59.[address] CTDI: 1.5 mGy IV CONTRAST USED: None. SCREENING VISIT: First visit COMPARISON: 09/24/2020 TECHNIQUE: Low dose computed tomography scan was performed through the chest at 1 millimeter thick se ctions and reconstructed images in the coronal plane at [address] DIAGNOSTIC QUALITY: Satisfactory FINDINGS: LUNG NODULES: No pulmonary nodularity visualized greater than 5 mm. LUNGS: COPD: Severity: Moderate Fibrosis: Severity:None Lymph nodes: None Other findings: Linear parenchymal scarring again noted within the lingula and right middle lobe. RIGHT PLEURAL SPACE: Effusion: None Calcification: None Thickening: None Pneumothorax: None LEFT PLEURAL SPACE: Effusion: None Calcification: None Thickening: None Pneumothorax: None HEART: Heart Size: Mildly enlarged Coronary calcification: Mild Pericardial effusion: None OTHER FINDINGS: Upper abdomen: No significant abnormality Bony thorax: Degenerative changes Supraclavicular region: No significant abnormalityOther: No significant abnormalityI IMPRESSION: No pulmonary nodularity greater than [address] CHEST RECOMMENDATION: Follow-up screening in one year CT LUNG RAD: LUNG RAD CATEGORY 2 benign appearance and/or behavior.
== END | disposition home or self-care (01) ==
LOC: EEVIPCON → RADCTMAIN 12:51
PROVIDERS: ATTEND Internal Medicine
DX: Z12.2 Encounter for screening for malignant neoplasm of respiratory organs (principal); F17.210 Nicotine dependence, cigarettes, uncomplicated
CPT/HCPCS: 71271

== ENCOUNTER → 2024-07-14 | Outpatient (CLI) | payer MEDICARE, OTHER ==
--- NOTE | 2024-07-14 14:57 | MM ---
Reason for Exam: Screening (asymptomatic). Last mammogram was performed 1 year(s) and 3 month(s) ago. Patient History: Menarche at age 13. First Full-Term at age 21. Postmenopausal. Risk Values: Soo 5 year model risk: 1.6%. NCI Lifetime model risk: 3.9%. Prior Study Comparison: 12/11/2017 Bilateral Screening Mammogram, [facility]. 11/12/2020 Bilateral Screening Mammogram, [facility]. 03/26/2023 Bilateral MG 3D screening mammo w/cad, [facility]. Tissue Density: The breasts are almost entirely fatty. Findings: Analyzed By CAD. Right breast: There is no suspicious group of microcalcifications or new suspicious mass. Left breast: There is no suspicious group of microcalcifications or new suspicious mass. Overall Assessment: Negative, BI-RAD 1 Management: Screening Mammogram of both breasts in [address] [facility] will attempt to contact patient to return for supplemental views and ultrasound if indicated. Patient should continue monthly self-breast exams. A clinical breast exam by your physician is recommended on an annual basis. This exam should not preclude additional follow-up of suspicious palpable abnormalities. Note on Soo scores and lifetime risk: 1. A Soo score greater than 3% is considered moderate risk. If this is the case, consider specialist referral to assess eligibility for a risk reducing agent. 2. If overall lifetime risk for the development of breast cancer is 20% or higher, the patient may qualify for future screening with alternating mammogram and breast MRI. [facility], , 07/14/2024 2:54 PM. Electronically signed and approved by: Ken Veloz DO
[2024-07-14 19:17] LABS: Basophils # (A) 0.08 X 10*3/uL (0.00-0.10); Basophils % (A) 0.9 %; Eosinophils # (A) 0.13 X 10*3/uL (0.04-0.35); Eosinophils % (A) 1.4 %; HCT 43.6 % (37.2-46.3); HGB 14.3 g/dL (12.0-15.0); Lymphocytes # (A) 3.01 X 10*3/uL (0.90-5.00); Lymphocytes % (A) 32.8 %; MCH 28.4 pg (27.0-32.0); MCHC 32.8 g/dL (32.0-37.0); MCV 86.5 FL (80.0-97.0); Mean Platelet Volume 9.8 FL (9.5-12.2); Monocytes # (A) 0.64 X 10*3/uL (0.20-1.00); NRBC Per 100 WBC 0 X 10*3/uL (0.00-0.01); Neutrophils # (A) 5.25 X 10*3/uL (1.80-7.70); Neutrophils % (A) 57.2 %; Platelet Count 293 X 10*3/uL (140-440); RBC 5.04 X 10*6/uL (4.10-5.20); RDW 14.6 % (11.5-14.5); WBC 9.17 X 10*3/uL (4.50-10.00)
[2024-07-14 19:25] LABS: ALT 15 U/L (8-44); AST 19 U/L (13-35); Albumin 4.2 g/dL (3.8-4.9); Alkaline Phosphatase 95 U/L (41-126); Blood Urea Nitrogen 23.8 mg/dL (9.0-27.0); Calcium 10.3 mg/dL (8.7-10.3); Carbon Dioxide 21.8 mmol/L (21.6-31.8); Chloride 111 mmol/L (96-109); Chol/HDL Ratio 2.24 Ratio; Globulin 2.1 g/dL (1.6-3.3); Glucose 145 mg/dL (70-110); LDL Cholesterol,Calculated 49.5 mg/dL (0.0-131.0); Potassium 4.4 mmol/L (3.5-5.5); Sodium 148 mmol/L (135-145); Total Bilirubin 0.3 mg/dL (0.3-1.2); Total Protein 6.3 g/dL (6.2-8.2)
== END | disposition home or self-care (01) ==
LOC: RADMAMWWP 13:17
PROVIDERS: ATTEND Family Medicine
DX: Z12.31 Encounter for screening mammogram for malignant neoplasm of breast (principal); Z00.00 Encounter for general adult medical examination without abnormal findings; E11.69 Type 2 diabetes mellitus with other specified complication; R80.9 Proteinuria, unspecified; I10 Essential (primary) hypertension; E11.59 Type 2 diabetes mellitus with other circulatory complications; Z12.11 Encounter for screening for malignant neoplasm of colon; E78.2 Mixed hyperlipidemia; E03.9 Hypothyroidism, unspecified; Z78.0 Asymptomatic menopausal state; R92.313 Mammographic fatty tissue density, bilateral breasts
CPT/HCPCS: 77067; 80053; 80061; 84443; 85025

== ENCOUNTER → 2024-09-30 | Outpatient (CLI) | payer MEDICARE, OTHER ==
[2024-09-30 19:01] LABS: ALT 21 U/L (8-44); AST 23 U/L (13-35); Alkaline Phosphatase 90 U/L (41-126); Blood Urea Nitrogen 18.7 mg/dL (9.0-27.0); Calcium 9.8 mg/dL (8.7-10.3); Carbon Dioxide 21.5 mmol/L (21.6-31.8); Chloride 105 mmol/L (96-109); Globulin 2.1 g/dL (1.6-3.3); Glucose 124 mg/dL (70-110); Potassium 4.8 mmol/L (3.5-5.5); Sodium 139 mmol/L (135-145); Total Bilirubin 0.2 mg/dL (0.3-1.2); Total Protein 6.1 g/dL (6.2-8.2)
== END | disposition home or self-care (01) ==
LOC: LABWHC1 14:03
PROVIDERS: ATTEND Family Medicine
DX: Z12.11 Encounter for screening for malignant neoplasm of colon (principal); E11.69 Type 2 diabetes mellitus with other specified complication
CPT/HCPCS: 36415; 80053; 82043; 82570